=== PATIENT | male | born 1940 | race Caucasian/White ===

== ENCOUNTER 2020-01-04 12:23 | Outpatient (REF) | payer MEDICARE, SELFPAY ==
[2020-01-04 14:44] LABS: Hemoglobin 15.6 g/dl (14.0-18.0); Mean Corpuscular HGB Conc 33.2 g/dl (31.0-36.0); Mean Corpuscular Hemoglobin 34.2 pg (27.0-33.0); Mean Corpuscular Volume 103.1 fL (80-98); Mean Platelet Volume 10.1 fL (9.4-12.4); Platelet Count 261 X10*3/uL (160-400); Red Blood Count 4.56 X10*6/uL (4.60-5.80); Red Cell Distribution Width 14.5 % (11.0-16.0); White Blood Count 9.2 X10*3/uL (4.8-10.8)
[2020-01-04 15:16] LABS: Anion Gap 14 (12-20); Blood Urea Nitrogen 20 mg/dL (9-16); Calcium 9.2 mg/dL (8.4-10.2); Carbon Dioxide 27 mmol/L (22-29); Chloride 102 mmol/L (96-108); Estimated Glomerular Filt Rate > 60; Glucose Random 110 mg/dL (60-115); Potassium 4.3 mmol/l (3.3-5.1); Sodium 139 mmol/L (135-145)
== END 2020-01-04 12:24 | disposition home or self-care (01) ==
LOC: HO.LAB 12:23
PROVIDERS: PCP Internal Medicine; Visit Provider Internal Medicine Cardiovascular Disease
DX: I48.0 Paroxysmal atrial fibrillation (principal); I44.2 Atrioventricular block, complete; I10 Essential (primary) hypertension; Z95.0 Presence of cardiac pacemaker
CPT/HCPCS: 36415; 80048; 85027; 99212

== ENCOUNTER 2020-04-22 10:17 | Outpatient (REF) | payer MEDICARE, SELFPAY ==
[2020-04-22 10:29] LABS: MANUAL DIFF FLAG NO
[2020-04-22 10:52] LABS: Basophils Percent Auto 0.4 % (0-2); Eosinophils Absolute Auto 0.4 X10*3/uL (0.0-0.4); Eosinophils Percent Auto 4.3 % (0-4); Hematocrit 48.5 % (42-52); Hemoglobin 16.1 g/dl (14.0-18.0); Imm Gran Abs Auto 0.05 X10*3/uL (0.00-0.03); Imm Gran Pct Auto 0.6 % (0.0-0.4); Lymphocytes Absolute Auto 2.3 X10*3/uL (1.2-4.9); Lymphocytes Percent Auto 28.6 % (20-40); Mean Corpuscular HGB Conc 33.2 g/dl (31.0-36.0); Mean Corpuscular Volume 102.3 fL (80-98); Mean Platelet Volume 10.7 fL (9.4-12.4); Monocytes Absolute Auto 0.8 X10*3/uL (0.1-1.2); Monocytes Percent Auto 10.4 % (2-11); Neutrophils Absolute Auto 4.5 X10*3/uL (2.0-8.3); Neutrophils Percent Auto 55.7 % (45-73); Platelet Count 247 X10*3/uL (160-400); Red Blood Count 4.74 X10*6/uL (4.60-5.80); Red Cell Distribution Width 13.7 % (11.0-16.0); White Blood Count 8.1 X10*3/uL (4.8-10.8)
[2020-04-22 11:05] LABS: Estimated Average Glucose 126 mg/dL
[2020-04-22 11:06] LABS: Glucose Urine UA NEG (NEG); Leukocyte Esterase Urine NEG (NEG); Nitrite Urine NEG (NEG); Urine Blood NEG (NEG); Urine Ketones NEG (NEG); Urine Protein NEG (NEG-TRACE)
[2020-04-22 11:09] LABS: Appearance Urine CLEAR; Color Urine YELLOW
[2020-04-22 11:47] LABS: Alanine Aminotransferase 32 U/L (0-40); Albumin Level 4.2 g/dL (3.5-5.0); Alkaline Phosphatase 105 U/L (39-117); Anion Gap 14 (12-20); Aspartate Amino Transferase 28 U/L (5-37); Bilirubin Total 0.8 mg/dL (0.0-1.0); Blood Urea Nitrogen 21 mg/dL (9-16); Carbon Dioxide 28 mmol/L (22-29); Chloride 102 mmol/L (96-108); Cholesterol 213 mg/dL; Estimated Glomerular Filt Rate > 60; Glucose Fasting 108 mg/dL (60-99); HDL Cholesterol 40 mg/dL; LDL Cholesterol Calculated 147 mg/dl; Potassium 4.3 mmol/L (3.3-5.1); Sodium 140 mmol/L (135-145); Total Protein 7.2 g/dL (6.5-8.0); Triglycerides 131 mg/dL
== END 2020-04-22 10:18 | disposition home or self-care (01) ==
LOC: HO.LNP 10:17
PROVIDERS: Visit Provider Internal Medicine
DX: Z00.00 Encounter for general adult medical examination without abnormal findings (principal); I10 Essential (primary) hypertension; R73.03 Prediabetes; R79.9 Abnormal finding of blood chemistry, unspecified; R97.20 Elevated prostate specific antigen [PSA]; E78.00 Pure hypercholesterolemia, unspecified
CPT/HCPCS: 80053; 80061; 81003; 83036; 85025

== ENCOUNTER → 2020-07-04 12:39 | Outpatient (BNVA) | payer MEDICARE, SELFPAY | PROVIDERS: PCP Internal Medicine; Visit Provider Internal Medicine Cardiovascular Disease | DX: Z45.018 Encounter for adjustment and management of other part of cardiac pacemaker (principal); I48.0 Paroxysmal atrial fibrillation | CPT/HCPCS: 99212 ==

== ENCOUNTER → 2020-07-21 08:11 | Outpatient (REF) | payer MEDICARE, SELFPAY ==
--- NOTE | 2020-07-21 08:15 | CA_ITS ---
Transthoracic Echocardiogram Patient (Last, First, Middle): Deven Escobar F Gender: Male Date of : 1940 Age: 79 Procedure Date: 07/21/2020 Procedure Type: Transthoracic Echocardiogram Location: OP Height: 167.64 cm Weight: 83.92 kg BSA: 1.93 m2 Heart Rate: bpm BP: 140 / 70 mmHg Nutrition Coordinator: Ronald MD: Dex Blair MD [employer] Planner: Dex Blair MD Symptoms: I48.0 - Paroxysmal atrial fibrillation Study Quality: Fair ECG Rhythm: Ventriculary paced rhythm Conclusions: - 1. Normal LV systolic function with mild LVH with impaired relaxation filling pattern with elevated filling pressures 2. Moderate mitral and calcification with normal cardiac valvular Doppler 3. Normal RV systolic pressure 4. No pericardial effusion Findings Left Ventricle Normal left ventricular size and systolic function. There is mildly increased left ventricular wall thickness. The visually estimated ejection fraction is between 60-65%. There is paradoxical septal motion consistent with a right ventricular pacemaker. Spectral Doppler is indicative of an impaired relaxation filling pattern. Elevated filling pressures. E/E prime ratio is >15, consistent with elevated filling pressures. Right Ventricle Mildly increased right ventricular cavity size. There is normal right ventricular systolic function. There is a pacemaker wire seen in the right ventricle. Atria The left atrium is likely dilated. There is lipomatous hypertrophy of the interatrial septum. There is no evidence of interatrial shunt. The right atrium is likely dilated. A pacemaker wire is identified in the right atrium. Aortic Valve There is mild calcification of the aortic valve. There is no aortic valve stenosis. There is no aortic valve regurgitation. Mitral Valve There is mild anterior and moderate posterior mitral leaflet thickening. There is moderate mitral annular calcification. There is trace mitral valve regurgitation. There is no mitral valve stenosis. Pulmonic Valve The pulmonic valve was not well visualized. Tricuspid Valve Likely normal tricuspid valve structure and function. There is mild tricuspid valve regurgitation. The right ventricular systolic pressure is normal. The right ventricular systolic pressure is 33 mmHg. Normal right atrial pressure. There is no evidence of pulmonary hypertension. Great Vessels All visible segments of the aorta are normal in size. The pulmonary artery was not well visualized. Venous The inferior vena cava is normal in size and collapses greater than 50% with inspiration. Pericardium/Pleural There is no evidence of pericardial effusion. Prior Study Comparison No significant change compared to prior study dated: 06/02/2019. Measurements 2D Linear Measurements RVIDd: 2.63 RVIDd Index: 1.36 IVSd: 1.31 0.6-0.9/0.6-1.0 cm LVIDd: 4.61 3.9-5.3/4.2-5.9 cm LVIDd Index: 2.39 2.4-3.2/2.2-3.1 cm/m2 LVIDs: 3.28 2.0-3.6 cm LVPWd: 1.11 0.7-1.1 cm Ao Root: 3.00 2.1-3.5 cm LA Diam: 3.80 2.7-3.8/3.0-4.0 cm LAIDs Index: 1.97 1.5-2.3 cm/m2 LV Mass: 259.44 67-162/88-224 g LV Mass Index: 134.42 43-95/49-115 g/m2 LVOT Diam: 2.10 3.0+(-)1.3 cm 2D Systolic Function EF 4C: 64.70 >55% EF 2C: 59.10 >55% EF BiP: 61.50 >55% Mitral Valve MV Pk E: 0.97 MV PK A: 1.29 MV Decel Time: 232.00 E/A: 0.70 E'Lateral: 5.55 E'Medial: 5.44 E/E' Med: 17.70 E/E' Lat: 17.40 Aortic Valve AoV Pk Servando: 1.54 AoV Mn Servando: 1.10 AoV VTI: 0.32 AoV Pk Grad: 9.00 Aov Mn Grad: 5.00 DYLAN Cont.VTI: 1.96 LVOT LVOT Pk Servando: 0.84 LVOT Mn Servando: 0.56 LVOT VTI: 0.18 LVOT Pk Grad: 3.00 LVOT Mn Grad: 1.00 LVOT Diam: 2.10 LVOT Area: 3.46 Diastolic Function MV Pk E: 0.97 MV Pk A: 1.29 E/A: 0.70 E'Medial: 5.44 E/E' Med: 17.70 E' Laterial: 5.55 E/E' Lat: 17.40 Tricuspid Valve TR Pk Servando: 2.75 TR Pk Grad: 30.00 RA Press: 3.00 RVSP: 33.00 Great Vessels Aorta Ao Root-2D: 3.00 2.0-3.7 cm Ao Asc: 2.80 2.1-3.4 cm Ao Arch: 2.50 Updated in Other Vendor System with Status of Final Dex Blair MD electronically signed on 07/21/2020 2:09:16 PM with status of Final
== END ==
LOC: HO.CARD 08:11
PROVIDERS: Visit Provider Internal Medicine Cardiovascular Disease
DX: I48.0 Paroxysmal atrial fibrillation (principal); I44.2 Atrioventricular block, complete; I10 Essential (primary) hypertension; Z95.0 Presence of cardiac pacemaker
CPT/HCPCS: 93306

== ENCOUNTER 2021-01-03 09:47 | Outpatient (REF) | payer MEDICARE, SELFPAY ==
[2021-01-03 12:07] LABS: Hematocrit 44.8 % (42.0-52.0); Hemoglobin 14.6 g/dl (14.0-18.0); Mean Corpuscular HGB Conc 32.6 g/dl (31.0-36.0); Mean Corpuscular Hemoglobin 33.5 pg (27.0-33.0); Mean Corpuscular Volume 102.8 fL (80.0-98.0); Mean Platelet Volume 10.8 fL (9.4-12.4); Platelet Count 238 X10*3/uL (160-400); Red Blood Count 4.36 X10*6/uL (4.60-5.80); Red Cell Distribution Width 13.4 % (11.0-16.0); White Blood Count 7.5 X10*3/uL (4.8-10.8)
[2021-01-03 13:08] LABS: Anion Gap 13 (12-20); Blood Urea Nitrogen 23 mg/dL (9-16); Calcium 9.6 mg/dL (8.4-10.2); Carbon Dioxide 28 mmol/L (22-29); Chloride 103 mmol/L (96-108); Estimated Glomerular Filt Rate > 60; Glucose Random 96 mg/dL (60-115); Potassium 4.5 mmol/L (3.3-5.1); Sodium 139 mmol/L (135-145)
== END 2021-01-03 09:48 | disposition home or self-care (01) ==
LOC: HO.LAB 09:47
PROVIDERS: PCP Internal Medicine; Referring Provider Internal Medicine; Visit Provider Internal Medicine Cardiovascular Disease
DX: I48.0 Paroxysmal atrial fibrillation (principal); I10 Essential (primary) hypertension; Z95.0 Presence of cardiac pacemaker; Z79.899 Other long term (current) drug therapy; Z79.51 Long term (current) use of inhaled steroids
CPT/HCPCS: 36415; 80048; 85027; 93005; 99212

== ENCOUNTER 2021-04-27 11:52 | Outpatient (REF) | payer MEDICARE, SELFPAY ==
[2021-04-27 11:59] LABS: MANUAL DIFF FLAG NO
[2021-04-27 12:18] LABS: Basophils Percent Auto 0.4 % (0-2); Eosinophils Absolute Auto 0.2 X10*3/uL (0.0-0.4); Eosinophils Percent Auto 2.5 % (0-4); Hematocrit 49.4 % (42.0-52.0); Hemoglobin 16.1 g/dl (14.0-18.0); Imm Gran Abs Auto 0.05 X10*3/uL (0.00-0.03); Imm Gran Pct Auto 0.6 % (0.0-0.4); Lymphocytes Absolute Auto 2.7 X10*3/uL (1.2-4.9); Lymphocytes Percent Auto 33.2 % (20-40); Mean Corpuscular HGB Conc 32.6 g/dl (31.0-36.0); Mean Corpuscular Hemoglobin 33.7 pg (27.0-33.0); Mean Corpuscular Volume 103.3 fL (80.0-98.0); Mean Platelet Volume 10.8 fL (9.4-12.4); Monocytes Absolute Auto 0.9 X10*3/uL (0.1-1.2); Monocytes Percent Auto 10.9 % (2-11); Neutrophils Absolute Auto 4.3 x10*3/uL (2.0-8.3); Neutrophils Percent Auto 52.4 % (45-73); Platelet Count 258 X10*3/uL (160-400); Red Blood Count 4.78 X10*6/uL (4.60-5.80); Red Cell Distribution Width 14.6 % (11.0-16.0); White Blood Count 8.3 X10*3/uL (4.8-10.8)
[2021-04-27 12:31] LABS: Estimated Average Glucose 120 mg/dL; Hemoglobin A1c % 5.8 %
[2021-04-27 12:32] LABS: Alanine Aminotransferase 36 U/L (0-40); Albumin Level 4.1 g/dL (3.5-5.0); Alkaline Phosphatase 93 U/L (39-117); Anion Gap 13 (12-20); Aspartate Amino Transferase 29 U/L (5-37); Bilirubin Total 0.8 mg/dL (0.0-1.0); Blood Urea Nitrogen 25 mg/dL (9-16); Calcium 9.4 mg/dL (8.4-10.2); Carbon Dioxide 28 mmol/L (22-29); Chloride 103 mmol/L (96-108); Cholesterol 204 mg/dL; Estimated Glomerular Filt Rate > 60; Glucose Fasting 110 mg/dL (60-99); HDL Cholesterol 41 mg/dL; LDL Cholesterol Calculated 139 mg/dl; Sodium 140 mmol/L (135-145); Total Protein 7.1 g/dL (6.5-8.0); Triglycerides 121 mg/dL
[2021-04-27 12:48] LABS: Appearance Urine CLEAR; Color Urine YELLOW; Glucose Urine UA NEG (NEG); Leukocyte Esterase Urine NEG (NEG); Nitrite Urine NEG (NEG); Urine Blood NEG (NEG); Urine Ketones NEG (NEG); Urine Protein NEG (NEG-TRACE)
[2021-04-27 13:00] LABS: PSA,Total (Free>4and<10) 5.17 ng/mL (0.00-4.00)
[2021-04-27 13:05] LABS: Creatinine Urine 101.55 mg/dL; Microalbum/Creatinine Ratio Ur 28.5 ug/mg cr
[2021-04-28 13:40] LABS: Free Prostate Spec Ag 1.1 ng/mL; Percent Free Prostate Spec Ag 24 % (calc) (>25); Prostate Specific Ag Total 4.6 ng/mL (< OR = 4.0)
== END 2021-04-27 11:53 | disposition home or self-care (01) ==
LOC: HO.LNP 11:52
PROVIDERS: Visit Provider Internal Medicine
DX: Z00.00 Encounter for general adult medical examination without abnormal findings (principal); Z12.5 Encounter for screening for malignant neoplasm of prostate; R73.03 Prediabetes; I10 Essential (primary) hypertension; E78.00 Pure hypercholesterolemia, unspecified; R79.9 Abnormal finding of blood chemistry, unspecified; I48.20 Chronic atrial fibrillation, unspecified
CPT/HCPCS: 80053; 80061; 81003; 82043; 83036; 84153; 84154; 85025

== ENCOUNTER → 2021-07-04 09:44 | Outpatient (BNVA) | payer MEDICARE, SELFPAY | PROVIDERS: PCP Internal Medicine; Referring Provider Internal Medicine; Visit Provider Internal Medicine Cardiovascular Disease | DX: Z45.018 Encounter for adjustment and management of other part of cardiac pacemaker (principal); I48.0 Paroxysmal atrial fibrillation; I10 Essential (primary) hypertension | CPT/HCPCS: 93280; 99212 ==

== ENCOUNTER 2021-07-17 17:57 | Emergency (ER) | payer MEDICARE, SELFPAY ==
[2021-07-17 18:28] VITALS: BP 162/118; PULSE 88; RESP 16; TEMP 36.1; O2SAT 97; BMI 30.2
[2021-07-17 18:32] VITALS: BP 184/78
--- NOTE | 2021-07-17 19:27 | ED.WOUNDLAC ---
HPI - Wound/Laceration General Chief Complaint: Wound/Laceration Stated Complaint: fall/lac on L arm Time Seen by Provider: 07/17/21 19:27 Source: patient Mode of arrival: ambulatory Limitations: no limitations History of Present Illness HPI narrative: Patient is on xarelto and paxlovid (his has COVID). He comes in because the wound will not stop bleeding. Patient is up to date with his tetanous. Onset (ago): hour(s) Extremity Location: left: arm Place: home Patient tetanus UTD: Yes Context: accidental Associated symptoms: none Related Data Home Medications Medication Instructions Recorded Confirmed albuterol sulfate 90 mcg/actuation 2 puff PO Q6H PRN 01/04/20 07/04/21 aerosol inhaler irbesartan 150 1 tab PO DAILY 01/04/20 07/04/21 mg-hydrochlorothiazide 12.5 mg tablet tamsulosin 0.4 mg capsule 0.4 mg PO DAILY 07/04/20 07/04/21 Previous Rx's Medication Instructions Recorded rivaroxaban 20 mg tablet (Xarelto) 20 mg PO DAILY 90 Days #90 tab 09/15/20 Allergies Allergy/AdvReac Type Severity Reaction Status Date / Time No Known Allergies Allergy Unverified 11/05/19 15:24 [No Known Allergies*] Review of Systems Constitutional: Constitutional: Reports no additional constitutional complaints Eyes: Eyes: Reports no additional eye complaints ENT: Denies dizziness Cardiovascular: Cardiovascular: Reports no additional cardiovascular complaints Respiratory: Respiratory: Reports as per HPI Gastrointestinal: Gastrointestinal: Reports no additional gastrointestinal complaints Musculoskeletal: Musculoskeletal: Reports no additional musculoskeletal complaints Integumentary/Breasts: Skin/Breast: Denies rash Neurologic: Reports system reviewed and no additional complaints, except as documented, Denies dizziness and Denies Sensory deficit (Neuro) Psychiatric: Psychiatric: Denies anxiety PMFSH Past Medical History Medical History Cardiac pacemaker in situ Complete heart block HTN (hypertension) Paroxysmal atrial fibrillation Surgical History History of permanent cardiac pacemaker placement Hx of hernia repair Hx of laminectomy Family History Family History Father No problems noted. Mother No problems noted. Physical Exam Vital Signs: Vital Signs: Last Vital Signs Temp 96.9 F 07/17/21 18:28 Pulse 88 07/17/21 18:28 Resp 16 07/17/21 18:28 BP 184/78 H 07/17/21 18:32 Pulse Ox 97 07/17/21 18:28 BMI result Body Mass Index 30.2 Const: General: healthy appearing Nutritional Appearance: average body habitus Orientation/consciousness: oriented to person and patient oriented x3 Limitations: no limitations HEENT: Head: Yes normal to inspection Ears: external ears normal General nose exam: Normal external nose present Mouth: Normal oral and palatal mucosa present and oropharynx normal Throat: Yes posterior oropharynx normal Eyes: General: appearance normal, both eyes and all related structures Neck: Other: supple Neck: Yes normal visual inspection Chest: Chest palpation & inspection: normal inspection of the chest Resp: Auscultation: clear to auscultation bilaterally Cardio: Jugular venous distension: no JVD Rate: regular rate Rhythm: regular rhythm Heart sounds: S1 normal heart sound present and S2 normal heart sound present GI: Inspection: Yes normal to inspection Palpation (GI): Soft to palpation, nontender and No hepatosplenomegaly present Auscultation: normal bowel sounds : General: Yes no CVA tenderness Back/Spine/Pelvis: Back: no CVA tenderness Skin: Other: skin tear to left forearm Neuro: General: oriented to person and patient oriented x3 Cranial nerves: Yes CN's II-XII intact bilaterally Motor exam (neuro): 5/5 motor strength present throughout Sensory Exam: No Sensory deficit (Neuro) Extrem: General: Yes normal to inspection Psych: Appearance: grossly normal Course Reevaluation(s) Reevaluation #1: skin tear debrided, surgicel, and wrap provided Time: 19:43 Discharge Plan Discharge Clinical Impression: Skin tear of forearm without complication Patient Disposition: Home, Self-Care Additional Instructions: On Saturday remove gauze and dress with bacitracin, gauze and kerlex wrap, you may reuse yessy bandage to cover the wound Prescriptions: No Action Xarelto 20 mg tablet 20 mg PO DAILY 90 Days Qty: 90 5RF albuterol sulfate 90 mcg/actuation HFA aerosol inhaler 2 puff PO Q6H PRN0RF irbesartan-hydrochlorothiazide 150-12.5 mg tablet 1 tab PO DAILY 0RF tamsulosin 0.4 mg capsule 0.4 mg PO DAILY 0RF Referrals: Samuel Hassan MD [Primary Care Provider] - 1 week
== END 2021-07-17 20:13 | disposition home or self-care (01) ==
PROVIDERS: Emergency Provider Emergency Medicine; PCP Internal Medicine
DX: S41.112A Laceration without foreign body of left upper arm, initial encounter (principal); S51.812A Laceration without foreign body of left forearm, initial encounter; X58.XXXA Exposure to other specified factors, initial encounter; Y93.9 Activity, unspecified; Y92.9 Unspecified place or not applicable; Y99.9 Unspecified external cause status; Z79.01 Long term (current) use of anticoagulants; Z20.822 Contact with and (suspected) exposure to COVID-19; Z79.899 Other long term (current) drug therapy
CPT/HCPCS: 99282

== ENCOUNTER → 2021-07-21 14:29 | Outpatient (BNVA) | payer MEDICARE, SELFPAY | PROVIDERS: PCP Internal Medicine; Referring Provider Internal Medicine; Visit Provider Surgery | DX: S51.819A Laceration without foreign body of unspecified forearm, initial encounter (principal); I48.0 Paroxysmal atrial fibrillation; I10 Essential (primary) hypertension; Z95.0 Presence of cardiac pacemaker; Z79.01 Long term (current) use of anticoagulants | CPT/HCPCS: 17250; 99202 ==

== ENCOUNTER → 2021-07-26 14:47 | Outpatient (BNVA) | payer MEDICARE, SELFPAY | PROVIDERS: PCP Internal Medicine; Visit Provider Surgery | DX: S51.812A Laceration without foreign body of left forearm, initial encounter (principal); I48.0 Paroxysmal atrial fibrillation; I10 Essential (primary) hypertension; Z79.01 Long term (current) use of anticoagulants; Z95.0 Presence of cardiac pacemaker | CPT/HCPCS: 99212 ==

== ENCOUNTER → 2021-07-27 07:32 | Outpatient (REF) | payer MEDICARE, SELFPAY ==
--- NOTE | 2021-07-27 07:36 | CA_ITS ---
Transthoracic Echocardiogram Patient (Last, First, Middle): Deven Escobar F Gender: Male Date of : 1940 Age: 80 Procedure Date: 07/27/2021 Procedure Type: Transthoracic Echocardiogram Location: OP Height: 167.64 cm Weight: 83.92 kg BSA: 1.93 m2 Heart Rate: bpm BP: 168 / 70 mmHg Port Captain: PRISCILA Referring MD: Dex Blair MD Symptoms: Z95.0 - Presence of cardiac pacemaker Study Quality: Fair ECG Rhythm: Sinus Conclusions: - The left ventricular systolic function is normal. The calculated ejection fraction is 63% by biplane method. - There is mild calcification of the aortic valve. - There is mild mitral annular calcification. - There is mild tricuspid valve regurgitation. Findings Left Ventricle Normal left ventricular cavity size. There is mildly increased left ventricular wall thickness. The left ventricular systolic function is normal. The calculated ejection fraction is 63% by biplane method. There is no evidence of regional wall motion abnormalities. There is paradoxical septal motion consistent with a right ventricular pacemaker. Diastolic function is normal for age. Right Ventricle Normal right ventricular cavity size and systolic function. There is a pacemaker wire seen in the right ventricle. Atria Both atria are normal in size. Aortic Valve There is a normal trileaflet aortic valve. There is mild calcification of the aortic valve. There is no aortic valve stenosis. There is no aortic valve regurgitation. Mitral Valve There is mild mitral annular calcification. There is no mitral valve regurgitation. There is no mitral valve stenosis. Pulmonic Valve The pulmonic valve was not well visualized. Tricuspid Valve There is mild tricuspid valve regurgitation. The pulmonary artery systolic pressure is normal. Great Vessels The aortic annulus, sinuses of valsalva, and asc aorta are normal in size. Venous The inferior vena cava is normal in size and collapses greater than 50% with inspiration. Pericardium/Pleural There is no evidence of pericardial effusion. Prior Study Comparison No significant change compared to prior study dated: 07/21/2020. Measurements 2D Linear Measurements IVSd: 1.09 0.6-0.9/0.6-1.0 cm LVIDd: 4.19 3.9-5.3/4.2-5.9 cm LVIDd Index: 2.17 2.4-3.2/2.2-3.1 cm/m2 LVIDs: 2.85 2.0-3.6 cm LVPWd: 1.11 0.7-1.1 cm LA Diam: 3.10 2.7-3.8/3.0-4.0 cm LAIDs Index: 1.61 1.5-2.3 cm/m2 LV Mass: 194.85 67-162/88-224 g LV Mass Index: 100.96 43-95/49-115 g/m2 LVOT Diam: 2.10 3.0+(-)1.3 cm 2D Systolic Function EF 4C: 65.00 >55% EF 2C: 62.20 >55% EF BiP: 63.30 >55% Mitral Valve MV Pk E: 0.83 MV PK A: 1.20 MV Decel Time: 267.00 E/A: 0.70 E'Lateral: 6.53 E'Medial: 5.87 E/E' Med: 14.10 E/E' Lat: 12.60 PHT: 78.00 MVA PHT: 2.82 Decel Ada: 3.09 Aortic Valve AoV Pk Servando: 1.35 AoV Mn Servando: 0.96 AoV VTI: 0.24 AoV Pk Grad: 7.00 Aov Mn Grad: 4.00 DYLAN Cont.VTI: 3.25 LVOT LVOT Pk Servando: 1.05 LVOT Mn Servando: 0.72 LVOT VTI: 0.23 LVOT Pk Grad: 4.00 LVOT Mn Grad: 2.00 LVOT Diam: 2.10 LVOT Area: 3.46 Diastolic Function MV Pk E: 0.83 MV Pk A: 1.20 E/A: 0.70 E'Medial: 5.87 E/E' Med: 14.10 E' Laterial: 6.53 E/E' Lat: 12.60 Right Ventricle TAPSE (mm): 22.60 TVS' Servando: 14.70 Tricuspid Valve TR Pk Servando: 2.66 TR Pk Grad: 28.00 RA Press: 3.00 RVSP: 31.00 Great Vessels Aorta Sinus of Valsalva: 3.30 2.0-3.[address] [place]: 2.59 1.7-3.4 cm Ao Asc: 3.30 2.1-3.4 cm Updated in Other Vendor System with Status of Final Calros Nguyen MD electronically signed on 07/30/2021 12:06:03 PM with status of Final
== END ==
LOC: HO.CARD 07:32
PROVIDERS: PCP Internal Medicine; Visit Provider Internal Medicine Cardiovascular Disease
DX: I50.9 Heart failure, unspecified (principal); Z95.0 Presence of cardiac pacemaker
CPT/HCPCS: 93306

== ENCOUNTER → 2021-08-02 14:47 | Outpatient (BNVA) | payer MEDICARE, SELFPAY | PROVIDERS: PCP Internal Medicine; Visit Provider Surgery | DX: S51.819A Laceration without foreign body of unspecified forearm, initial encounter (principal); I48.0 Paroxysmal atrial fibrillation; I10 Essential (primary) hypertension; Z79.01 Long term (current) use of anticoagulants; Z95.0 Presence of cardiac pacemaker | CPT/HCPCS: 99212 ==

== ENCOUNTER → 2021-10-19 09:45 | Outpatient (BNVA) | payer MEDICARE, SELFPAY | PROVIDERS: PCP Internal Medicine; Visit Provider Internal Medicine Cardiovascular Disease | DX: Z45.018 Encounter for adjustment and management of other part of cardiac pacemaker (principal) | CPT/HCPCS: 93280 ==

== ENCOUNTER → 2021-11-20 12:53 | Outpatient (BNVA) | payer MEDICARE, SELFPAY | PROVIDERS: PCP Internal Medicine; Visit Provider Nurse Practitioner Family | DX: Z45.018 Encounter for adjustment and management of other part of cardiac pacemaker (principal) | CPT/HCPCS: 93280 ==

== ENCOUNTER → 2022-01-09 10:40 | Outpatient (BNVA) | payer MEDICARE, SELFPAY | PROVIDERS: PCP Internal Medicine; Referring Provider Internal Medicine; Visit Provider Internal Medicine Cardiovascular Disease | DX: Z45.018 Encounter for adjustment and management of other part of cardiac pacemaker (principal); I48.0 Paroxysmal atrial fibrillation; I10 Essential (primary) hypertension | CPT/HCPCS: 93280; 99212 ==

== ENCOUNTER → 2022-04-10 14:10 | Outpatient (BNVA) | payer MEDICARE, SELFPAY | PROVIDERS: PCP Internal Medicine; Referring Provider Internal Medicine; Visit Provider Internal Medicine Cardiovascular Disease | DX: Z13.89 Encounter for screening for other disorder (principal) ==

== ENCOUNTER 2022-04-30 11:09 | Outpatient (REF) | payer MEDICARE, SELFPAY ==
[2022-04-30 11:14] LABS: MANUAL DIFF FLAG NO
[2022-04-30 11:52] LABS: Basophils Percent Auto 0.5 % (0-2); Eosinophils Absolute Auto 0.2 X10*3/uL (0.0-0.4); Eosinophils Percent Auto 2.3 % (0-4); Hematocrit 48.9 % (42.0-52.0); Hemoglobin 16.1 g/dl (14.0-18.0); Imm Gran Abs Auto 0.04 X10*3/uL (0.00-0.03); Imm Gran Pct Auto 0.5 % (0.0-0.4); Lymphocytes Absolute Auto 2.6 X10*3/uL (1.2-4.9); Lymphocytes Percent Auto 33.5 % (20-40); Mean Corpuscular HGB Conc 32.9 g/dl (31.0-36.0); Mean Corpuscular Hemoglobin 32.5 pg (27.0-33.0); Mean Corpuscular Volume 98.6 fL (80.0-98.0); Mean Platelet Volume 10.5 fL (9.4-12.4); Monocytes Absolute Auto 0.8 X10*3/uL (0.1-1.2); Monocytes Percent Auto 10.3 % (2-11); Neutrophils Absolute Auto 4.1 x10*3/uL (2.0-8.3); Neutrophils Percent Auto 52.9 % (45-73); Platelet Count 239 X10*3/uL (160-400); Red Blood Count 4.96 X10*6/uL (4.60-5.80); Red Cell Distribution Width 13.8 % (11.0-16.0); White Blood Count 7.8 X10*3/uL (4.8-10.8)
[2022-04-30 12:21] LABS: Appearance Urine Clear; Color Urine Yellow; Glucose Urine UA Negative (Negative); Leukocyte Esterase Urine Negative (Negative); Nitrite Urine Negative (Negative); Specific Gravity - Urine 1.015 (1.005-1.025); Urine Blood Negative (Negative); Urine Ketones Negative (Negative); Urine Protein Negative (Neg-Trace)
[2022-04-30 12:26] LABS: Estimated Average Glucose 126 mg/dL
[2022-04-30 12:28] LABS: Bacteria Urine None Seen (None Seen); Hyaline Casts Urine 0-2 /LPF (0-2); RBC Urine 0-2 /HPF (0-2); Squamous Epithelial Cell Urine 0-2 /HPF (0-2); WBC Urine 0-5 /HPF (0-5)
[2022-04-30 12:33] LABS: Alanine Aminotransferase 17 U/L (0-40); Alkaline Phosphatase 102 U/L (39-117); Anion Gap 13 (12-20); Aspartate Amino Transferase 18 U/L (5-37); Bilirubin Total 0.9 mg/dL (0.0-1.0); Blood Urea Nitrogen 21 mg/dL (9-16); Calcium 9.1 mg/dL (8.4-10.2); Carbon Dioxide 29 mmol/L (22-29); Chloride 105 mmol/L (96-108); Cholesterol 195 mg/dL; Estimated Glomerular Filt Rate > 60; Glucose Fasting 110 mg/dL (60-99); HDL Cholesterol 38 mg/dL; LDL Cholesterol Calculated 133 mg/dl; Potassium 4.4 mmol/L (3.3-5.1); Sodium 143 mmol/L (135-145); Total Protein 6.8 g/dL (6.5-8.0); Triglycerides 122 mg/dL
[2022-04-30 13:33] LABS: Creatinine Urine 102.72 mg/dL; Microalbum/Creatinine Ratio Ur 27.2 ug/mg cr
[2022-05-02 10:53] LABS: Percent Free Prostate Spec Ag 19 % (calc) (>25); Prostate Specific Ag Total 5.2 ng/mL (< OR = 4.0)
== END 2022-04-30 11:10 | disposition home or self-care (01) ==
LOC: HO.LNP 11:09
PROVIDERS: Visit Provider Internal Medicine
DX: Z00.00 Encounter for general adult medical examination without abnormal findings (principal); R73.09 Other abnormal glucose; I10 Essential (primary) hypertension; R79.9 Abnormal finding of blood chemistry, unspecified; Z12.5 Encounter for screening for malignant neoplasm of prostate
CPT/HCPCS: 80053; 80061; 81001; 82043; 83036; 84153; 84154; 85025

== ENCOUNTER → 2022-06-27 11:07 | Outpatient (BNVA) | payer MEDICARE, SELFPAY | PROVIDERS: PCP Internal Medicine; Referring Provider Internal Medicine; Visit Provider Internal Medicine Cardiovascular Disease | DX: Z45.018 Encounter for adjustment and management of other part of cardiac pacemaker (principal); I48.0 Paroxysmal atrial fibrillation; I10 Essential (primary) hypertension | CPT/HCPCS: 93005; 93280; 99212 ==

== ENCOUNTER → 2022-07-17 08:51 | Outpatient (BNVA) | payer MEDICARE, SELFPAY | PROVIDERS: PCP Internal Medicine; Referring Provider Internal Medicine Cardiovascular Disease; Visit Provider Surgery | DX: Z45.010 Encounter for checking and testing of cardiac pacemaker pulse generator [battery] (principal); T82.110A Breakdown (mechanical) of cardiac electrode, initial encounter | CPT/HCPCS: 99202 ==

== ENCOUNTER 2022-08-23 07:08 | Day surgery (SDC) | payer MEDICARE, SELFPAY ==
[2022-08-20 09:07] VITALS: BMI 28.6
--- NOTE | 2022-08-22 14:27 | MHC.SHP ---
Pre-Procedural Eval Section A Date of Service: 08/22/22 The patient is an INPATIENT: No Changes since office visit: No Cold of Flu in the past 2 weeks, No New Medical Problems, No Changes in Medication and No Patient answered all questions The History & Physical has been completed within 30 days and I have reviewed it.: Yes Section B Chief Complaint: checking and testing of pacemaker/generator Allergies: Allergies Allergy/AdvReac Type Severity Reaction Status Date / Time No Known Allergies Allergy Verified 07/17/22 09:00 [No Known Allergies*] Plan I have reviewed the history and physical and performed a pertinent physical examination on my patient. No changes have occurred unless specified. Time Spent With Patient Time: Total time managing care of this patient today ____ minutes.
[2022-08-23 07:27] VITALS: BP 138/81; PULSE 86; RESP 16; TEMP 36.6; O2SAT 95
--- NOTE | 2022-08-23 08:09 | HO.ANESPROP2 ---
HPI - Anesthesia Eval Consult details Narrative: 81 yo M presenting for pacemaker generator change. [facility] Active Problems Active Problems: All Active Problems (Updated 07/17/22 @ 09:50 by Tashi Gil MD) Laceration of skin of forearm (Acute) Anticoagulated (Acute) Pacemaker at end of battery life (Acute) Pacemaker lead failure (Acute) Paroxysmal atrial fibrillation (Acute) Cardiac pacemaker in situ (Acute) HTN (hypertension) (Acute) Past Medical History Medical History Cardiac pacemaker in situ Complete heart block HTN (hypertension) Paroxysmal atrial fibrillation Family History Family History Father No problems noted. Mother No problems noted. Surgical History Surgical History History of permanent cardiac pacemaker placement Hx of hernia repair Hx of laminectomy History of Problems with Anesthesia: No Social History Social History Alcohol intake: never Patient Tobacco Use Status: Never used Tobacco Use of substances other than those prescribed or required for medical reasons: No Are you DNR?: No Advance Directives: No Advance Directives Information Provided: Yes Recently lost weight without trying: No Nutrition Risks: No Nutritional Risk Meds Allergies Allergy/AdvReac Type Severity Reaction Status Date / Time No Known Allergies Allergy Verified 07/17/22 09:00 [No Known Allergies*] Active Medications: Current Medications Lactated Ringer's (Lr) 1,000 mls @ 80 mls/hr IVCONT .[id number] [facility] Last Admin: 08/23/22 07:44 Dose: 80 mls/hr Home Medications Medication Instructions Recorded Confirmed Last Taken Type albuterol sulfate 90 mcg/actuation 2 puff PO Q6H PRN Wheezing 01/04/20 08/20/22 Unknown History aerosol inhaler irbesartan 150 1 tab PO DAILY 01/04/20 08/20/22 Unknown History mg-hydrochlorothiazide 12.5 mg tablet trospium 20 mg tablet 20 mg PO BEDTIME 08/20/22 08/20/22 Unknown History Exam Exam Date and Time: August 23, 2022 0809 Height,Weight and Vital Signs: Height 5 ft 6 in Weight 80.286 kg Last Vital Signs Temp 97.8 F 08/23/22 07:27 Pulse 86 08/23/22 07:27 Resp 16 08/23/22 07:27 BP 138/81 08/23/22 07:27 Pulse Ox 95 08/23/22 07:27 O2 Del Method Room Air 08/23/22 07:27 Airway Mallampati Class: II TM Dist: >3cm Neck ROM: Full Loose/Missing/Broken Teeth: No Heart: S1S2 Lungs: CTAB Assessment and Plan Final Anesthetic Review History of Problems with Anesthesia: No NPO: Yes ASA Class: II Final Preanesthetic Review: No Changes in Pt Med Stat, Meds/Allgs Chart Reviewed, Consent Obtained/Reviewed and Anes Risks/Benef Reviewed Patient Risk: Intermediate Procedure Risk: Low Anesthetic Plan Anesthetic Plan: MAC: and Agree w/ Assess. and Plan Disposition: Standard PACU
--- NOTE | 2022-08-23 09:42 | W.PM.OPN ---
Operative Note Operative Note Date of Service: 08/23/22 Narrative: Preoperative diagnosis: [] Pacemaker generator depletion, nonfunctioning ventricular lead Postop diagnosis: [] Same Procedure [] ventricular pacemaker lead placement, generator change, fluoroscopy Surgeon: [] Jeffery Applications Processor: [] Divine BHATIA Type of Anesthesia: [] MAC Indication for surgery: [] Non functioning ventricular lead, generator depletion Findings: [] Patient brought to the operating room, placed on operative table in supine position, after adequate level of MAC anesthesia was induced, the right neck and chest were prepped and draped in usual sterile fashion. Prior to this, patient had a shoulder roll placed, head turned to the left. Incision site was infiltrated 0.5% Marcaine/1% lidocaine and incision was made over the prior scar from the previous pacemaker pocket placement, this carried down through skin, subcutaneous tissue, down to the pacemaker pocket. There was significant cicatrization and scarring. Generator pocket was entered and generator removed. Atrial and ventricular leads were dissected free. Leads were reinterrogate it by [employer] and again confirmed that ventricular lead was inadequately functioning. With the patient in Trendelenburg position, right arm was pulled inferiorly, and several attempts at right subclavian vein access were attempted unsuccessfully. Because of the marked scarring of the area, along with the 2 originally placed pacemaker leads, as well as to avoid a pneumothorax, it was decided to obtain venous access through the right internal jugular vein, which was uneventfully performed and a wire advanced to the level of the superior vena cava under fluoroscopic guidance. Dilating sheath is placed over the wire and the wire retrieved. Ventricular lead was advanced over the dilating sheath to the level of the right ventricle with appropriate positioning with good sensing and capture. Please refer to [employer] work sheet regarding these values. Ventricular lead was then placed through a subcutaneous tunnel to the pocket. Lead was secured to the pocket using interrupted 3-0 silk sutures to the security flange. New ventricular lead was attached to a new generator and screwed in/secured. The original atrial lead was removed from the old generator and reconnected to the new generator and again screwed in/secured. These were interrogated and found to be within normal limits. Original nonfunctioning retained ventricular lead was disconnected from the original generator, capped, and the cap secured with 3-0 silk tie. The generator was returned to the original pocket. Wounds were irrigated, secured hemostasis, and closed in the following manner; interrupted inverted dermal 3-0 Vicryl sutures followed by Steri-Strips and sterile dressings were applied. Sponge, needle, instrument counts reported correct. Patient tolerated the procedure well and emerged anesthesia in stable condition. EBL minimal. Right upper extremity was placed in a sling at completion of the procedure. Postprocedure x-ray performed in the operating room demonstrated no pneumothorax and leads in appropriate positions.
[2022-08-23 09:45] VITALS: BP 152/62; PULSE 67; RESP 18; TEMP 36.1; O2SAT 95
[2022-08-23 10:00] VITALS: BP 145/65; PULSE 70; RESP 15; O2SAT 96
[2022-08-23 10:15] VITALS: BP 144/66; PULSE 65; RESP 14; TEMP 36.1; O2SAT 97
== END 2022-08-23 10:39 | disposition home or self-care (01) ==
PROVIDERS: PCP Internal Medicine; Visit Provider Surgery
PROC: (CPT 33207; principal; 2022-08-23 08:40)
DX: T82.110A Breakdown (mechanical) of cardiac electrode, initial encounter (principal); T82.111A Breakdown (mechanical) of cardiac pulse generator (battery), initial encounter; I44.2 Atrioventricular block, complete; Y83.8 Other surgical procedures as the cause of abnormal reaction of the patient, or of later complication, without mention of misadventure at the time of the procedure; Y92.9 Unspecified place or not applicable
CPT/HCPCS: 33207; 33233; C1785; C1892; C1898; J0690; J2370; J2371; J2795; J3010

== ENCOUNTER 2022-08-31 10:23 | Outpatient (AMB) | payer MEDICARE, SELFPAY ==
[2022-08-31 10:42] VITALS: BP 169/79; PULSE 74
--- NOTE | 2022-08-31 10:42 | MHC.OFFVIS ---
Intake Vital Signs 08/31/22 10:42 Weight 173 lb BP 169/79 H Blood Pressure Location Rt brachial Position Sitting Pulse 74 Intake Visit Reasons: S/P pacemaker Intake Note: Patient here s/p pacemaker. Patient reports incisions healing well. Denies bleeding, oozing or pain. Patient did not take rx pain meds. Spindle Sander Required: No Accompanied by: Self / Same As Patient Allergies No Known Allergies [No Known Allergies*] Allergy (Verified 08/31/22 10:44) HPI HPI Comments History of Present Illness Details Patient presents for follow-up status post ventricular lead replacement and generator change. He is doing well. He has minimal incisional discomfort. [facility] Medical History Cardiac pacemaker in situ Complete heart block HTN (hypertension) Paroxysmal atrial fibrillation Surgical History History of permanent cardiac pacemaker placement Hx of hernia repair Hx of laminectomy Family History Father No problems noted. Mother No problems noted. Social History Alcohol intake: never Patient Tobacco Use Status: Never used Tobacco Physical Exam Vital Signs: Last Vital Signs Pulse 74 08/31/22 10:42 BP 169/79 H 08/31/22 10:42 Chest Other: Wounds are clean dry and intact , healing uneventfully. Assessment & Plan Assessment & Plan (1) Pacemaker lead failure: Code(s): T82.110A - Breakdown (mechanical) of cardiac electrode, initial encounter (2) Pacemaker at end of battery life: Code(s): Z45.010 - Encounter for checking and testing of cardiac pacemaker pulse generator [battery] Plan Patient is doing well and will follow up p.r.n.. 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
== END 2022-08-31 10:52 | disposition home or self-care (01) ==
PROVIDERS: PCP Internal Medicine; Visit Provider Surgery
DX: T82.110A Breakdown (mechanical) of cardiac electrode, initial encounter (principal); Z45.010 Encounter for checking and testing of cardiac pacemaker pulse generator [battery]
CPT/HCPCS: 99024

== ENCOUNTER → 2022-08-31 10:23 | Outpatient (BNVA) | payer MEDICARE, SELFPAY | PROVIDERS: PCP Internal Medicine; Visit Provider Surgery ==

== ENCOUNTER → 2022-10-01 23:59 | Outpatient (BNV) | payer MEDICARE, SELFPAY ==
--- NOTE | 2022-10-01 11:08 | MHC.OFFVIS ---
Intake Intake Visit Reasons: REmote Pacer monitoring- [employer] Allergies No Known Allergies [No Known Allergies*] Allergy (Verified 08/31/22 10:44) PFSH Medical History Cardiac pacemaker in situ Complete heart block HTN (hypertension) Paroxysmal atrial fibrillation Surgical History History of permanent cardiac pacemaker placement Hx of hernia repair Hx of laminectomy Family History Father No problems noted. Mother No problems noted. Social History Alcohol intake: never Patient Tobacco Use Status: Never used Tobacco Office Procedures Cardiac Device Check Cardiac Device Check Details: Remote pacemaker report generated 10/01/2022. Pacemaker function is adequate [id number] Cardiac Device Interrogation, cardio physiologic monitor Procedure code (CPT) selection complete Coding Level of Care Code Procedure Only Diagnoses CPT Codes Cardiac Device Check - Cardiac Device 15: [id number] Cardiac Device Interrogation, cardio physiologic monitor ([id number])
== END ==
PROVIDERS: PCP Internal Medicine; Visit Provider Internal Medicine Cardiovascular Disease
DX: I50.9 Heart failure, unspecified (principal); Z95.0 Presence of cardiac pacemaker
CPT/HCPCS: 93297

== ENCOUNTER 2022-10-16 11:14 | Outpatient (AMB) | payer MEDICARE, SELFPAY ==
--- NOTE | 2022-10-16 11:28 | A.OFFVIS_ITS ---
Intake Vital Signs 10/16/22 11:29 Height 5 ft 6 in Weight 174 lb 2.643 oz BMI 28.1 BP 126/80 Blood Pressure Location Lt brachial Position Sitting Pulse 73 Intake Visit Reasons: 6 week follow-up after Medtronic Intake Note: 6 week follow-up with Medtronc check feeling good Assembly Person Required: No Allergies No Known Allergies [No Known Allergies*] Allergy (Verified 08/31/22 10:44) Medication List - Last Reconciled 10/16/22 by Dex Blair MD albuterol sulfate 90 mcg/actuation 2 puffs PO Q6H PRN irbesartan-hydrochlorothiazide 150-12.5 mg 1 tab PO DAILY rivaroxaban (Xarelto) 20 mg PO DAILY 30 days trospium 20 mg PO BEDTIME HPI HPI Comments History of Present Illness Details Deven comes for follow-up. He denies any new complaints. He does have no restriction to his activity level. He has no exertional chest pain or shortness of breath. Denies any lightheadedness, syncope. No prolonged palpitations irregular heartbeat. No bleeding issues or neurologic events. 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 Mother No problems noted. Social History Alcohol intake: never Patient Tobacco Use Status: Never used Tobacco Review of Systems Const Denies chills, Denies fatigue, Denies fever(s), Denies frequent falls, Denies weakness, Denies weight gain and Denies weight loss ENT Denies dizziness Card Denies chest pain, Denies leg edema, Denies lightheadedness, Denies palpitations, Denies dyspnea, Denies dyspnea on exertion, Denies orthopnea and Denies other (loss of consciousness) Resp Denies cough, Denies dyspnea and Denies dyspnea on exertion GI Denies hematochezia and Denies change in stool character Musc Denies abnormal gait, Denies muscle weakness, Denies numbness, Denies radiating pain into limb and Denies tingling Neuro Denies abnormal gait, Denies dizziness, Denies frequent falls, Denies numbness, Denies tingling and Denies weakness Endo Denies fatigue and Denies palpitations Physical Exam Vital Signs: Last Vital Signs Pulse 73 10/16/22 11:29 BP 126/80 10/16/22 11:29 BMI result Body Mass Index 28.1 Const General: cooperative, comfortable, no acute distress, alert and awake Nutritional Appearance: overweight Orientation/consciousness: patient oriented x3 Limitations: no limitations Neck Neck: Yes trachea midline, Yes supple and Yes no JVD Resp Effort & Inspection: normal respiratory effort Auscultation: clear to auscultation bilaterally Cardio Jugular venous distension: no JVD Palpation: normal PMI Rate: regular rate Rhythm: regular rhythm Heart sounds: S1 normal heart sound present and S2 normal heart sound present GI Auscultation: normal bowel sounds Skin General skin exam: no rashes or lesions noted and ecchymosis Neuro General: patient oriented x3 and no focal motor deficits Extrem General: Yes no clubbing, cyanosis or edema Psych Appearance: grossly normal Office Procedures Cardiac Device Check Cardiac Device Check Details: Dual-chamber Medtronic pacemaker in place. Programmed in DDD at 60 beats per minute. Ventricular pacing 100% time. One episode of nonsustained VT noted. One episode of paroxysmal atrial fibrillation noted lasted 3 minutes. Patient no symptoms during that time. Atrial sensitivity is adequate. Ventricular sensitivity could not be checked. Atrial pacing thresholds adequate. Ventricular pacing thresholds are excellent and reprogrammed to enhance battery life. Pacing lead impedance is stable. Battery life is at 15 years [id number] Cardiac Device Check, pacemaker dual lead Procedure code (CPT) selection complete Assessment & Plan Assessment & Plan (1) Paroxysmal atrial fibrillation: Code(s): I48.0 - Paroxysmal atrial fibrillation Plan: paroxysmal atrial fibrillation which has remained suppressed and without any significant symptoms. Continue current therapy with Xarelto. Semi annual renal function test should be pursued. Importance of oral anticoagulation therapy was discussed. No indication for antiarrhythmic drug therapy at this point in time (2) Cardiac pacemaker in situ: Comment: implanted February 2015 you for advanced AV block. Medtronic dual-chamber [facility] Code(s): Z95.0 - Presence of cardiac pacemaker Plan: cardiac pacemaker in-situ for advanced AV block and now patient pacer dependent in the ventricle. Pacemaker is adequately program. Will follow remotely in 3 months time. Follow up in the clinic in 6 months time. (3) HTN (hypertension): Code(s): I10 - Essential (primary) hypertension Plan: Hypertension which is currently well optimized on current therapy. Continue the same. Importance of good blood pressure control was discussed. Target goal blood pressure less than 130/84. Advised to maintain activity level as tolera juliana. Low-salt diet was discussed. Follow up in the clinic in 6 months time, sooner p.r.n.. Thank you for allowing me to partake in his care Orders: Orders Basic Metabolic Panel Today I48.0 - Paroxysmal atrial fibrillation Coding Level of Care Code Est Pt Level 4 (83564) Diagnoses Paroxysmal atrial fibrillation I48.0 Cardiac pacemaker in situ Z95.0 HTN (hypertension) I10 CPT Codes Cardiac Device Check - Cardiac Device 2: [id number] Cardiac Device Check, pacemaker dual lead ([id number])
[2022-10-16 11:29] VITALS: BP 126/80; PULSE 73; BMI 28.1
== END 2022-10-16 11:51 | disposition home or self-care (01) ==
PROVIDERS: PCP Internal Medicine; Referring Provider Internal Medicine; Visit Provider Internal Medicine Cardiovascular Disease
DX: I48.0 Paroxysmal atrial fibrillation (principal); Z95.0 Presence of cardiac pacemaker; I10 Essential (primary) hypertension
CPT/HCPCS: 93280; 99214

== ENCOUNTER 2022-10-16 11:14 | Outpatient (REF) | payer MEDICARE, SELFPAY ==
[2022-10-16 12:54] LABS: Anion Gap 14 (12-20); Blood Urea Nitrogen 21 mg/dL (9-16); Carbon Dioxide 26 mmol/L (22-29); Chloride 107 mmol/L (96-108); Estimated Glomerular Filt Rate > 60; Glucose Random 102 mg/dL (60-115); Potassium 4.5 mmol/L (3.3-5.1); Sodium 142 mmol/L (135-145)
== END 2022-10-16 11:15 | disposition home or self-care (01) ==
LOC: HO.LAB 11:14
PROVIDERS: PCP Internal Medicine; Referring Provider Internal Medicine; Visit Provider Internal Medicine Cardiovascular Disease
DX: I48.0 Paroxysmal atrial fibrillation (principal); I10 Essential (primary) hypertension; Z95.0 Presence of cardiac pacemaker
CPT/HCPCS: 36415; 80048; 93280; 99212

== ENCOUNTER → 2022-12-30 23:59 | Outpatient (BNV) | payer MEDICARE, SELFPAY ==
--- NOTE | 2022-12-31 12:02 | MHC.OFFVIS ---
Intake Intake Visit Reasons: Remote Device Check- Medtronic Allergies No Known Allergies [No Known Allergies*] Allergy (Verified 08/31/22 10:44) PFS Medical History Cardiac pacemaker in situ Complete heart block HTN (hypertension) Paroxysmal atrial fibrillation Surgical History History of permanent cardiac pacemaker placement Hx of hernia repair Hx of laminectomy Family History Father No problems noted. Mother No problems noted. Social History Alcohol intake: never Patient Tobacco Use Status: Never used Tobacco Office Procedures Cardiac Device Check Cardiac Device Check Details: Remote pacemaker report generated 12/30/2022. Pacemaker function is stable [id number] Cardiac Device Interrogation, pacemaker Procedure code (CPT) selection complete Coding Level of Care Code Procedure Only CPT Codes Cardiac Device Check - Cardiac Device 12: [id number] Cardiac Device Interrogation, pacemaker ([id number])
== END ==
PROVIDERS: PCP Internal Medicine; Visit Provider Internal Medicine Cardiovascular Disease
DX: I44.2 Atrioventricular block, complete (principal); Z95.0 Presence of cardiac pacemaker
CPT/HCPCS: 93294

== ENCOUNTER → 2023-03-31 23:59 | Outpatient (BNV) | payer MEDICARE, SELFPAY ==
--- NOTE | 2023-04-01 12:28 | MHC.OFFVIS ---
Intake Intake Visit Reasons: Remote Device Check- Medtronic Allergies No Known Allergies [No Known Allergies*] Allergy (Verified 08/31/22 10:44) PFS Medical History Cardiac pacemaker in situ Complete heart block HTN (hypertension) Paroxysmal atrial fibrillation Surgical History History of permanent cardiac pacemaker placement Hx of hernia repair Hx of laminectomy Family History Father No problems noted. Mother No problems noted. Social History Alcohol intake: never Patient Tobacco Use Status: Never used Tobacco Office Procedures Cardiac Device Check Cardiac Device Check Details: Remote pacemaker report generated 03/31/2023. Pacemaker function is adequate. Patient ventricularly pacer dependent [id number] Cardiac Device Interrogation, pacemaker Procedure code (CPT) selection complete Assessment & Plan Assessment & Plan (1) Cardiac pacemaker in situ: Comment: implanted February 2015 you for advanced AV block. Medtronic dual-chamber pacemaker Code(s): Z95.0 - Presence of cardiac pacemaker Plan: See above Coding Level of Care Code Procedure Only Diagnoses Cardiac pacemaker in situ Z95.0 CPT Codes Cardiac Device Check - Cardiac Device 12: [id number] Cardiac Device Interrogation, pacemaker ([id number])
== END ==
PROVIDERS: PCP Internal Medicine; Visit Provider Internal Medicine Cardiovascular Disease
DX: I48.0 Paroxysmal atrial fibrillation (principal); Z95.0 Presence of cardiac pacemaker
CPT/HCPCS: 93294

== ENCOUNTER 2023-04-23 09:09 | Outpatient (REF) | payer MEDICARE, SELFPAY ==
[2023-04-23 11:08] LABS: Hemoglobin 16.2 g/dl (14.0-18.0); Mean Corpuscular HGB Conc 33.1 g/dl (31.0-36.0); Mean Corpuscular Hemoglobin 33.5 pg (27.0-33.0); Mean Corpuscular Volume 101.2 fL (80.0-98.0); Platelet Count 222 X10*3/uL (160-400); Red Blood Count 4.84 X10*6/uL (4.60-5.80); Red Cell Distribution Width 13.6 % (11.0-16.0); White Blood Count 9.4 X10*3/uL (4.8-10.8)
[2023-04-23 11:51] LABS: Anion Gap 13 (12-20); Blood Urea Nitrogen 19 mg/dL (9-16); Calcium 9.8 mg/dL (8.4-10.2); Carbon Dioxide 30 mmol/L (22-29); Chloride 103 mmol/L (96-108); Estimated Glomerular Filt Rate > 60; Glucose Random 99 mg/dL (60-115); Potassium 4.4 mmol/L (3.3-5.1); Sodium 142 mmol/L (135-145)
== END 2023-04-23 09:10 | disposition home or self-care (01) ==
LOC: HO.LAB 09:09
PROVIDERS: PCP Internal Medicine; Visit Provider Internal Medicine Cardiovascular Disease
DX: I48.0 Paroxysmal atrial fibrillation (principal); I47.29 Other ventricular tachycardia; Z95.0 Presence of cardiac pacemaker
CPT/HCPCS: 36415; 80048; 85027; 93280; 99212

== ENCOUNTER 2023-04-23 09:09 | Outpatient (AMB) | payer MEDICARE, SELFPAY ==
[2023-04-23 09:15] VITALS: BP 136/72; PULSE 70; BMI 28.1
--- NOTE | 2023-04-23 09:15 | A.OFFVIS_ITS ---
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 He has been doing very well from cardiac perspective. He has no new cardiac symptoms. Denies any palpitations. Denies any lightheadedness, syncope. Denies any worsening symptoms of chest pain or sh ortness of breath. No orthopnea, PND, leg edema. No bleeding issues or neurologic events. [facility] Medical History Paroxysmal atrial fibrillation Cardiac pacemaker in situ Complete heart block HTN (hypertension) Surgical History (Updated 04/23/23 @ 09:43 by Dex Blair MD) Pacemaker at end of battery life History of permanent cardiac pacemaker placement Hx of laminectomy Hx of hernia repair Family History Father No problems noted. Mother No problems noted. Social History Alcohol intake: never Patient Tobacco Use Status: Never used Tobacco Review of Systems Const Denies chills, Denies fatigue, Denies fever(s), Denies frequent falls, Denies weakness, Denies weight gain and Denies weight loss ENT Denies dizziness Card Denies chest pain, Denies leg edema, Denies lightheadedness, Denies palpitations, Denies dyspnea, Denies dyspnea on exertion, Denies orthopnea and Denies other (loss of consciousness) Resp Denies cough, Denies dyspnea and Denies dyspnea on exertion GI Denies hematochezia and Denies change in stool character Musc Denies abnormal gait, Denies muscle weakness, Denies numbness, Denies radiating pain into limb and Denies tingling Neuro Denies abnormal gait, Denies dizziness, Denies frequent falls, Denies numbness, Denies tingling and Denies weakness Endo Denies fatigue and Denies palpitations Physical Exam Vital Signs: Last Vital Signs Pulse 70 04/23/23 09:15 BP 136/72 04/23/23 09:15 BMI result Body Mass Index 28.1 Const General: cooperative, comfortable, no acute distress, alert and awake Nutritional Appearance: overweight Orientation/consciousness: patient oriented x3 Limitations: no limitations Neck Neck: Yes trachea midline, Yes supple and Yes no JVD Resp Effort & Inspection: normal respiratory effort Auscultation: clear to auscultation bilaterally Cardio Jugular venous distension: no JVD Palpation: normal PMI Rate: regular rate Rhythm: regular rhythm Heart sounds: S1 normal heart sound present and S2 normal heart sound present GI Auscultation: normal bowel sounds Skin General skin exam: no rashes or lesions noted and ecchymosis Neuro General: patient oriented x3 and no focal motor deficits Extrem General: Yes no clubbing, cyanosis or edema Psych Appearance: grossly normal Office Procedures Cardiac Device Check Cardiac Device Check Details: Dual-chamber Medtronic pacemaker in place. Ventricularly pacer dependent. Programmed in DDD at 60 beats per minute. Minimal atrial fibrillation burden noted. Three episodes of nonsustained VT noted. Atrial sensing was adequate. Atrial capture thresholds adequate. Ventricular capture thresholds adequate and reprogrammed to enhance battery life. Pacing lead impedance is stable. Battery life is excellent at about 12 years [id number] Cardiac Device Check, pacemaker dual lead Procedure code (CPT) selection complete Assessment & Plan Assessment & Plan (1) Cardiac pacemaker in situ: Comment: implanted February 2015 you for advanced AV block. Medtronic dual-chamber pacemaker Code(s): Z95.0 - Presence of cardiac pacemaker Plan: Cardiac pacemaker in-situ for advanced AV block. Pacemaker is working well. Patient's pacer dependent in the ventricle. Follow-up echocardiogram to assess for LV systolic function, see below. Will continue monitor remotely. Will follow up in the clinic in 6 months time. (2) Paroxysmal atrial fibrillation: Code(s): I48.0 - Paroxysmal atrial fibrillation Plan: Paroxysmal atrial fibrillation which has remained suppressed. Doing well without any new symptoms. Loiza of atrial fibrillation low. No change in th erapy. Continue monitor by pacer telemetry. Continue full oral anticoagulation, currently on Xarelto 20 mg daily. Semi annual renal function test and annual CBC should be pursued. (3) Nonsustained ventricular tachycardia: Code(s): I47.29 - Other ventricular tachycardia Plan: Nonsustained ventricular tachycardia without any symptoms. Will obtain echocardiogram to assess LV systolic function. Further treatment based on the findings. Continues to have recurrent episodes will pursue further workup and beta-norma therapy. Will follow up in the clinic in 6 months time, sooner p.r.n.. Thank you for allowing me to partake in his care Orders: Orders Complete Blood Count no Diff Today I48.0 - Paroxysmal atrial fibrillation Basic Metabolic Panel Today I48.0 - Paroxysmal atrial fibrillation Coding Level of Care Code Est Pt Level 4 (53568) Diagnoses Cardiac pacemaker in situ Z95.0 Paroxysmal atrial fibrillation I48.0 Nonsustained ventricular tachycardia I47.29 CPT Codes Cardiac Device Check - Cardiac Device 2: 60053-[id number] Cardiac Device Check, pacemaker dual lead ([id number])
== END 2023-04-23 10:00 | disposition home or self-care (01) ==
PROVIDERS: PCP Internal Medicine; Visit Provider Internal Medicine Cardiovascular Disease
DX: I48.0 Paroxysmal atrial fibrillation (principal); I47.29 Other ventricular tachycardia; Z95.0 Presence of cardiac pacemaker
CPT/HCPCS: 93280; 99214

== ENCOUNTER 2023-05-02 11:12 | Outpatient (REF) | payer MEDICARE, SELFPAY ==
[2023-05-02 11:17] LABS: MANUAL DIFF FLAG NO
[2023-05-02 11:49] LABS: Appearance Urine Clear; Color Urine Yellow; Glucose Urine UA Negative (Negative); Leukocyte Esterase Urine Negative (Negative); Nitrite Urine Negative (Negative); PH 5.5 (5.0-9.0); Specific Gravity - Urine 1.015 (1.005-1.025); Urine Blood Negative (Negative); Urine Ketones Negative (Negative); Urine Protein Trace mg/dL (Neg-Trace)
[2023-05-02 11:51] LABS: Basophils Percent Auto 0.4 % (0-2); Eosinophils Absolute Auto 0.2 X10*3/uL (0.0-0.4); Eosinophils Percent Auto 2.5 % (0-4); Hematocrit 49.4 % (42.0-52.0); Hemoglobin 16.1 g/dl (14.0-18.0); Imm Gran Abs Auto 0.03 X10*3/uL (0.00-0.03); Imm Gran Pct Auto 0.4 % (0.0-0.4); Lymphocytes Absolute Auto 2.6 X10*3/uL (1.2-4.9); Lymphocytes Percent Auto 34.5 % (20-40); Mean Corpuscular HGB Conc 32.6 g/dl (31.0-36.0); Mean Corpuscular Hemoglobin 33.4 pg (27.0-33.0); Mean Corpuscular Volume 102.5 fL (80.0-98.0); Monocytes Absolute Auto 0.8 X10*3/uL (0.1-1.2); Monocytes Percent Auto 10.3 % (2-11); Neutrophils Percent Auto 51.9 % (45-73); Platelet Count 229 X10*3/uL (160-400); Red Blood Count 4.82 X10*6/uL (4.60-5.80); White Blood Count 7.7 X10*3/uL (4.8-10.8)
[2023-05-02 12:05] LABS: Bacteria Urine None Seen (None Seen); Hyaline Casts Urine 0-2 /LPF (0-2); RBC Urine 0-2 /HPF (0-2); Squamous Epithelial Cell Urine 0-2 /HPF (0-2); WBC Urine 0-5 /HPF (0-5)
[2023-05-02 12:22] LABS: Alanine Aminotransferase 20 U/L (0-40); Albumin Level 4.1 g/dL (3.5-5.0); Alkaline Phosphatase 88 U/L (39-117); Anion Gap 15 (12-20); Aspartate Amino Transferase 23 U/L (5-37); Bilirubin Total 0.5 mg/dL (0.0-1.0); Blood Urea Nitrogen 22 mg/dL (9-16); Calcium 9.6 mg/dL (8.4-10.2); Carbon Dioxide 25 mmol/L (22-29); Chloride 107 mmol/L (96-108); Cholesterol 202 mg/dL (<200); Estimated Glomerular Filt Rate > 60; Glucose Fasting 104 mg/dL (60-99); HDL Cholesterol 38 mg/dL (>40); LDL Cholesterol Calculated 137 mg/dL (<100); Potassium 4.3 mmol/L (3.3-5.1); Sodium 143 mmol/L (135-145); Total Protein 7.4 g/dL (6.5-8.0); Triglycerides 135 mg/dL (<150)
[2023-05-02 12:26] LABS: PSA,Total (Free>4and<10) 6.11 ng/mL (0.00-4.00)
[2023-05-02 12:31] LABS: Microalbum/Creatinine Ratio Ur 42.3 ug/mg cr (<30)
[2023-05-02 12:34] LABS: Estimated Average Glucose 120 mg/dL; Hemoglobin A1c % 5.8 % (<6.0)
[2023-05-06 09:49] LABS: Free Prostate Spec Ag 1.1 ng/mL; Percent Free Prostate Spec Ag 20 % (calc) (>25); Prostate Specific Ag Total 5.6 ng/mL (< OR = 4.0)
== END 2023-05-02 11:13 | disposition home or self-care (01) ==
LOC: HO.LNP 11:12
PROVIDERS: Visit Provider Internal Medicine
DX: Z00.00 Encounter for general adult medical examination without abnormal findings (principal); Z12.5 Encounter for screening for malignant neoplasm of prostate; R73.03 Prediabetes; E78.00 Pure hypercholesterolemia, unspecified; I10 Essential (primary) hypertension
CPT/HCPCS: 80053; 80061; 81001; 82043; 82570; 83036; 84153; 84154; 85025

== ENCOUNTER → 2023-05-27 14:23 | Outpatient (REF) | payer MEDICARE, SELFPAY ==
--- NOTE | 2023-05-27 14:25 | CA_ITS ---
Transthoracic Echocardiogram Patient (Last, First, Middle): Deven Escobar F Gender: Male Date of : 1940 Age: 82 Procedure Date: 05/27/2023 Procedure Type: Transthoracic Echocardiogram Location: OP Height: 167. cm Weight: 79.38 kg BSA: 1.88 m2 Heart Rate: 70 bpm BP: 170 / 75 mmHg Shop Clerk: LENA Referring MD: Dex Blair MD Director Of Institutional Research: Dex Blair MD Symptoms: I47.29 - Other ventricular tachycardia Study Quality: Fair ECG Rhythm: Sinus Conclusions: - 1. Normal LV ejection fraction of 60 65% with mild LVH with impaired relaxation filling pattern 2. Cardiac valvular Dopplers within normal limits with calcified aortic valve as well as mitral annular calcification 3. Normal RV systolic pressure 4. No pericardial effusion Findings Left Ventricle Normal left ventricular size and systolic function. There is mildly increased left ventricular wall thickness. The visually estimated ejection fraction is between 60-65%. Spectral Doppler is indicative of an impaired relaxation filling pattern. E/E prime ratio is between 8 and 15 consistent with indeterminate filling pressures. There is moderate septal asymmetric hypertrophy. Right Ventricle Normal right ventricular cavity size and systolic function. There is a pacemaker wire seen in the right ventricle. Atria The left atrium is likely dilated. Interatrial shunt cannot be excluded. The right atrium is normal in size. A pacemaker wire is identified in the right atrium. Aortic Valve The aortic valve was not well visualized. There is mild calcification of the aortic valve. There is no aortic valve stenosis. There is mild aortic valve regurgitation. Mitral Valve There is mild anterior and posterior mitral leaflet thickening. There is moderate mitral annular calcification. There is trace mitral valve regurgitation. There is no mitral valve stenosis. Pulmonic Valve The pulmonic valve was not well visualized. Tricuspid Valve Likely normal tricuspid valve structure and function. There is trace tricuspid valve regurgitation. The right ventricular systolic pressure is normal. The right ventricular systolic pressure is 25 mmHg. Normal right atrial pressure. There is no evidence of pulmonary hypertension. Great Vessels All visible segments of the aorta are normal in size. The pulmonary artery was not well visualized. Venous The inferior vena cava is normal in size and collapses greater than 50% with inspiration. Pericardium/Pleural There is no evidence of pericardial effusion. Prior Study Comparison No significant change compared to prior study dated: 07/27/2021. Measurements 2D Linear Measurements IVSd: 1.53 0.6-0.9/0.6-1.0 cm LVIDd: 2.53 3.9-5.3/4.2-5.9 cm LVIDd Index: 1.35 2.4-3.2/2.2-3.1 cm/m2 LVIDs: 2.14 2.0-3.6 cm LVPWd: 1.10 0.7-1.1 cm LA Diam: 3.70 2.7-3.8/3.0-4.0 cm LAIDs Index: 1.97 1.5-2.3 cm/m2 LV Mass: 126.04 67-162/88-224 g LV Mass Index: 67.04 43-95/49-115 g/m2 LVOT Diam: 2.00 3.0+(-)1.3 cm 2D Systolic Function EF 4C: 57.80 >55% EF 2C: 71.40 >55% EF BiP: 66.80 >55% Mitral Valve MV Pk E: 0.99 MV PK A: 1.42 MV Decel Time: 221.00 E/A: 0.70 E'Lateral: 5.22 E'Medial: 4.57 E/E' Med: 21.70 E/E' Lat: 19.00 PHT: 65.00 MVA PHT: 3.38 Decel Yolo: 4.49 Aortic Valve AoV Pk Servando: 1.42 AoV Mn Servando: 0.97 AoV VTI: 0.25 AoV Pk Grad: 8.00 Aov Mn Grad: 5.00 DYLAN Cont.VTI: 2.55 LVOT LVOT Pk Servando: 1.10 LVOT Mn Servando: 0.76 LVOT VTI: 0.20 LVOT Pk Grad: 5.00 LVOT Mn Grad: 3.00 LVOT Diam: 2.00 LVOT Area: 3.14 Diastolic Function MV Pk E: 0.99 MV Pk A: 1.42 E/A: 0.70 E'Medial: 4.57 E/E' Med: 21.70 E' Laterial: 5.22 E/E' Lat: 19.00 Right Ventricle TAPSE (mm): 18.70 TVS' Servando: 11.00 Tricuspid Valve TR Pk Servando: 2.37 TR Pk Grad: 22.00 RA Press: 3.00 RVSP: 25.00 Great Vessels Aorta Sinus of Valsalva: 3.40 2.0-3.5 cm Ao Asc: 3.50 2.1-3.4 cm Pulmonary Valve PV Pk Servando: 1.06 Peak PV Grad: 4.00 Updated in Other Vendor System with Status of Final Dex Blair MD electronically signed on 05/28/2023 1:08:44 PM with status of Final
== END ==
LOC: HO.CARD 14:23
PROVIDERS: PCP Internal Medicine; Visit Provider Internal Medicine Cardiovascular Disease
DX: I47.29 Other ventricular tachycardia (principal)
CPT/HCPCS: 93306

== ENCOUNTER → 2023-05-27 14:25 | Outpatient (BNV) | payer MEDICARE, SELFPAY | PROVIDERS: PCP Internal Medicine; Visit Provider Internal Medicine Cardiovascular Disease | DX: I35.1 Nonrheumatic aortic (valve) insufficiency (principal); I34.81 Nonrheumatic mitral (valve) annulus calcification | CPT/HCPCS: 93306 ==

== ENCOUNTER → 2023-06-30 23:59 | Outpatient (BNV) | payer MEDICARE, SELFPAY ==
--- NOTE | 2023-07-02 15:54 | MHC.OFFVIS ---
Intake Visit Reasons: Remote device check- Medtronic Allergies No Known Allergies [No Known Allergies*] Allergy (Verified 08/31/22 10:44) PFSH Medical History Paroxysmal atrial fibrillation Cardiac pacemaker in situ Complete heart block HTN (hypertension) Surgical History (Updated 04/23/23 @ 09:43 by Dex Blair MD) Pacemaker at end of battery life History of permanent cardiac pacemaker placement Hx of laminectomy Hx of hernia repair Family History Father No problems noted. Mother No problems noted. Social History Alcohol intake: never Patient Tobacco Use Status: Never used Tobacco Office Procedures Cardiac Device Check Cardiac Device Check Details: Remote pacemaker report generated 06/30/2023. Pacemaker function is adequate [id number] Cardiac Device Interrogation, pacemaker Procedure code (CPT) selection complete Assessment & Plan Assessment & Plan (1) Cardiac pacemaker in situ: Comment: implanted February 2015 you for advanced AV block. Medtronic dual-chamber pacemaker Code(s): Z95.0 - Presence of cardiac pacemaker Category: Medical Plan: See above Coding Level of Care Code Procedure Only Diagnoses Cardiac pacemaker in situ Z95.0 CPT Codes Cardiac Device Check - Cardiac Device 12: [id number] Cardiac Device Interrogation, pacemaker ([id number])
== END ==
PROVIDERS: PCP Internal Medicine; Visit Provider Internal Medicine Cardiovascular Disease
DX: I44.30 Unspecified atrioventricular block (principal); Z95.0 Presence of cardiac pacemaker
CPT/HCPCS: 93294

== ENCOUNTER → 2023-09-28 23:59 | Outpatient (BNV) | payer MEDICARE, SELFPAY ==
--- NOTE | 2023-10-01 12:38 | MHC.OFFVIS ---
Intake Visit Reasons: Remote device check- Medtronic Allergies No Known Allergies [No Known Allergies*] Allergy (Verified 08/31/22 10:44) PFSH Medical History Paroxysmal atrial fibrillation Cardiac pacemaker in situ Complete heart block HTN (hypertension) Surgical History (Updated 04/23/23 @ 09:43 by Dex Blair MD) Pacemaker at end of battery life History of permanent cardiac pacemaker placement Hx of laminectomy Hx of hernia repair Family History Father No problems noted. Mother No problems noted. Social History Alcohol intake: never Patient Tobacco Use Status: Never used Tobacco Office Procedures Cardiac Device Check Cardiac Device Check Details: Remote pacemaker report generated 09/28/2023. Pacemaker function is adequate [id number] Cardiac Device Interrogation, pacemaker Procedure code (CPT) selection complete Assessment & Plan Assessment & Plan (1) Cardiac pacemaker in situ: Comment: implanted February 2015 you for advanced AV block. Medtronic dual-chamber pacemaker Code(s): Z95.0 - Presence of cardiac pacemaker Category: Medical Plan: See above Coding Level of Care Code Procedure Only Diagnoses Cardiac pacemaker in situ Z95.0 CPT Codes Cardiac Device Check - Cardiac Device 12: [id number] Cardiac Device Interrogation, pacemaker ([id number])
== END ==
PROVIDERS: PCP Internal Medicine; Visit Provider Internal Medicine Cardiovascular Disease
DX: I44.30 Unspecified atrioventricular block (principal); Z95.0 Presence of cardiac pacemaker
CPT/HCPCS: 93294

== ENCOUNTER 2023-11-18 12:26 | Outpatient (REF) | payer MEDICARE, SELFPAY ==
[2023-11-18 14:06] LABS: Anion Gap 12 (12-20); Blood Urea Nitrogen 21 mg/dL (9-16); Calcium 9.5 mg/dL (8.4-10.2); Carbon Dioxide 26 mmol/L (22-29); Chloride 107 mmol/L (96-108); Estimated Glomerular Filt Rate > 60; Glucose Random 126 mg/dL (60-115); Sodium 141 mmol/L (135-145)
== END 2023-11-18 12:27 | disposition home or self-care (01) ==
LOC: HO.LAB 12:26
PROVIDERS: PCP Internal Medicine; Visit Provider Internal Medicine Cardiovascular Disease
DX: I48.0 Paroxysmal atrial fibrillation (principal); I10 Essential (primary) hypertension; Z95.0 Presence of cardiac pacemaker
CPT/HCPCS: 36415; 80048; 93005; 93280; 99212

== ENCOUNTER 2023-11-18 12:26 | Outpatient (AMB) | payer MEDICARE, SELFPAY ==
--- NOTE | 2023-11-18 12:30 | MHC.OFFVIS ---
Vital Signs 11/18/23 12:31 Height 5 ft 6 in Weight 171 lb 15.369 oz BMI 27.8 BP 130/76 Blood Pressure Location Lt brachial Position Sitting Pulse 71 Intake Visit Reasons: 6 mnth f/up pacer ck Intake Note: 6 month follow-up with ekg and Medtronic check feeling good Allergies No Known Allergies [No Known Allergies*] Allergy (Verified 08/31/22 10:44) Medication List - Last Reconciled 11/18/23 by Dex Blair MD albuterol sulfate 90 mcg/actuation 2 puffs PO Q6H PRN irbesartan-hydrochlorothiazide 150-12.5 mg 1 tab PO DAILY rivaroxaban (Xarelto) 20 mg PO DAILY HPI Comments Details: Deven comes for follow-up. He said continues to walk 4 miles a day. Denies any cardiac symptoms. No exertional chest pain or shortness of breath. Denies any orthopnea, PND, leg edema. No prolonged palpitation irregular heartbeat. No lightheadedness, syncope. No bleeding issues or neurologic events. Takes all his medications. 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 Mother No problems noted. Social History Alcohol intake: never Patient Tobacco Use Status: Never used Tobacco Review of Systems Const Denies chills, Denies fatigue, Denies fever(s), Denies frequent falls, Denies weakness, Denies weight gain and Denies weight loss ENT Denies dizziness Card Denies chest pain, Denies leg edema, Denies lightheadedness, Denies palpitations, Denies dyspnea, Denies dyspnea on exertion, Denies orthopnea and Denies other (loss of consciousness) Resp Denies cough, Denies dyspnea and Denies dyspnea on exertion GI Denies hematochezia and Denies change in stool character Musc Denies abnormal gait, Denies muscle weakness, Denies numbness, Denies radiating pain into limb and Denies tingling Neuro Denies abnormal gait, Denies dizziness, Denies frequent falls, Denies numbness, Denies tingling and Denies weakness Endo Denies fatigue and Denies palpitations Physical Exam Vital Signs: Last Vital Signs Pulse 71 11/18/23 12:31 BP 130/76 11/18/23 12:31 BMI result Body Mass Index 27.8 Const General: cooperative, comfortable, no acute distress, alert and awake Nutritional Appearance: overweight Orientation/consciousness: patient oriented x3 Limitations: no limitations Neck Neck: Yes trachea midline, Yes supple and Yes no JVD Resp Effort & Inspection: normal respiratory effort Auscultation: clear to auscultation bilaterally Cardio Jugular venous distension: no JVD Palpation: normal PMI Rate: regular rate Rhythm: regular rhythm Heart sounds: S1 normal heart sound present and S2 normal heart sound present GI Auscultation: normal bowel sounds Skin General skin exam: no rashes or lesions noted and ecchymosis Neuro General: patient oriented x3 and no focal motor deficits Extrem General: Yes no clubbing, cyanosis or edema Psych Appearance: grossly normal Office Procedures Cardiac Device Check Cardiac Device Check Details: Dual-chamber Medtronic pacemaker in place programmed in DDD at 60 beats per minute. Ventricular pacing 100% time. Few episodes of atrial fibrillation noted. Atrial ventricular pacing thresholds excellent, ventricular pacing thresholds reprogrammed to enhance battery life. Atrial ventricular pacing lead impedance is stable. Atrial sensing is excellent. Battery life is excellent. [id number]-[id number] Cardiac Device Check, pacemaker dual lead Procedure code (CPT) selection complete EKG Details: EKG shows normal sinus rhythm with ventricular pacing 94182-[id number], Complete Assessment & Plan Assessment & Plan (1) Paroxysmal atrial fibrillation: Code(s): I48.0 - Paroxysmal atrial fibrillation Category: Medical Plan: Paroxysmal atrial fibrillation without any obvious significant symptoms. No specific therapy recommended. Will continue monitor by pacer telemetry. Advised to call me with any new symptoms. Continue full oral anticoagulation, currently on Xarelto 20 mg daily. Semi annual renal function annual CBC should be pursued. (2) Cardiac pacemaker in situ: Comment: implanted February 2015 you for advanced AV block. Medtronic dual-chamber pacemaker Code(s): Z95.0 - Presence of cardiac pacemaker Category: Medical Plan: Cardiac pacemaker in-situ for advanced AV block. Pacemaker is working well at this point in time. Patient currently ventricularly pacer dependent. No symptoms related to it. No evidence of cardiomyopathy process. (3) HTN (hypertension): Code(s): I10 - Essential (primary) hypertension Category: Medical Plan: Hypertension which is currently well optimized on current therapy. Importance of good blood pressure control was discussed. Continue current therapy. Low-salt diet was discussed. Advised to monitor blood pressure at home maintain a log. Follow up in the clinic in 6 months time, sooner p.r.n.. Thank you me to partake in his care Orders: Orders Basic Metabolic Panel Today I48.0 - Paroxysmal atrial fibrillation CA echo transthoracic complete 6 Months I48.0 - Paroxysmal atrial fibrillation Coding Level of Care Code Est Pt Level 4 (18355) Diagnoses Paroxysmal atrial fibrillation I48.0 Cardiac pacemaker in situ Z95.0 HTN (hypertension) I10 CPT Codes Cardiac Device Check - Cardiac Device 2: 88261-[id number] Cardiac Device Check, pacemaker dual lead ([id number]) EKG - CPT: 22797-Rpuzlwqqmzvfwsmpo, Complete ([id number])
[2023-11-18 12:31] VITALS: BP 130/76; PULSE 71; BMI 27.8
== END 2023-11-18 12:54 | disposition home or self-care (01) ==
PROVIDERS: PCP Internal Medicine; Visit Provider Internal Medicine Cardiovascular Disease
DX: I48.0 Paroxysmal atrial fibrillation (principal); I10 Essential (primary) hypertension; Z95.0 Presence of cardiac pacemaker
CPT/HCPCS: 93010; 93280; 99214

== ENCOUNTER → 2023-12-27 23:59 | Outpatient (BNV) | payer MEDICARE, SELFPAY ==
--- NOTE | 2024-01-02 13:24 | A.OFFVIS_ITS ---
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 Mother No problems noted. Social History Alcohol intake: never Patient Tobacco Use Status: Never used Tobacco Office Procedures Cardiac Device Check Cardiac Device Check Details: Remote pacemaker report generated 12/27/2023. Ventricularly pacer dependent. Pacemaker function is adequate [id number] Cardiac Device Interrogation, pacemaker Procedure code (CPT) selection complete Assessment & Plan Assessment & Plan (1) Cardiac pacemaker in situ: Comment: implanted February 2015 you for advanced AV block. Medtronic dual-chamber p acemaker Code(s): Z95.0 - Presence of cardiac pacemaker Category: Medical Plan: See above Coding Level of Care Code Procedure Only Diagnoses Cardiac pacemaker in situ Z95.0 CPT Codes Cardiac Device Check - Cardiac Device 12: 27403-[id number] Cardiac Device Interrogation, pacemaker ([id number])
== END ==
PROVIDERS: PCP Internal Medicine; Visit Provider Internal Medicine Cardiovascular Disease
DX: I44.39 Other atrioventricular block (principal); Z95.0 Presence of cardiac pacemaker
CPT/HCPCS: 93294

== ENCOUNTER 2024-01-21 07:35 | Outpatient (REF) | payer MEDICARE, SELFPAY ==
--- NOTE | 2024-01-21 07:39 | EMG_ITS ---
FINDINGS: Bilateral median and ulnar motor and sensory studies were performed. Bilateral radial sensory and median and lateral antecubital brachial sensory studies were performed and paraspinal muscles were tested with a needle. IMPRESSION: Moderately severe bilateral median neuropathy across carpal tunnel. MD ORVILLE Ojeda/MENG / [id number]
== END 2024-01-21 07:36 | disposition home or self-care (01) ==
LOC: HO.NEURO 07:35
PROVIDERS: PCP Internal Medicine; Visit Provider Internal Medicine
DX: G56.03 Carpal tunnel syndrome, bilateral upper limbs (principal)
CPT/HCPCS: 95886; 95913

== ENCOUNTER 2024-02-21 14:24 | Outpatient (AMB) | payer MEDICARE, SELFPAY ==
--- NOTE | 2024-02-21 14:24 | MHC.OFFWIV ---
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 - The cough, which is productive of mucus, has persisted for five days without accompanying fever. - The patient has a negative history for asthma, COPD, smoking, and alcohol use. - Physical symptoms are limited to wheezing, with no ear pain, sinus pain, or headaches reported. - The patient does not experience shortness of breath or sinus pain. - Only patient residing at home with ailments. - Disrupted sleep patterns due to nocturnal coughing with Benadryl used as an aid. Physical Exam General: Cooperative, healthy appearing, comfortable and no acute distress Orientation/consciousness: Patient oriented x3 Limitations: No limitations Head: Normal to inspection Ears: Hearing grossly normal bilaterally, external ears normal and TM's normal bilaterally Nose: Normal external nose present, Normal nares present and No nasal discharge present Face and sinus: Normal facial exam and Yes sinuses nontender Mouth: Normal oral and palatal mucosa present and moist mucous membranes Throat: Yes tonsils normal, Yes uvula midline. Posterior oropharynx erythema Eyes: Appearance normal, both eyes and all related structures Neck: Normal visual inspection Respiratory: Clear to auscultation bilaterally. Normal respiratory effort, able to speak in complete sentences, Actively coughing, no respiratory distress, not tachypneic, no tripod positioning and no use of accessory muscles Cardiovascular: Regular rate and rhythm. 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 Mother No problems noted. Social History Alcohol intake: never Patient Tobacco Use Status: Never used Tobacco Review of Systems Const All systems reviewed & are unremarkable except as noted in HPI and below Physical Exam Vital Signs: Last Vital Signs Temp 97.7 F 02/21/24 14:26 Pulse 90 02/21/24 14:26 BP 150/70 H 02/21/24 14:26 Pulse Ox 96 02/21/24 14:26 Oxygen Delivery Method Room Air 02/21/24 14:26 BMI result Body Mass Index 27.6 Assessment & Plan Assessment & Plan (1) Lower respiratory infection (e.g., bronchitis, pneumonia, pneumonitis, pulmonitis): Code(s): J22 - Unspecified acute lower respiratory infection Plan: The patient's clinical presentation suggests either a viral infection or bacterial pneumonia as the underlying cause of his symptoms. A chest x-ray has been ordered to evaluate for pneumonia, and diagnostic nasal swabs were collected to rule out viral etiologies, including influenza, COVID-19, and RSV, with results expected by the next day. If pneumonia is confirmed, antibiotic therapy with Augmentin and a Z-Kanu is planned. To manage symptoms, Tessalon Perles for night-time cough and an expectorant during the day have been recommended. Instructions were given regarding the location of the chest x-ray and future steps regarding medication adjustments based on x-ray findings. Patient was informed and verbally consented to the use of an ambient scribe for clinic note documentation during this visit Orders: Orders XR chest 2V Today R05.9 - Cough, unspecified SARS-CoV2/FLU/RSV Today J22 - Unspecified acute lower respiratory infection Medications: New benzonatate 200 mg PO TID PRN 14 caps 0RF cough Coding Level of Care Code New Pt Level 4 (74445) Diagnoses Lower respiratory infection (e.g., bronchitis, pneumonia, pneumonitis, pulmonitis) J22
[2024-02-21 14:26] VITALS: BP 150/70; PULSE 90; TEMP 36.5; O2SAT 96; BMI 27.6
--- OUTSIDE RECORDS SUMMARY | 2024-02-21 15:49 | XMS_ITS ---
Author Organization Samuel Hassan MD Address [address] [place] [phone] Care Team Providers Care Materials Assistant Name Role Phone Samuel Hassan Primary Care Provider REASON FOR VISIT ? 3 month appt Encounters Encounter Location Date Provider Diagnosis Samuel Hassan MD [address] [facility] [address] [place] [id number] 11/07/2023 Samuel Hassan PLAN OF TREATMENT Next Appt Details Provider Name:Samuel Knight ier, 05/05/2024 07:30:00 AM, [address] [place] [address], [address] [place], [phone], Provider Name:Samuel Knight ier, 05/12/2024 10:30:00 AM, [address] [place] [address], [address] [place], [phone],
--- OUTSIDE RECORDS SUMMARY | 2024-02-21 15:49 | XMS_ITS | Patient Health Record ---
Author Organization Samuel Hassan MD Address [address] [place] [id number] Care Team Providers Care Operations And Intelligence Assistant Name Role Phone Floridalma Hassann Primary Care Provider [phone] ALLERGIES No Known Allergies RESULTS Component Value Reference Range Notes Complete Blood Count no Diff Reviewed date:04/23/2023 12:42:07 PM Interpretation: Performing Lab:[facility], [address] [place] [phone] Notes/Report: White Blood Count 9.4 4.8-10.8 X10*3/uL Red Blood Count 4.84 4.60-5.80 X10*6/uL Hemoglobin 16.2 14.0-18.0 g/dl Hematocrit 49.0 42.0-52.0 % Mean Corpuscular Volume 101.2 80.0-98.0 fL Mean Corpuscular Hemoglobin 33.5 27.0-33.0 pg Mean Corpuscular HGB Conc 33.1 31.0-36.0 g/dl Red Cell Distribution Width 13.6 11.0-16.0 % Platelet Count 222 160-400 X10*3/uL Mean Platelet Volume 10.0 9.4-12.4 fL NRBC Pct Auto 0.0 0.0-0.2 /100WBC NRBC Abs Auto 0.000 0.0-0.012 X10*3/uL Basic Metabolic Panel Reviewed date:04/23/2023 12:39:51 PM Interpretation: Performing Lab:[facility], [address] [place] [phone] Notes/Report: Sodium 142 135-145 mmol/L Potassium 4.4 3.3-5.1 mmol/L Slight Hemoly sis Chloride 103 96-108 mmol/L Carbon Dioxide 30 22-29 mmol/L Anion Gap 13 12-20 Blood Urea Nitrogen 19 9-16 mg/dL Creatinine 1.09 0.5-1.4 mg/dL Estimated Glomerular Filt Rate > 60 NOTE: For -Malian individuals, multiply the result by 1.210. Chronic Kidney Disease: Estimated GFR < 60 mL/min/1.73m2 Severe Kidney Disease: Estimated GFR < 15 mL/min/1.73m2 Glucose Random 99 60-115 mg/dL Calcium 9.8 8.4-10.2 mg/dL Complete Blood Count Auto Di ff Reviewed date:05/02/2023 12:25:00 PM Interpretation: Performing Lab:[facility], [address] [place] [phone] Notes/Report: White Blood Count 7.7 4.8-10.8 X10*3/uL Red Blood Count 4.82 4.60-5.80 X10*6/uL Hemoglobin 16.1 14.0-18.0 g/dl Hematocrit 49.4 42.0-52.0 % Mean Corpuscular Volume 102.5 80.0-98.0 fL Mean Corpuscular Hemoglobin 33.4 27.0-33.0 pg Mean Corpuscular HGB Conc 32.6 31.0-36.0 g/dl Red Cell Distribution Width 14.0 11.0-16.0 % Platelet Count 229 160-400 X10*3/uL Mean Platelet Volume 10.0 9.4-12.4 fL Neutrophils Percent Auto 51.9 45-73 % Imm Gran Pct Auto 0.4 0.0-0.4 % Lymphocytes Percent Auto 34.5 20-40 % Monocytes Percent Auto 10.3 2-11 % Eosinophils Percent Auto 2.5 0-4 % Basophils Percent Auto 0.4 0-2 % NRBC Pct Auto 0.0 0.0-0.2 /100WBC Neutrophils Absolute Auto 4.0 2.0-8.3 x10*3/u L Imm Gran Abs Auto 0.03 0.00-0.03 X10*3/uL Lymphocytes Absolute Auto 2.6 1.2-4.9 X10*3/u L Monocytes Absolute Auto 0.8 0.1-1.2 X10*3/uL Eosinophils Absolute Auto 0.2 0.0-0.4 X10*3/u L Basophils Absolute Auto 0.0 0.0-0.2 X10*3/uL NRBC Abs Auto 0.000 0.0-0.012 X10*3/uL Comprehensive Jet. Panel Fa st Reviewed date:05/02/2023 12:26:32 PM Interpretation: Performing Lab:[facility], [address] [place] [phone] Notes/Report: Sodium 143 135-145 mmol/L Potassium 4.3 3.3-5.1 mmol/L Chloride 107 96-108 mmol/L Carbon Dioxide 25 22-29 mmol/L Anion Gap 15 12-20 Blood Urea Nitrogen 22 9-16 mg/dL Creatinine 1.10 0.5-1.4 mg/dL Estimated Glomerular Filt Rate > 60 NOTE: For -Malian individuals, multiply the result by 1.210. Chronic Kidney Disease: Estimated GFR < 60 mL/min/1.73m2 Severe Kidney Disease: Estimated GFR < 15 mL/min/1.73m2 Glucose Fasting 104 60-99 mg/dL A fasting glucose from 100-125 mg/dl is considered impaired (pre-diabetes). Calcium 9.6 8.4-10.2 mg/dL Bilirubin Total 0.5 0.0-1.0 mg/dL Aspartate Amino Transferase 23 5-37 U/L Alanine Aminotransferase 20 0-40 U/L Total Protein 7.4 6.5-8.0 g/dL Albumin Level 4.1 3.5-5.0 g/dL Alkaline Phosphatase 88 39-117 U/L Lipid Panel Reviewed date:05/02/2023 12:25:18 PM Interpretation: Performing Lab:[address] [phone] Notes/Report: Triglycerides 135 <150 mg/dL Desirable Triglyceride: less than 150 mg/dL Borderline High Triglyceride 150-199 mg/dL High Triglyceride: 200-499 mg/dL Very High Triglyceride: greater than or equal to 5OO mg/dL Cholesterol 202 <200 mg/dL Desirable Cholesterol: less than 200 mg/dL Borderline High Cholesterol: 200-239 mg/dL High Cholesterol: greater than 239 mg/dL LDL Cholesterol Calculated 137 <100 mg/dL Desirable LDL: less than 100 mg/dL Near Optimal/Above Optimal LDL: 110-129 mg/dL Borderline High LDL: 130-159 mg/dL High LDL: 160-189 mg/dL Very High LDL: greater than or equal to 190 mg/dL HDL Cholesterol 38 >40 mg/dL Desirable HDL: greater than 40 mg/dL Note: This HDL assay may give artificially low results in patients with liver disease. PSA,Total (Free>4and<10) Reviewed date:05/10/2023 07:21:45 AM Interpretation:see back 05-09-23 Performing Lab:[address] [phone] Notes/Report: PSA,Total (Free>4and<10) 6.11 0.00-4.00 ng/mL PSA methodology: Pérez Alinity i Chemiluminescent Microparticle Immunoassay (CMIA) Microalbumin, Random Reviewed date:05/02/2023 12:48:22 PM Interpretation: Performing Lab:[address] [phone] Notes/Report: Creatinine Urine 96.90 Microalbumin Urine 41.0 Microalbum/Creatinine Ratio Ur 42.3 <30 ug/mg cr Albumin/Creatinine Ratio Reference Ranges: Normal: < 30 ug/mg creatinine Microalbuminuria: 30 - 300 ug/mg creatinine Clinical Albuminuria: > 300 ug/mg creatinine Hemoglobin A1c Reviewed date:05/02/2023 12:48:49 PM Interpretation: Performing Lab:[address] [phone] Notes/Report: Hemoglobin A1c % 5.8 <6.0 % Hemoglobin A1C Reference Range Adults: 4.8 - 6.0 % Non diabetic: < 6.0 % Goal: < 7.0 % Additional Action Suggested: > 8.0 % Note: Hemoglobin A1c results are invalid for patients with abnormal amounts of HbF. Blood transfusions may impact the HbA1c concentration in the patient sample. Estimated Average Glucose 120 eAG = Estimated average glucose which is %A1C expressed as average glucose, using the formula of the N2F-Zxfezcn Average Glucose study (ADAG), Diabetes Care, Vol.31,#8, 2007 UA ClnCatch+Micro w/rflx Cul t Reviewed date:05/05/2023 01:36:59 PM Interpretation: Performing Lab:[address] [phone] Notes/Report: Urine, Clean Catch Color Urine Yellow Appearance Urine Clear PH 5.5 5.0-9.0 Glucose Urine UA Negative Negative mg/dL Urine Blood Negative Negative Specific Sumner - Urine 1.015 1.005-1.025 Urine Protein Trace Neg-Trace mg/dL Urine Ketones Negative Negative mg/dL Nitrite Urine Negative Negative Leukocyte Esterase Urine Negative Negative RBC Urine 0-2 0-2 /HPF WBC Urine 0-5 0-5 /HPF Squamous Epithelial Cell Urine 0-2 0-2 /HPF Bacteria Urine None Seen None Seen Hyaline Casts Urine 0-2 0-2 /LPF PSA Free and Total Reviewed date:05/06/2023 12:43:36 PM Interpretation: Performing Lab:[address] [phone] Notes/Report: Prostate Specific Ag Total 5.6 < OR = 4.0 ng/ mL Percent Free Prostate Spec Ag 20 >25 % (calc ) PSA(ng/mL) Free PSA(%) Estimated(x) Probability of Cancer(as%) 0-2.5 (*) Approx. 1 2.6-4.0(1) 0-27(2) 24(3) 4.1-10(4) 0-10 56 11-15 28 16-20 20 21-25 16 >or =26 8 >10(+) N/A >50 References:(1)Anika et al.:Urology 60: 469-474 (2002) (2)Anika et al.:J.Urol 168: 922-925 (2001) Free PSA(%) Sensitivity(%) Specificity(%) < or = 25 85 19 < or = 30 93 9 (3)Anika et al.:YEYO 277: 6863-3192 (1996) (4)Catalona et al.:YEYO 279: 2371-8203 (1997) (x)These estimates vary with age, ethnicity, family history and DENNIS results. (*)The diagnostic usefulness of % Free PSA has not been established in patients with total PSA below 2.6 ng/mL (+)In men with PSA above 10 ng/mL, prostate cancer risk is determined by total PSA alone. The Total PSA value from this assay system is standardized against the equimolar PSA standard. The test result will be approximately 20% higher when compared to the WHO-standardized Total PSA (Siemens assay). Comparison of serial PSA results should be interpreted with this fact in mind. PSA was performed using the Julio Mercedez Immunoassay method. Values obtained from different assay methods cannot be used interchangeably. PSA levels, regardless of value, should not be interpreted as absolute evidence of the presence or absence of disease. THIS TEST WAS PERFORMED AT: [facility] [address] [address] JESSICA DE SANTIAGO MD Free Prostate Spec Ag 1.1 Basic Metabolic Panel Reviewed date:11/18/2023 05:51:09 PM Interpretation: Performing Lab:[facility], [address] [place] [phone] Notes/Report: Sodium 141 135-145 mmol/L Potassium 4.0 3.3-5.1 mmol/L Chloride 107 96-108 mmol/L Carbon Dioxide 26 22-29 mmol/L Anion Gap 12 12-20 Blood Urea Nitrogen 21 9-16 mg/dL Creatinine 1.11 0.5-1.4 mg/dL Estimated Glomerular Filt Rate > 60 NOTE: For -Malian individuals, multiply the result by 1.210. Chronic Kidney Disease: Estimated GFR < 60 mL/min/1.73m2 Severe Kidney Disease: Estimated GFR < 15 mL/min/1.73m2 Glucose Random 126 60-115 mg/dL Calcium 9.5 8.4-10.2 mg/dL REASON FOR REFERRAL Reason bilateral carpal kelli juana Diagnosis 1 Bilateral carpal kelli juana syndrome (G56.03) Referral Organization Samuel Hassan MD Referring Provider First Name Samuel Referring Provider Last Name Sonya Referring Provider Speciality Internal M edicine Referred Provider Domitila Almeida Referred Provider Specialty Hand Surgery General Notes Kirstin Conde 12:58:29 PM EST > info faxed , Kirstin Conde 01/31/2024 11:30:38 AM EST > was told Dr. Almieda is revewing referral , Kirstin Conde 02/06/2024 01:13:57 PM EST > patient is aware of appt Referral Priority Routine Referral Appointment Date 03/17/2024 MEDICATIONS Medication SIG (Take, Route, Frequency, Duration) Notes Start Date End Date Status Xarelto 20 MG 1 tablet with food Orally Once a day Active Irbesartan-hydroCHLOROth iazide 150-12.5 MG TAKE 1 TABLET BY MOUTH EVERY DAY for 90 Active Diovan HCT 160-12.5 MG 1 tablet Orally O nce a day for 90 days 10/13/2012 Not-Taking Viagra 100 MG 1/2 tablet as needed Orally Once a day for 90 days 04/23/2019 Not-Taking Albuterol Sulfate HFA 108 (90 Base) MCG/ACT INHALE 2 PUFFS BY MOUTH EVERY 6 HOURS NEEDED Inhalation every 4 hrs for 30 days Active IMMUNIZATIONS Vaccine Route Administration Date Status Comme nts Flu Vaccine IM Intramuscular 10/31/2010 Administered Flu Vaccine IM Intramuscular 10/29/2011 Administered TDaP IM Intramuscular 11/05/2011 Administered Shingles IM Intramuscular 11/13/2011 Administered Flu Vaccine IM Intramuscular 10/30/2012 Administered PPSV23 (Pnemovax) IM Intramuscular 12/11/2012 Administered Fluarix Quadrivalent IM Intramuscular 10/27/2013 Administe red Flu Vaccine IM Intramuscular 11/02/2014 Administered Prevnar 13 IM Intramuscular 03/04/2015 Administered Fluarix Quadrivalent IM Intramuscular 10/31/2015 Administe red Fluarix Quadrivalent IM Intramuscular 11/23/2016 Administe red Fluarix Quadrivalent IM Intramuscular 11/08/2017 Administe red PPSV23 (Pnemovax) IM Intramuscular 10/07/2018 Administered Fluarix Quadrivalent IM Intramuscular 10/21/2018 Administe red Influenza High Dose IM Intramuscular 10/23/2019 Administer ed Covid Vaccine Unknown 03/25/2020 Administered Pfizer Covid Vaccine Unknown 05/13/2020 Administered Pfizer Influenza High Dose IM Intramuscular 10/31/2020 Administer ed SARS-COV-2 Pfizer Unknown 12/06/2020 Administered Influenza High Dose IM Intramuscular 10/27/2021 Administer ed SARS-COV-2 Pfizer Unknown 07/07/2021 Administered SARS-COV-2 Pfizer Unknown 11/12/2021 Administered Influenza High Dose IM Intramuscular 11/08/2022 Administer ed Influenza High Dose IM Intramuscular 11/07/2023 Administer ed Flu Vaccine Unknown 10/27/2013 Pending SOCIAL HISTORY Tobacco Use: Social History Observation Description Date Details (start date - stop date) Never Smoker NA - NA Sex Assigned At : Social History Observation Description Sex Assigned At Unknown Tobacco Use/Smoking Question Answer Notes Patient is a nonsmoker Additional Findings: Tobacco Non-User Cu rrent non-smoker, currently using no form of tobacco Alcohol Screen Question Answer Notes Did you have a drink containing alcohol in the p ast year? No Points 0 Interpretation Negative PROBLEMS Problem Type ICD Code Onset Dates Problem Status W/U Status Risk SNOMED Code Notes Problem Elevated BUN (R79.9) Active confirmed 154310151 Problem Other male erectile dysfunction (N52.8) Active confirmed 700560039 Problem Essential hypertension (I10) Active confirmed 37921393 Problem Prediabetes (R73.09) Active confirmed 8940451 Problem First degree heart block (I44.0) Active confirmed 880995961 Problem Elevated LDL cholesterol level (E78.00) Active confirmed 395552653 Problem Bilateral carpal tunnel syndrome (G56.03) Active confirmed 23781765778408904 Problem Mild intermittent asthmatic bronchitis with acute exacerbation (J45.21) Active confirmed 002791946 Problem 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) Active confirmed 472783715 Problem Chest rales (R09.89) Active confirmed 50079163 Problem Acute idiopathic gout involving toe, 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) Active confirmed 93561489 Problem Chronic a-fib (I48.20) Active confirmed 961811014 VITAL SIGNS Blood pressure diastolic 58 mm Hg 01/03/2024 Height 66.25 in 01/03/2024 Blood pressure systolic 122 mm Hg 01/03/2024 Weight 171 lbs 01/03/2024 BMI 27.39 kg/m2 01/03/2024 Encounters Encounter Location Date Provider Diagnosis Samuel Hassan MD [address] [place] [id number] 05/09/2023 Samuel Hassan Essential hypertension I10 ; Elevated LDL cholesterol level E78.00 ; History of pacemaker Z95.0 and Encounter for general adult medical examination without abnormal findings Z00.00 Samuel Hassan MD [address] [place] [id number] 01/03/2024 Samuel Hassan Bilateral carpal tunnel syndrome G56.03 Samuel Hassan MD [address] [place] [id number] 05/02/2023 Samuel Hassan Blood tests for routine general physical examination Z00.00 ; Prediabetes R73.09 ; Essential hypertension I10 and Elevated LDL cholesterol level E78.00 Samuel Hassan MD [address] [place] [id number] 11/07/2023 Samuel Hassan Essential hypertension I10 ; First degree heart block I44.0 and Encounter for immunization Z23 Samuel Hassan MD [address] [place] [id number] 11/07/2023 Samuel Hassan ASSESSMENTS Encounter Date Diagnosis Assessment Notes Treatment Notes Treatment Clinical Notes 05/09/2023 Essential hypertension (ICD-10 - I10) doing welll 05/09/2023 Elevated LDL cholesterol level (ICD-10 - E78.00) not high enough 01/03/2024 Bilateral carpal tunnel syndrome (ICD-10 - G56.03) pendingdiagnostic testing , order faxed to [facility] [place] 05/02/2023 Prediabetes (ICD-10 - R73.09) 05/02/2023 Blood tests for routine general physical examination (ICD-10 - Z00.00) 11/07/2023 Essential hypertension (ICD-10 - I10) doing well on meds, stable, will contiue current regiment 11/07/2023 First degree heart block (ICD-10 - I44.0) doing well with pacer, will continue to follow [facility] cardiology 05/09/2023 History of pacemaker (ICD-10 - Z95.0) had to have lead replaced 05/02/2023 Essential hypertension (ICD-10 - I10) 11/07/2023 Encounter for immunization (ICD-10 - Z23) flu vaccine administered 05/09/2023 Encounter for general adult medical examination without abnormal findings (ICD-10 - Z00.00) Labs reviewed and discussed with patient, 05/02/2023 Elevated LDL cholesterol level (ICD-10 - E78.00) PLAN OF TREATMENT Pending Test Test Name Order Date Electrocardiogram (EKG) 03/04/2015 Electrocardiogram (EKG) 04/10/2018 XR CHEST 2 VIEW PA & LAT 08/14/2012 XR CHEST 2 VIEW PA & LAT 07/02/2013 EMG 01/03/2024 Next Appt Details Provider Name:Samuel Arguetaelizabeth ier, 05/05/2024 07:30:00 AM, [address] [place] [address], [facility], [place], [place], [phone], Provider Name:Samuel Knight ier, 05/12/2024 10:30:00 AM, [address] [place] [address], [place] [address], [place], [place], [phone], Insurance Providers Payer Name Payer Address Payer Phone Subscriber Number Group Number Insured Name Patient Relationship to Insured Coverage Start Date Coverage End Date [employer] [address]AN [address] [place] [phone] [id number] Deven Escobar Self - patient is the insured [employer] [address] [place] [address] [id number] Deven Escobar Self - patient is the insured MEDICAL (GENERAL) HISTORY Medical History History ICD Code basal cell carcinoma kidney stones colonoscopy 2005 due in 10 y ears; colonoscopy done 08/26/15 w/Dr. Shah (no further testing required) Holter Monitor - 05/30/2012 no further psa 07/05/2017 crcl 73 Surgical History Surgery Date(Month/Year) discectomy
--- OUTSIDE RECORDS SUMMARY | 2024-02-21 15:49 | XMS_ITS ---
Author Organization Samuel Hassan MD Address [address] [place], [place] [phone] Care Team Providers Care Advertising Account Manager Name Role Phone Samuel Hassan Primary Care Provider [phone] ALLERGIES No Known Allergies REASON FOR VISIT 6 MO F/U MEDICATIONS Medication SIG (Take, Route, Frequency, Duration) Notes Start Date End Date Status Albuterol Sulfate HFA 108 (90 Base) MCG/ACT INHALE 2 PUFFS BY MOUTH EVERY 6 HOURS NEEDED Inhalation every 4 hrs for 30 days Active Viagra 100 MG 1/2 tablet as needed Orally Once a day for 90 days 04/23/2019 Not-Taking Irbesartan-hydroCHLOROth iazide 150-12.5 MG TAKE 1 TABLET BY MOUTH EVERY DAY for 90 Active Xarelto 20 MG 1 tablet with food Orally Once a day Active Diovan HCT 160-12.5 MG 1 tablet Orally O nce a day for 90 days 10/13/2012 Not-Taking IMMUNIZATIONS Vaccine Route Administration Date Status Comme nts Influenza High Dose IM Intramuscular 11/07/2023 Administer ed VITAL SIGNS BMI 27.39 kg/m2 11/07/2023 Blood pressure systolic 142 mm Hg 11/07/19 24 Blood pressure diastolic 60 mm Hg 024 Height 66.25 in 11/07/2023 Weight 171 lbs 11/07/2023 Encounters Encounter Location Date Provider Diagnosis Samuel Hassan MD [address] [place] [address] [place] [id number] 11/07/2023 Samuel Hassan Essential hypertension I10 ; First degree heart block I44.0 and Encounter for immunization Z23 ASSESSMENTS Encounter Date Diagnosis Assessment Notes Treatment Notes Treatment Clinical Notes 11/07/2023 Essential hypertension (ICD-10 - I10) doing well on meds, stable, will contiue current regiment 11/07/2023 First degree heart block (ICD-10 - I44.0) doing well with pacer, will continue to follow [facility] cardiology 11/07/2023 Encounter for immunization (ICD-10 - Z23) flu vaccine administered PLAN OF TREATMENT Treatment Notes Assessment Notes Essential hypertension doing well on med s, stable, will contiue current regiment First degree heart block doing well with pacer, will continue to follow [facility] cardiology Encounter for immunization flu vaccine a dministered Next Appt Details Follow Up: 3 Months, Reason: Provider Name:Samuel wallace, 05/05/2024 07:30:00 AM, [address] [place] [address], [address], [phone], Provider Name:Samuel wallace, 05/12/2024 10:30:00 AM, [address] [place] [address], [address], [phone], Progress Notes * Examination Category Sub-Category Detail Notes General Examination GENERAL APPEARANCE: alert, w ell hydrated, in no distress HEAD: normocephalic HEART: no murmurs, rubs, ga llops, regular rate and rhythm LUNGS: no wheezes, rales, r honchi, good air movement, clear to auscultation bilaterally SKIN: good turgor
--- OUTSIDE RECORDS SUMMARY | 2024-02-21 15:49 | XMS_ITS ---
Author Organization Samuel Hassan MD Address [address] [place], [place] [id number] Care Team Providers Care Diesel Service Apprentice Name Role Phone aSmuel Hassan Primary Care Provider ALLERGIES No Known Allergies REASON FOR VISIT NUMB FINGERTIPS BOTH HANDS MEDICATIONS Medication SIG (Take, Route, Frequency, Duration) Notes Start Date End Date Status Irbesartan-hydroCHLOROth iazide 150-12.5 MG TAKE 1 TABLET [...] every 4 hrs for 30 days Active PROBLEMS Problem Type ICD Code Onset Dates Problem Status W/U Status Risk SNOMED Code Notes Problem Bilateral carpal tunnel syndrome (G56.03) Active confirmed [id number] VITAL SIGNS BMI 27.39 kg/m2 01/03/2024 Blood pressure systolic 122 mm Hg 01/03/20 24 Blood pressure diastolic 58 mm Hg 024 Height 66.25 in 01/03/2024 Weight 171 lbs 01/03/2024 Encounters Encounter Location Date Provider Diagnosis Samuel Hassan MD [address] [place] [address] [place] [id number] 01/03/2024 Samuel Hassan Bilateral carpal tunnel syndrome G56.03 ASSESSMENTS Encounter Date Diagnosis Assessment Notes Treatment Notes Treatment Clinical Notes 01/03/2024 Bilateral carpal tunnel syndrome (ICD-10 - G56.03) pendingdiagnostic testing , order faxed to [facility] dept PLAN OF TREATMENT Treatment Notes Assessment Notes Bilateral carpal tunnel syndrome pending diagnostic testing , order faxed to [facility] dept Pending Test Test Name Order Date EMG 01/03/2024 Next Appt Details Follow Up: after nerve condu ction, Reason: Provider Name:Samuel wallace, 05/05/2024 07:30:00 AM, [address] [place] [address], [place] [address], [place], [place], [phone], Provider Name:Samuel wallace, 05/12/2024 10:30:00 AM, [address] [place] [address], [address], [phone], Progress Notes * Examination Category Sub-Category Detail Notes General Examination GENERAL APPEARANCE: well dev eloped, well nourished HEAD: normocephalic MUSCULOSKELETAL: no symptoms with tap ping on wrists or putting backs of hands together
== END 2024-02-21 15:52 | disposition home or self-care (01) ==
PROVIDERS: PCP Internal Medicine; Visit Provider Physician Assistant
DX: J22 Unspecified acute lower respiratory infection (principal)

== ENCOUNTER 2024-02-21 14:24 | Outpatient (REF) | payer MEDICARE, SELFPAY | END 2024-02-21 14:25 | disposition home or self-care (01) | LOC: HO.LAB 14:24 | PROVIDERS: PCP Internal Medicine | DX: R05.9 Cough, unspecified (principal) | CPT/HCPCS: 99202 ==

== ENCOUNTER 2024-02-21 14:59 | Outpatient (REF) | payer MEDICARE, SELFPAY ==
--- NOTE | ~2024-02-21 | XR_ITS ---
CLINICAL HISTORY: R05.9 - Cough, unspecified 2 view chest x-ray Comparison: None Findings: No consolidation, pleural effusion or pneumothorax. Heart size is normal. Biventricular cardiac pacemaker. No acute fracture. IMPRESSION: 1. No acute findings. This document has been electronically signed by: Ashley Dillon DO on 02/21/2024 15:54:48
[2024-02-21 18:00] LABS: Influenza A PCR NEGATIVE (Negative); Influenza B PCR NEGATIVE (Negative); Resp Syncy Virus RNA Qual PCR NEGATIVE (Negative); SARS COV2 PCR INHOUSE NEGATIVE (Negative)
== END 2024-02-21 15:00 | disposition home or self-care (01) ==
LOC: HO.HMGCX 14:59
PROVIDERS: PCP Internal Medicine; Visit Provider Physician Assistant
DX: R05.9 Cough, unspecified (principal); J22 Unspecified acute lower respiratory infection
CPT/HCPCS: 0241U; 71046; 99202

== ENCOUNTER → 2024-02-21 15:03 | Outpatient (BNV) | payer MEDICARE, SELFPAY | PROVIDERS: PCP Internal Medicine; Visit Provider Radiology Diagnostic Radiology | DX: R05.9 Cough, unspecified (principal) | CPT/HCPCS: 71046 ==

== ENCOUNTER → 2024-03-26 23:59 | Outpatient (BNV) | payer MEDICARE, SELFPAY ==
--- NOTE | 2024-03-30 11:03 | MHC.OFFVIS ---
Intake Visit Reasons: Remote device check- Medtronic Allergies No Known Allergies [No Known Allergies*] Allergy (Verified 02/21/24 14:26) PFSH Medical History Paroxysmal atrial fibrillation Cardiac pacemaker in situ Complete heart block HTN (hypertension) Surgical History Pacemaker at end of battery life History of permanent cardiac pacemaker placement Hx of laminectomy Hx of hernia repair Family History Father No problems noted. Mother No problems noted. Social History Alcohol intake: never Patient Tobacco Use Status: Never used Tobacco Office Procedures Cardiac Device Check Cardiac Device Check Details: Remote pacemaker report generated 03/26/2024. Pacemaker function is adequate. Ventricular pacing 100% of the time [id number] Cardiac Device Interrogation, pacemaker Procedure code (CPT) selection complete Assessment & Plan Assessment & Plan (1) Cardiac pacemaker in situ: Comment: implanted February 2015 you for advanced AV block. Medtronic dual-chamber pacemaker Code(s): Z95.0 - Presence of cardiac pacemaker Category: Medical Plan: See above Coding Level of Care Code Procedure Only Diagnoses Cardiac pacemaker in situ Z95.0 CPT Codes Cardiac Device Check - Cardiac Device 12: [id number] Cardiac Device Interrogation, pacemaker ([id number])
== END ==
PROVIDERS: PCP Internal Medicine; Visit Provider Internal Medicine Cardiovascular Disease
DX: I44.30 Unspecified atrioventricular block (principal); Z95.0 Presence of cardiac pacemaker
CPT/HCPCS: 93294

== ENCOUNTER 2024-04-14 10:31 | Outpatient (AMB) | payer MEDICARE, SELFPAY ==
--- NOTE | 2024-04-14 10:37 | MHC.OFFVIS ---
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 Left is worse than right. EMG done on 01/21/24. Patient reports that his symptoms of numbness, tingling and pain has been present for about a year but has recently worsened. IMPRESSION: Moderately severe bilateral median neuropathy across carpal tunnel. 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 Left is worse than right. EMG done on 01/21/24. Patient reports that his symptoms of numbness, tingling and pain has been present for about a year but has recently worsened. IMPRESSION: Moderately severe bilateral median neuropathy across carpal tunnel. [facility] Medical History Paroxysmal atrial fibrillation Cardiac pacemaker in situ Complete heart block HTN (hypertension) Surgical History Pacemaker at end of battery life History of permanent cardiac pacemaker placement Hx of laminectomy Hx of hernia repair Family History Father No problems noted. Mother No problems noted. Social History Alcohol intake: never Patient Tobacco Use Status: Never used Tobacco Review of Systems Const All systems reviewed & are unremarkable except as noted in HPI and below Physical Exam Extrem Other: Neuro: Normal sensation of the tips of all digits in the office today No thenar or intrinsic wasting. Good APB muscle firing and good finger cross. Vascular: Capillary refill brisk. ROM: Patient can make a fist and extend all their digits. Skin: No lacerations or abrasions noted. General: No ecchymosis. No erythema or evidence of infection. Assessment & Plan Assessment & Plan (1) Bilateral carpal tunnel syndrome: Code(s): G56.03 - Carpal tunnel syndrome, bilateral upper limbs Category: Medical Plan 1. Carpal tunnel syndrome, left Symptoms intermittent, daily, worse at night I educated the patient about the condition. I discussed both operative and nonoperative treatment options. The patient would like to proceed with surgery. The risks and benefits of operative treatment were discussed with the patient and the patient wishes to proceed with surgery. These risks include, but are not limited to, risk of damage to blood vessels, nerves, tendons, infection, recurrence, incomplete relief of preoperative symptoms, persistent pain, possible need for further surgery, and the risks associated with regional blocks and/or anesthesia. Plan is to take the patient to the operating room at some point in the next few weeks for the following procedures: 1. Left carpal tunnel release under local All of the preoperative paperwork including the consent was discussed today. All of the patient's questions were answered in the clinic today. The patient understands that they will be in contact with our surgical instrument repair specialist to discuss scheduling their procedure. Patient denies diabetes, blood thinners, asthma, heart issues, lung issues, kidney issues, or current smoking. 2. Carpal tunnel syndrome, right Symptoms intermittent, daily, worse at night Patient would like to proceed with operative intervention on the left side prior to any intervention of the right Patient is educated that if he would like, can get him signed up for right-sided carpal tunnel release at his postop visit from the left if he is recovering well Patient was amenable to this plan Coding Level of Care Code New Pt Level 4 (55183) Diagnoses Bilateral carpal tunnel syndrome G56.03
--- OUTSIDE RECORDS SUMMARY | 2024-04-14 12:30 | XMS_ITS ---
Author Organization Samuel Hassan MD Address [address] [place], [place] [id number] Care Team Providers Care Seat Cover Cutter Name Role Phone Samuel Hassan Primary Care Provider [phone] Allergies No Known Allergies REASON FOR VISIT 6 MO F/U Medications Medication SIG (Take, Route, Frequency, Duration) Notes [...] a day for 90 days 10/13/2012 Not-Taking Immunizations Vaccine Route Administration Date Status Comme nts Influenza High Dose IM Intramuscular 11/07/2023 Administer ed Vital Signs Blood pressure systolic 142 mm Hg 11/07/19 24 Blood pressure diastolic 60 mm Hg 024 Height 66.25 in 11/07/2023 Weight 171 lbs 11/07/2023 BMI 27.39 kg/m2 11/07/2023 Encounters Encounter Location Date Provider Diagnosis Samuel Hassan MD [address] [place] [phone] 11/07/2023 Samuel Hassan Essential hypertension I10 ; First degree heart block I44.0 and Encounter for immunization Z23 Assessments Encounter Date Diagnosis (ICD Code) Assessment Notes Treatment Notes Treatment Clinical Notes Section Notes 11/07/2023 Essential hypertension (ICD-10 - I10) doing well on meds, stable, will contiue current regiment 11/07/2023 First degree heart block (ICD-10 - I44.0) doing well with pacer, will continue to follow [facility] 11/07/2023 Encounter for immunization (ICD-10 - Z23) flu vaccine administered Plan Of Treatment Treatment Notes Assessment Notes Essential hypertension doing well on med s, stable, will contiue current regiment First degree heart block doing well with pacer, will continue to follow [facility] Encounter for immunization flu vaccine a dministered Next Appt Details Follow Up: 3 Months, Reason: Provider Name:Samuel wallace, 05/05/2024 07:30:00 AM, [address] [place] [address], [address], [phone], Provider Name:Samuel wallace, 05/12/2024 10:30:00 AM, [address] [place] [address], [place] [address], [place], [place], [phone], Progress Notes * Deven PERDOMO FDOB:1940 (83 yo M)Acc No.[id number]:11/07/2023 Progress Notes Patient:?Deven Perdomo Provider:?Samuel Hassan MD :1940???Age:83 Y???Sex:Male George e:11/07/2023 Address:[address], [place], [id number] Subjective: * Chief Complaints: * ???6 MO F/U * HPI: ???Symptom(s):? patient is a 83 yo male here for 6 month follow up visit. is doing well. * ROS:?General/Constitutional:?Denies?Chills.?Denies?Fatigue.?Denies?Fever.?Denies?Headache.?ENT:?Patient denies?decreased sense of smell , any loss of taste , sore throat.?Denies?Sore throat.?Respiratory:?Denies?Cough.?Denies?Shortness of breath at rest.?Denies?Shortness of breath with exertion.?Gastrointestinal:?Denies?Diarrhea.?Denies?Nausea.?Musculoskeletal:?Patient denies?muscle aches.?Peripheral Vascular:?Patient denies?red and blue toes.? * Medical History:? * Surgical History:? * Hospitalization/Major Diagno stic Procedure:? * Medications:?TakingXarelto 2 0 MG Tablet 1 tablet with food Orally Once a dayIrbesartan-hydroCHLOROthiazide 150-12.5 MG Tablet TAKE 1 TABLET BY MOUTH EVERY DAY Albuterol Sulfate HFA 108 (90 Base) MCG/ACT Aerosol Solution INHALE 2 PUFFS BY MOUTH EVERY 6 HOURS NEEDED Inhalation every 4 hrsTaking Xarelto 20 MG Tablet 1 tablet with food Orally Once a dayTaking Irbesartan-hydroCHLOROthiazide 150-12.5 MG Tablet TAKE 1 TABLET BY MOUTH EVERY DAY Taking Albuterol Sulfate HFA 108 (90 Base) MCG/ACT Aerosol Solution INHALE 2 PUFFS BY MOUTH EVERY 6 HOURS NEEDED Inhalation every 4 hrsNot-Taking/PRNViagra 100 MG Tablet 1/2 tablet as needed Orally Once a dayDiovan HCT 160-12.5 MG Tablet 1 tablet Orally Once a dayMedication List reviewed and reconciled with the patientNot-Taking/PRN Viagra 100 MG Tablet 1/2 tablet as needed Orally Once a dayNot-Taking/PRN Diovan HCT 160-12.5 MG Tablet 1 tablet Orally Once a dayMedication List reviewed and reconciled with the patient * Allergies:?N.K.D.A.yes[Aller gies Verified] Objective: * Vitals:?Ht: 66.25, Wt:171, B TN:27.39, BP:142/60, Repeat BP:142/60. * Examination: ???General Examination: ?GENERAL APPEARANCE:? alert, well hydrated, in no distress .?HEAD:? normocephalic.?SKIN:? good turgor.?HEART:? no murmurs, rubs, gallops, regular rate and rhythm.?LUNGS:? no wheezes, rales, rhonchi, good air movement, clear to auscultation bilaterally.? Assessment: * Assessment: 1.?First degree heart block - I44.0 (Primary)?2.?Essential hypertension - I10?3.?Encounter for immunization - Z23? Plan: * Treatment: 2.?Essential hypertension? Notes: doing well on meds, stable, will contiue current regiment?? 3.?Encounter for immunizatio n? Notes: flu vaccine administered?? * Immunizations:? Influenza High Dose : 0.5 mL (Dose No:1) (Route: Intramuscular) given by Katy Thorne on Left Deltoid * Procedure Codes:?13034 FLU V ACC PRSV FREE INC [id number] ADMN FLU VAC NO FEE SCHED SAME DAY * Follow Up:?3 Months * * Sign off status: Completed true * Provider:?Samuel Hassan MD Date:?0 11/07/2023 Generated for Brandoni rajeev/Fortino/eTransmitting on:?04/14/2024 12:29 PM EST History and Physical Notes * HPI (History of Present Illness) Category Sub-Category Detail Notes Category Not es Symptom(s) patient is a 83 yo male here for 6 month follow up visit. is doing well Examination Category Sub-Category Detail Notes Category Not es General Examination GENERAL APPEARANCE: alert, w ell hydrated, in no distress HEAD: normocephalic HEART: no murmurs, rubs, ga llops, regular rate and rhythm LUNGS: no wheezes, rales, r honchi, good air movement, clear to auscultation bilaterally SKIN: good turgor
--- OUTSIDE RECORDS SUMMARY | 2024-04-14 12:30 | XMS_ITS ---
Author Organization Samuel Hassan MD Address [address] [place] [phone] Care Team Providers Care Final Inspector Truck Trailer Name Role Phone Samuel Hassan Primary Care Provider [phone] REASON FOR VISIT ? 3 month appt Encounters Encounter Location Date Provider Diagnosis Samuel Hassan MD [address] [facility] [address] [place] [phone] 11/07/2023 Samuel Hassan Plan Of Treatment Next Appt Details Provider Name:Samuel Knight ier, 05/05/2024 07:30:00 AM, [address] [place] [address], [address], [phone], Provider Name:Samuel Knight ier, 05/12/2024 10:30:00 AM, [address] [place] [address], [address] [place], [phone], Progress Notes * Deven PERDOMO FDOB:1940 (83 yo M)Acc No.[id number]:11/07/2023 Patient:?Deven Perdomo :1940???Age:83 Y???Sex:Male Address:[address] [place] [address] , [place] [address] * true * Date:? Generated for Yasmine boo/Fortino/eTransmitting on:?04/14/2024 12:29 PM EST
--- OUTSIDE RECORDS SUMMARY | 2024-04-14 12:30 | XMS_ITS ---
Author Organization Samuel Hassan MD Address [address] [place], [place] [phone] Care Team Providers Care Cook Ship Name Role Phone Samuel Hassan Primary Care Provider Allergies No Known Allergies REASON FOR VISIT NUMB FINGERTIPS BOTH HANDS Medications Medication SIG (Take, Route, Frequency, Duration) [...] every 4 hrs for 30 days Active Problems Problem Type SNOMED Code ICD Code Onset Dates Problem Status W/U Status Risk Notes Problem [id number] Bilateral carpal tunnel syndrome (G56.03) Active confirmed Vital Signs Blood pressure systolic 122 mm Hg 01/03/20 24 Blood pressure diastolic 58 mm Hg 024 Height 66.25 in 01/03/2024 Weight 171 lbs 01/03/2024 BMI 27.39 kg/m2 01/03/2024 Encounters Encounter Location Date Provider Diagnosis Samuel Hassan MD [address] [place] [phone] 01/03/2024 Samuel Hassan Bilateral carpal tunnel syndrome G56.03 Assessments Encounter Date Diagnosis (ICD Code) Assessment Notes Treatment Notes Treatment Clinical Notes Section Notes 01/03/2024 Bilateral carpal tunnel syndrome (ICD-10 - G56.03) pendingdiagnostic testing , order faxed to [facility] dept Plan Of Treatment Treatment Notes Assessment Notes Bilateral carpal tunnel syndrome pending diagnostic testing , order faxed to [facility] dept Pending Test Test Name Order Date EMG 01/03/2024 Next Appt Details Follow Up: after nerve condu ction, Reason: Provider Name:Samuel wallace, 05/05/2024 07:30:00 AM, [address] [place] [address], [place] [address], [place], [place], [phone], Provider Name:Samuel wallace, 05/12/2024 10:30:00 AM, [address] [place] [address], [address], [phone], Progress Notes * Deven PERDOMO FDOB:1940 (83 yo M)Acc No.[id number]:01/03/2024 Patient:?Deven Perdomo Provider:?Samuel Hassan MD :1940???Age:83 Y???Sex:Male George e:01/03/2024 Address:[facility] [address], [place] [facility], [id number] Subjective: * Chief Complaints: * ???NUMB FINGERTIPS BOTH HAND S * HPI: ???Symptom(s):? patient is a 83 male here with complaint of here numb finger tips both hands at same time. left hand worse goes into left palm at night lowering his hands yvon make it goe away. * ROS:?General/Constitutional:?Denies?Chills.?Denies?Fatigue.?Denies?Fever.?Denies?Headache.?ENT:?Patient denies?decreased sense of smell , [...] Verified] Objective: * Vitals:?Ht: 66.25, Wt:171, B GA:27.39, BP:122/58. * Examination: ???General Examination: ?GENERAL APPEARANCE:?well developed, well nourished.?HEAD:?normocephalic.?MUSCULOSKELETAL:?no symptoms with tapping on wrists or putting backs of hands together.? Assessment: * Assessment: 1.?Bilateral carpal tunnel s yndrome - G56.03 (Primary)? Plan: * Treatment: * Procedure Codes:? * Follow Up:?after nerve condu ction * * Sign off status: Completed true * Provider:?Samuel Hassan MD Date:?1 03/04/2023 Generated for Yasmine boo/Fortino/Clementransmitting on:?04/14/2024 12:29 PM EST History and Physical Notes * HPI (History of Present Illness) Category Sub-Category Detail Notes Category Not es Symptom(s) patient is a 83 male here with complaint of here numb finger tips both hands at same time. left hand worse goes into left palm at night lowering his hands yvon make it goe away Examination Category Sub-Category Detail Notes Category Not es General Examination GENERAL APPEARANCE: well developed , well nourished HEAD: normocephalic MUSCULOSKELETAL: no symptoms with tap ping on wrists or putting backs of hands together
== END 2024-04-14 10:54 | disposition home or self-care (01) ==
PROVIDERS: PCP Internal Medicine
DX: G56.03 Carpal tunnel syndrome, bilateral upper limbs (principal)
CPT/HCPCS: 99204

== ENCOUNTER → 2024-04-14 10:31 | Outpatient (BNVA) | payer MEDICARE, SELFPAY | PROVIDERS: PCP Internal Medicine | DX: G56.03 Carpal tunnel syndrome, bilateral upper limbs (principal) | CPT/HCPCS: 99202 ==

== ENCOUNTER → 2024-05-04 07:49 | Outpatient (REF) | payer MEDICARE, SELFPAY ==
--- OUTSIDE RECORDS SUMMARY | 2024-05-04 07:52 | XMS_ITS ---
Author Organization Samuel Hassan MD Address [address] [place] [phone] Care Team Providers Care Orbitread Operator Name Role Phone Samuel Hassan Primary Care Provider REASON FOR VISIT ? 3 month appt Encounters Encounter Location Date Provider Diagnosis Samuel Hassan MD [address] [facility] [address] [place] [phone] 11/07/2023 Samuel Hassan Plan Of Treatment Next Appt Details Provider Name:Samuel Knight ier, 05/05/2024 07:30:00 AM, [address] [place] [address], [address], [phone], Provider Name:Samuel Knight ier, 05/12/2024 10:30:00 AM, [address] [place] [address], [address] [place], [phone], Progress Notes * Deven PERDOMO FDOB:1940 (83 yo M)Acc No.[id number]:11/07/2023 Patient:?Deven Perdomo F :1940???Age:83 Y???Sex:Male Address:[address] [place] [address] , [place] [address] * true * Date:? Generated for Yasmine boo/Fortino/eTransmitting on:?05/04/2024 07:52 AM EDT
--- OUTSIDE RECORDS SUMMARY | 2024-05-04 07:52 | XMS_ITS ---
Author Organization Samuel Hassan MD Address [address] [place], [place] [phone] Care Team Providers Care Fire Safety Director Name Role Phone Samuel Hassan Primary Care Provider [phone] Allergies No Known Allergies REASON FOR VISIT [...] Location Date Provider Diagnosis Samuel Hassan MD [address] [place] [phone] 11/07/2023 Samuel Hassan Essential hypertension I10 ; First degree heart block I44.0 and Encounter for immunization Z23 Assessments Encounter Date Diagnosis (ICD Code) Assessment Notes Treatment Notes Treatment Clinical Notes Section Notes 11/07/2023 Essential hypertension (ICD-10 - I10) doing well on meds, stable, will contiue current regiment 11/07/2023 First degree heart block (ICD-10 - I44.0) doing well with pacer, will continue to follow [facility] cardiology 11/07/2023 Encounter for immunization (ICD-10 - Z23) flu vaccine administered Plan Of Treatment Treatment Notes Assessment Notes Essential hypertension doing well on med s, stable, will contiue current regiment First degree heart block doing well with pacer, will continue to follow [facility] cardiology Encounter for immunization flu vaccine a dministered Next Appt Details Follow Up: 3 Months, Reason: Provider Name:Samuel wallace, 05/05/2024 07:30:00 AM, [address] [place] [address], [address], [phone], Provider Name:Samuel wallace, 05/12/2024 10:30:00 AM, [address] [place] [address], [place] [address], [place], [place], [phone], Progress Notes * Deven PERDOMO FDOB:1940 (83 yo M)Acc No.[id number]:11/07/2023 Progress Notes Patient:?Deven Perdomo Provider:?Samuel Hassan MD :1940???Age:83 Y???Sex:Male George e:11/07/2023 Address:[address], [place], [id number] Subjective: * Chief Complaints: * ???6 MO [...] Verified] Objective: * Vitals:?Ht: 66.25, Wt:171, B IL:27.39, BP:142/60, Repeat BP:142/60. * Examination: ???General Examination: [...] Katy Thorne on Left Deltoid * Procedure Codes:?30420 FLU V ACC PRSV FREE INC [id number] ADMN FLU VAC NO FEE SCHED SAME DAY * Follow Up:?3 Months * * Sign off status: Completed true * Provider:?Samuel Hassan MD Date:?0 11/07/2023 Generated for Brandoni rajeev/Fortino/eTransmitting on:?05/04/2024 07:52 AM EDT History and Physical Notes * HPI (History [...]
--- OUTSIDE RECORDS SUMMARY | 2024-05-04 07:52 | XMS_ITS ---
Author Organization Samuel Hassan MD Address [address] [place], [place] [phone] Care Team Providers Care Transmission Inspector Name Role Phone Samuel Hassan Primary Care [...] Problem Status W/U Status Risk Notes Problem [id number] Bilateral carpal tunnel syndrome (G56.03) Active confirmed Vital Signs Blood pressure systolic 122 mm Hg 01/03/20 24 Blood pressure diastolic 58 mm Hg 024 Height 66.25 in 01/03/2024 Weight 171 lbs 01/03/2024 BMI 27.39 kg/m2 01/03/2024 Encounters Encounter Location Date Provider Diagnosis Samuel Hassan MD [address] [place] [phone] 01/03/2024 Samuel Hassan Bilateral carpal tunnel syndrome G56.03 Assessments Encounter Date Diagnosis (ICD Code) Assessment Notes Treatment Notes Treatment Clinical Notes Section Notes 01/03/2024 Bilateral carpal tunnel syndrome (ICD-10 - G56.03) pendingdiagnostic testing , order faxed to [facility] dept Plan Of Treatment Treatment Notes Assessment Notes Bilateral carpal tunnel syndrome pending diagnostic testing , order faxed to [facility] dept Pending Test Test Name Order Date EMG 01/03/2024 Next Appt Details Follow Up: after nerve condu ction, Reason: Provider Name:Samuel wallace, 05/05/2024 07:30:00 AM, [address] [place] [address], [place] [address], [place], [place], [phone], Provider Name:Samuel wallace, 05/12/2024 10:30:00 AM, [address] [place] [address], [address], [phone], Progress Notes * Deven PERDOMO FDOB:1940 (83 yo M)Acc No.[id number]:01/03/2024 Patient:?Deven Perdomo Provider:?Samuel Hassan MD :1940???Age:83 Y???Sex:Male George e:01/03/2024 Address:[facility] [address], [facility], [id number] Subjective: * Chief Complaints: * ???NUMB FINGERTIPS [...] Verified] Objective: * Vitals:?Ht: 66.25, Wt:171, B MD:27.39, BP:122/58. * Examination: ???General Examination: ?GENERAL APPEARANCE:?well developed, well nourished.?HEAD:?normocephalic.?MUSCULOSKELETAL:?no symptoms with tapping on wrists or putting backs of hands together.? Assessment: * Assessment: 1.?Bilateral carpal tunnel s yndrome - G56.03 (Primary)? Plan: * Treatment: * Procedure Codes:? * Follow Up:?after nerve condu ction * * Sign off status: Completed true * Provider:?Samuel Hassan MD Date:?1 03/04/2023 Generated for Yasmine boo/Fortino/eTransmitting on:?05/04/2024 07:52 AM EDT History and Physical [...]
--- NOTE | 2024-05-04 07:55 | CA_ITS ---
Transthoracic Echocardiogram Patient (Last, First, Middle): Deven Escobar F Gender: Male Date of : 1940 Age: 83 Procedure Date: 05/04/2024 Procedure Type: Transthoracic Echocardiogram Location: OP Height: 162.56 cm Weight: 78.02 kg BSA: 1.83 m2 Heart Rate: bpm BP: 122 / 60 mmHg Hot Walker: Referring MD: Dex Blair MD Symptoms: I48.0 - Paroxysmal atrial fibrillation Study Quality: Fair ECG Rhythm: Sinus Conclusions: - The left ventricular systolic function is normal. The calculated ejection fraction is 60% by biplane method. - There is mild mitral annular calcification. Findings Left Ventricle Normal left ventricular cavity size. There is moderately increased left ventricular wall thickness. The left ventricular systolic function is normal. The calculated ejection fraction is 60% by biplane method. There is no evidence of regional wall motion abnormalities. Evidence suggests grade I (mild) diastolic dysfunction. Right Ventricle Normal right ventricular cavity size and systolic function. There is a pacemaker wire seen in the right ventricle. Atria Both atria are normal in size. Aortic Valve The aortic valve was not well visualized. There is no aortic valve stenosis. There is no aortic valve regurgitation. Mitral Valve There is mild mitral annular calcification. There is no mitral valve regurgitation. There is no mitral valve stenosis. Pulmonic Valve The pulmonic valve is likely normal. Tricuspid Valve There is trace tricuspid valve regurgitation. There is no evidence of pulmonary hypertension. Great Vessels The asc aorta is normal in size. Venous The inferior vena cava is normal in size and collapses greater than 50% with inspiration. Pericardium/Pleural There is no evidence of pericardial effusion. Prior Study Comparison No significant change compared to prior study dated: 05/27/2023. Measurements 2D Linear Measurements IVSd: 1.29 0.6-0.9/0.6-1.0 cm LVIDd: 4.50 3.9-5.3/4.2-5.9 cm LVIDd Index: 2.46 2.4-3.2/2.2-3.1 cm/m2 LVIDs: 3.11 2.0-3.6 cm LVPWd: 1.25 0.7-1.1 cm Ao Root: 2.90 2.1-3.5 cm LA Diam: 3.90 2.7-3.8/3.0-4.0 cm LAIDs Index: 2.13 1.5-2.3 cm/m2 LV Mass: 268.10 67-162/88-224 g LV Mass Index: 146.50 43-95/49-115 g/m2 LVOT Diam: 2.20 3.0+(-)1.3 cm 2D Systolic Function EF 4C: 56.60 >55% EF 2C: 58.20 >55% EF BiP: 59.70 >55% Mitral Valve MV VTI: 0.42 MV Pk Servando: 1.31 MV Mn Servando: 0.70 MV Pk Grad: 7.00 MV Mn Grad: 2.00 MV Pk E: 0.80 MV PK A: 1.25 MV Decel Time: 249.00 E/A: 0.60 E'Lateral: 5.44 E'Medial: 2.94 E/E' Med: 27.20 E/E' Lat: 14.70 PHT: 73.00 MVA PHT: 3.01 MVA Continuity: 1.41 Decel Pennington: 3.22 Aortic Valve AoV Pk Servando: 1.35 AoV Mn Servando: 0.92 AoV VTI: 0.28 AoV Pk Grad: 7.00 Aov Mn Grad: 4.00 DYLAN Cont.VTI: 2.45 LVOT LVOT Pk Servando: 0.98 LVOT Mn Servando: 0.64 LVOT VTI: 0.16 LVOT Pk Grad: 4.00 LVOT Mn Grad: 2.00 LVOT Diam: 2.20 LVOT Area: 3.80 Diastolic Function MV Pk E: 0.80 MV Pk A: 1.25 E/A: 0.60 E'Medial: 2.94 E/E' Med: 27.20 E' Laterial: 5.44 E/E' Lat: 14.70 Right Ventricle TAPSE (mm): 27.00 TVS' Servando: 11.00 Tricuspid Valve TR Pk Servando: 2.53 TR Pk Grad: 26.00 RA Press: 3.00 RVSP: 29.00 Great Vessels Aorta Ao Root-2D: 2.90 2.0-3.7 cm Ao Asc: 3.10 2.1-3.4 cm Pulmonary Valve PV Pk Servando: 0.71 Peak PV Grad: 2.00 Updated in Other Vendor System with Status of Final Carlos Nguyen MD electronically signed on 05/04/2024 9:54:19 AM with status of Final
== END ==
LOC: HO.CARD 07:49
PROVIDERS: PCP Internal Medicine; Visit Provider Internal Medicine Cardiovascular Disease
DX: I48.0 Paroxysmal atrial fibrillation (principal)
CPT/HCPCS: 93306

== ENCOUNTER → 2024-05-04 07:55 | Outpatient (BNV) | payer MEDICARE, SELFPAY | PROVIDERS: PCP Internal Medicine; Visit Provider Internal Medicine | DX: I34.81 Nonrheumatic mitral (valve) annulus calcification (principal) | CPT/HCPCS: 93306 ==

== ENCOUNTER 2024-05-05 07:30 | Outpatient (REF) | payer MEDICARE, SELFPAY ==
[2024-05-05 11:00] LABS: MANUAL DIFF FLAG NO
[2024-05-05 11:14] LABS: Basophils Absolute Auto 0.1 X10*3/uL (0.0-0.2); Basophils Percent Auto 0.5 % (0-2); Eosinophils Absolute Auto 0.2 X10*3/uL (0.0-0.4); Eosinophils Percent Auto 1.6 % (0-4); Hemoglobin 16.1 g/dl (14.0-18.0); Imm Gran Abs Auto 0.05 X10*3/uL (0.00-0.03); Imm Gran Pct Auto 0.5 % (0.0-0.4); Lymphocytes Absolute Auto 2.2 X10*3/uL (1.2-4.9); Lymphocytes Percent Auto 23.6 % (20-40); Mean Corpuscular HGB Conc 33.5 g/dl (31.0-36.0); Mean Corpuscular Hemoglobin 34.2 pg (27.0-33.0); Mean Corpuscular Volume 101.9 fL (80.0-98.0); Mean Platelet Volume 9.8 fL (9.4-12.4); Monocytes Absolute Auto 0.8 X10*3/uL (0.1-1.2); Monocytes Percent Auto 8.6 % (2-11); Neutrophils Absolute Auto 6.1 x10*3/uL (2.0-8.3); Neutrophils Percent Auto 65.2 % (45-73); Platelet Count 263 X10*3/uL (160-400); Red Blood Count 4.71 X10*6/uL (4.60-5.80); Red Cell Distribution Width 14.6 % (11.0-16.0); White Blood Count 9.3 X10*3/uL (4.8-10.8)
[2024-05-05 11:16] LABS: Appearance Urine Clear; Color Urine Yellow; Glucose Urine UA Negative (Negative); Leukocyte Esterase Urine Negative (Negative); Nitrite Urine Negative (Negative); PH 6.5 (5.0-9.0); Specific Gravity - Urine 1.015 (1.005-1.025); Urine Blood Negative (Negative); Urine Ketones Negative (Negative); Urine Protein Negative (Neg-Trace)
[2024-05-05 11:21] LABS: Estimated Average Glucose 117 mg/dL; Hemoglobin A1c % 5.7 % (<6.0)
[2024-05-05 11:22] LABS: Bacteria Urine None Seen (None Seen); Hyaline Casts Urine 0-2 /LPF (0-2); RBC Urine 0-2 /HPF (0-2); Squamous Epithelial Cell Urine 0-2 /HPF (0-2); WBC Urine 0-5 /HPF (0-5)
[2024-05-05 11:28] LABS: Alanine Aminotransferase 19 U/L (0-40); Alkaline Phosphatase 91 U/L (39-117); Anion Gap 12 (12-20); Aspartate Amino Transferase 31 U/L (5-37); Bilirubin Total 0.7 mg/dL (0.0-1.0); Blood Urea Nitrogen 25 mg/dL (9-16); Calcium 9.5 mg/dL (8.4-10.2); Carbon Dioxide 28 mmol/L (22-29); Chloride 106 mmol/L (96-108); Cholesterol 203 mg/dL (<200); Estimated Glomerular Filt Rate > 60; Glucose Fasting 103 mg/dL (60-99); HDL Cholesterol 42 mg/dL (>40); LDL Cholesterol Calculated 131 mg/dL (<100); Potassium 4.3 mmol/L (3.3-5.1); Sodium 142 mmol/L (135-145); Total Protein 7.7 g/dL (6.5-8.0); Triglycerides 152 mg/dL (<150)
[2024-05-05 11:44] LABS: PSA,Total (Free>4and<10) 14.36 ng/mL (0.00-4.00)
[2024-05-05 11:48] LABS: Creatinine Urine 100.37 mg/dL; Microalbum/Creatinine Ratio Ur 44.8 ug/mg cr (<30)
== END 2024-05-05 07:31 | disposition home or self-care (01) ==
LOC: HO.LNP 07:30
PROVIDERS: Visit Provider Internal Medicine
DX: Z00.00 Encounter for general adult medical examination without abnormal findings (principal); R73.09 Other abnormal glucose; E78.00 Pure hypercholesterolemia, unspecified; I10 Essential (primary) hypertension; Z12.5 Encounter for screening for malignant neoplasm of prostate
CPT/HCPCS: 80053; 80061; 81001; 82043; 82570; 83036; 84153; 85025

== ENCOUNTER 2024-05-14 13:05 | Outpatient (AMB) | payer MEDICARE, SELFPAY ==
[2024-05-14 13:16] VITALS: BP 140/74; PULSE 86; BMI 27.4
--- NOTE | 2024-05-14 13:16 | A.OFFVIS_ITS ---
Vital Signs 05/14/24 13:16 Height 5 ft 6 in Weight 169 lb 12.095 oz BMI 27.4 BP 140/74 H Blood Pressure Location Lt brachial Position Sitting Pulse 86 Intake Visit Reasons: 6 mth f/up echo Intake Note: 6 month follow-up with ekg and medtronic check after echo feeling good Tibco Developer Required: No Allergies No Known Allergies [No Known Allergies*] Allergy (Verified 04/14/24 10:39) Medication List - Last Reconciled 05/14/24 by Dex Blair MD irbesartan-hydrochlorothiazide 150-12.5 mg 1 tab PO DAILY rivaroxaban (Xarelto) 20 mg PO DAILY HPI Comments Details: Deven comes for follow-up. Patient denies any significant cardiovascular symptoms. Remains very active. Denies any exertional chest pain or shortness of breath. Denies any episodes of prolonged palpitation irregular heartbeat. No bleeding issues or neurologic events. No lightheadedness, syncope. No orthopnea, PND, leg edema. 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 Mother No problems noted. Social History Alcohol intake: never Patient Tobacco Use Status: Never used Tobacco Review of Systems Const Denies chills, Denies fatigue, Denies fever(s), Denies frequent falls, Denies weakness, Denies weight gain and Denies weight loss ENT Denies dizziness Card Denies chest pain, Denies leg edema, Denies lightheadedness, Denies palpitations, Denies dyspnea, Denies dyspnea on exertion, Denies orthopnea and Denies other (loss of consciousness) Resp Denies cough, Denies dyspnea and Denies dyspnea on exertion GI Denies hematochezia and Denies change in stool character Musc Denies abnormal gait, Denies muscle weakness, Denies numbness, Denies radiating pain into limb and Denies tingling Neuro Denies abnormal gait, Denies dizziness, Denies frequent falls, Denies numbness, Denies tingling and Denies weakness Endo Denies fatigue and Denies palpitations Physical Exam Vital Signs: Last Vital Signs Pulse 86 05/14/24 13:16 BP 140/74 H 05/14/24 13:16 BMI result Body Mass Index 27.4 Const General: cooperative, comfortable, no acute distress, alert and awake Nutritional Appearance: overweight Orientation/consciousness: patient oriented x3 Limitations: no limitations Neck Neck: Yes trachea midline, Yes supple and Yes no JVD Resp Effort & Inspection: normal respiratory effort Auscultation: clear to auscultation bilaterally Cardio Jugular venous distension: no JVD Palpation: normal PMI Rate: regular rate Rhythm: regular rhythm Heart sounds: S1 normal heart sound present and S2 normal heart sound present GI Auscultation: normal bowel sounds Skin General skin exam: no rashes or lesions noted and ecchymosis Neuro General: patient oriented x3 and no focal motor deficits Extrem General: Yes no clubbing, cyanosis or edema Psych Appearance: grossly normal Office Procedures Cardiac Device Check Cardiac Device Check Details: Dual-chamber Medtronic pacemaker in place programmed in DDD at 60 beats per minute. Ventricular pacing 100% time. Two episodes of atrial fibrillation noted. Atrial ventricular pacing thresholds excellent and reprogrammed to enhance battery life. Atrial ventricular sensing is adequate. Pacing lead impedance is stable. Battery life is excellent at 11 years 10376-[place] Cardiac Device Check, pacemaker dual lead Procedure code (CPT) selection complete EKG Details: EKG shows atrially sensed, ventricularly paced rhythm 00150-[id number], Complete Assessment & Plan Assessment & Plan (1) Paroxysmal atrial fibrillation: Code(s): I48.0 - Paroxysmal atrial fibrillation Category: Medical Plan: Paroxysmal atrial fibrillation this elderly gentleman without any obvious new symptoms. Has intermittent episodes of atrial fibrillation. No indication for antiarrhythmic drug therapy as he remains asymptomatic episodes intermittent. If he becomes paroxysmal may need further therapy. Continue to avoid stimulants. Continue full oral anticoagulation, currently on Xarelto 20 mg daily. Semi annual renal function test should be pursued. Continue aggressive blood pressure control which is currently well optimized importance of good blood pressure control was discussed. (2) Cardiac pacemaker in situ: Comment: implanted February 2015 you for advanced AV block. Medtronic dual-chamber pacemaker Code(s): Z95.0 - Presence of cardiac pacemaker Category: Medical Plan: Cardiac pacemaker in-situ for advanced AV block, currently ventricularly pacer dependent. Will continue follow remotely every 3 months and follow up in the clinic in 6 months time. No recent change in LV ejection fraction with persistent RV pacing. Will follow up in the clinic in 6 months time, sooner p.r.n.. Thank you for allowing me to partake in his care Coding Level of Care Code Est Pt Level 4 (82885) Complex EM visit Add On G2211 Diagnoses Paroxysmal atrial fibrillation I48.0 Cardiac pacemaker in situ Z95.0 CPT Codes Cardiac Device Check - Cardiac Device 2: [id number]-YT Cardiac Device Check, pacemaker dual lead ([id number]) EKG - CPT: 30454-Irzosfmpoakyqiafb, Complete ([id number])
--- OUTSIDE RECORDS SUMMARY | 2024-05-14 16:11 | XMS_ITS ---
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 Name Role Phone Sonya Samuel Primary Care Provider [phone] REASON FOR VISIT HCC Risk Codes Encounters Encounter Location Date Provider Diagnosis Samuel Hassan MD [address] [facility] [address] [place] [phone] 05/04/2024 Samuel Hassan Plan Of Treatment Next Appt Details Provider Name:Samuel Knight ier, 11/12/2024 10:15:00 AM, [address] [place] [address], [address] [place] [address], [phone], Provider Name:Samuel wallace, 05/07/2025 07:45:00 AM, [address] [place] [address], [address] [place] [address], [phone], Provider Name:Samuel wallace, 05/14/2025 09:30:00 AM, [address], [address], [place], [place], [phone], Progress Notes * Deven PERDOMO FDOB:1940 (83 yo M)Acc No.[id number]:05/04/2024 Patient:?Deven PERDOMO :1940???Age:83 Y???Sex:Male Address:[address], [place] [address] * * Date:?
--- OUTSIDE RECORDS SUMMARY | 2024-05-14 16:11 | XMS_ITS ---
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 Name Role Phone Samuel Hassan Primary Care Provider Allergies No Known Allergies REASON FOR VISIT ANNUAL EXAM, CBACK PSA Medications Medication SIG (Take, Route, Frequency, Duration) Notes Start Date End Date Status Irbesartan-hydroCHLOROth iazide 150-12.5 MG TAKE 1 TABLET BY MOUTH EVERY DAY for 90 Active Viagra 100 MG 1/2 tablet as needed Orally Once a day for 90 days 04/23/2019 Not-Taking Diovan HCT 160-12.5 MG 1 tablet Orally O nce a day for 90 days 10/13/2012 Not-Taking Xarelto 20 MG 1 tablet with food Orally Once a day Active Albuterol Sulfate HFA 108 (90 Base) MCG/ACT INHALE 2 PUFFS BY MOUTH EVERY 6 HOURS NEEDED Inhalation every 4 hrs for 30 days Active Social History Tobacco Use: Social History Observation [...] ast year? No Points 0 Interpretation Negative Vital Signs Blood pressure systolic 142 mm Hg 05/13/19 Blood pressure diastolic 56 mm Hg 025 Height 66.25 in 05/12/2024 Weight 171 lbs 05/12/2024 BMI 27.39 kg/m2 05/12/2024 Encounters Encounter Location Date Provider Diagnosis Samuel Hassan MD [address] [place] [address] [place] [phone] 05/12/2024 Samuel Hassan Annual physical exam Z00.00 ; Elevated PSA R97.20 ; Essential hypertension I10 ; Chest rales R09.89 ; Elevated BUN R79.9 and Foreign body in ear, left, initial encounter T16.2XXA Assessments Encounter Date Diagnosis (ICD Code) Assessment Notes Treatment Notes Treatment Clinical Notes Section Notes 05/12/2024 Annual physical exam (ICD-10 - Z00.00) Labs reviewed and discussed with patient 05/12/2024 Elevated PSA (ICD-10 - R97.20) is seeing john razo in june/ send copy of psa to him/ LABS FAXED TO [facility] 05/12/2024 Essential hypertension (ICD-10 - I10) doing well 05/12/2024 Chest rales (ICD-10 - R09.89) has chronic 05/12/2024 Elevated BUN (ICD-10 - R79.9) is related 05/12/2024 Foreign body in ear, left, initial encounter (ICD-10 - T16.2XXA) removed with foreceps and ear was normal Plan Of Treatment Treatment Notes Assessment Notes Annual physical exam Labs reviewed and d iscussed with patient Elevated PSA is seeing john covington in june/ send copy of psa to him/ LABS FAXED TO [facility] Essential hypertension doing well Chest rales has chronic Elevated BUN is related Foreign body in ear, left, initial encou nter removed with foreceps and ear was normal Next Appt Details Follow Up: 6 Months, Reason: Provider Name:Samuel Knight rodrigo, 11/12/2024 10:15:00 AM, [address], [address], [place], [place], [phone], Provider Name:Samuel Knight rodrigo, 05/07/2025 07:45:00 AM, [address], [address], [place], [place], [phone], Provider Name:Samuel Knight rodrigo, 05/14/2025 09:30:00 AM, [address], [address], [place], [phone], Progress Notes * Deven PERDOMO FDOB:1940 (83 yo M)Acc No.[id number]:05/12/2024 Progress Notes Patient:?Deven PERDOMO Alex Provider:?Samuel Hassan MD :1940???Age:83 Y???Sex:Male George e:05/12/2024 Address:[facility] [address], [place], [id number] Subjective: * Chief Complaints: * ???1. ANNUAL EXAM. 2. CBACK PSA. * HPI: ???Depression Screening:?PHQ-9?Little interest or pleasure in doing things?Not at all,?Feeling down, depressed, or hopeless?Not at all,?Trouble falling or staying asleep, or sleeping too much?Not at all,?Feeling tired or having little energy?Not at all,?Poor appetite or overeating?Not at all,?Feeling bad about yourself or that you are a failure, or have let yourself or your family down?Not at all,?Trouble concentrating on things, such as reading the newspaper or watching television?Not at all,?Moving or speaking so slowly that other people could have noticed; or the opposite, being so fidgety or restless that you have been moving around a lot more than usual?Not at all,?Thoughts that you would be better off or of hurting yourself in some way?Not at all,?Total Score?0.?Interpretation and Intervention?Depression Screening Findings?Negative,?Follow-Up for Depression?: review of PHQ-9 found negative result, no follow-up needed.? thinks he has part of hearing aid in his ear. ???Communication Needs:?Communication Needs?Does the patient have a hearing impairment?No,?Does the patient have a vision impairment??Yes,?If yes, what is the vision impairment??Glasses,?Does the patient have a cognition impairment??No.?Fall Risk:?History?Have you had any falls with injury in the past year??No,?Have you had two or more falls in the past year??No.?SDOH Questions:?SDOH Questions?In the past year have you been worried about losing housing??No,?In the past year have you or any family members you live with been unable to get any of the following when it was really needed? Check all that apply:?None.?Symptom(s):? patient is a 83 yo male here for annual vist with review of recent labs and follow up of chronic issues. * ROS:?General/Constitutional:?Change in appetite?denies.?Chills?denies.?Fever?denies.?Ophthalmologic:?Blurred vision?denies.?Discharge?denies.?Pain?denies.?ENT:?Decreased hearing?denies.?Sore throat?denies.?Swollen glands?denies.?Endocrine:?Cold intolerance?denies.?Excessive thirst?denies.?Heat intolerance?denies.?Weight loss?denies.?Respiratory:?Cough?denies.?Shortness of breath at rest?denies.?Shortness of breath with exertion?denies.?Wheezing?denies.?Cardiovascular:?Chest pain at rest?denies.?Chest pain with exertion?denies.?Irregular heartbeat?denies.?Shortness of breath?denies.?Gastrointestinal:?Abdominal pain?denies.?Change in bowel habits?denies.?Diarrhea?denies.?Nausea?denies.?Rectal bleeding?denies.?Vomiting?denies .?Genitourinary:?Blood in urine?denies.?Difficulty urinating?denies.?Frequent urination?denies.?Musculoskeletal:?Painful joints?denies.?Weakness?denies.?Skin:?Dry skin?denies.?Itching?denies.?Denies?Mole(s),? changes in moles, new moles or any lesions of concern.?Denies?Photosensitivity.?Rash?denies.?Neurologic:?Dizziness?denies.?Fainting?denies.?Headache?denies.? * Medical History:?Basal cell carcinoma, Kidney stones, colonoscopy 2006 due in 10 years; colonoscopy done 08/26/15 w/Dr. Shah (no further testing required), Holter Monitor - 05/30/2012, No further psa 07/05/2017, Crcl 73. * Family History:?Father: dece ased 56 yrs.?Mother: 72 yrs.?1 sister(s) . 1 son(s) , 2 daughter(s) . .? 1 brother 62 Cancer Father- kidney Mother cardiac, Denies mental health/substance abuse family history, No pertinent family medical history, Denies mental health/substance abuse family history, Denies mental health/substance abuse family history. * Social History:?Tobacco Use:?Tobacco Use/Smoking?Patient is a?nonsmoker,?Additional Findings: Tobacco Non-User?Current non-smoker, currently using no form of tobacco.?Drugs/Alcohol:?Alcohol Screen?Did you have a drink containing alcohol in the past year??No,?Points?0,?Interpretation?Negative.?Miscellaneous:?Caffeine: yes, 1-2 cups per day. Children: yes. Exercise: yes, everyday walks 3.5 miles. Home smoke detector use: yes. Housing: owning. Living with: spouse. Marital status: . Occupation: retired. Pets: none. Travel outside of the [place]: no. * Medications:?Taking Xarelto 20 MG Tablet 1 tablet with food Orally Once a day , Taking Albuterol Sulfate HFA 108 (90 Base) MCG/ACT Aerosol Solution INHALE 2 PUFFS BY MOUTH EVERY 6 HOURS NEEDED Inhalation every 4 hrs , Taking Irbesartan-hydroCHLOROthiazide 150-12.5 MG Tablet TAKE 1 TABLET BY MOUTH EVERY DAY , Not-Taking/PRN Viagra 100 MG Tablet 1/2 tablet as needed Orally Once a day , Not-Taking/PRN Diovan HCT 160-12.5 MG Tablet 1 tablet Orally Once a day , Medication List reviewed and reconciled with the patient * Allergies:?N.K.D.A. Objective: * Vitals:?Ht: 66.25, Wt: 171, BMI:27.39, BP:142/56, Wt-k.57. * ???Past Orders: ???Lab:Lipid Panel (Order Da te 05/05/2024) (Collection Date & Time - 05/05/2024 07:30 AM) ? Value Reference Range ?Triglycerides 152 H <150 - mg/dL ?Cholesterol 203 H <200 - m g/dL ?LDL Cholesterol Calculated 131 H <100 - mg/dL ?HDL Cholesterol 42 >40 - mg/dL ???Lab:Microalbumin, Random (Order Date - 05/05/2024) (Collection Date & Time - 05/05/2024 07:30 AM) ? Value Reference Range ?Creatinine Urine 100.37 - m g/dL ?Microalbumin Urine 45.0 - mg/L ?Microalbum Creatinine Ratio Ur 44.8 H <30 - ug/mg cr ???Lab:Hemoglobin A1c (Order Date 05/05/2024) (Collection Date & Time - 05/05/2024 07:30 AM) ? Value Reference Range ?Hemoglobin A1c % 5.7 <6. 0 - % ?Estimated Average Glucose 117 - mg/dL ???Lab:UA ClnCatch+Micro w/r flx Cult (Order Date - 05/05/2024) (Collection Date & Time - 05/05/2024 07:30 AM) ? Value Reference Range ?Color Urine Yellow - ?Appearance Urine Clear - ?PH 6.5 5.0-9.0 - ?Glucose Urine UA Negative Neg ative - mg/dL ?Urine Blood Negative Negative - ?Specific [place] - Urine 1.015 1.005-1.025 - ?Urine Protein Negative Neg-Tr yessy - mg/dL ?Urine Ketones Negative Negati ve - mg/dL ?Nitrite Urine Negative Negati ve - ?Leukocyte Esterase Urine Negative Negative - ?RBC Urine 0-2 0-2 - /HPF ?WBC Urine 0-5 0-5 - /HPF ?Squamous Epithelial Cell Urine 0-2 0-2 - /HPF ?Bacteria Urine None Seen None Seen - ?Hyaline Casts Urine 0-2 0-2 - /LPF ???Lab:Complete Blood Count Auto Diff (Order Date - 05/05/2024) (Collection Date & Time - 05/05/2024 07:30 AM) ? Value Reference Range ?White Blood Count 9.3 4. 8-10.8 - X10*3/uL ?Red Blood Count 4.71 4.60 -5.80 - X10*6/uL ?Hemoglobin 16.1 14.0-18.0 - g/dl ?Hematocrit 48.0 42.0-52.0 - % ?Mean Corpuscular Volume 101.9 H 80.0-98.0 - fL ?Mean Corpuscular Hemoglobin 34.2 H 27.0-33.0 - pg ?Mean Corpuscular HGB Conc 33.5 31.0-36.0 - g/dl ?Red Cell Distribution Width 14.6 11.0-16.0 - % ?Platelet Count 263 160-4 00 - X10*3/uL ?Mean Platelet Volume 9.8 9.4-12.4 - fL ?Neutrophils Percent Auto 65.2 45-73 - % ?Imm Gran Pct Auto 0.5 H 0. 0-0.4 - % ?Lymphocytes Percent Auto 23.6 20-40 - % ?Monocytes Percent Auto 8.6 2-11 - % ?Eosinophils Percent Auto 1.6 0-4 - % ?Basophils Percent Auto 0.5 0-2 - % ?NRBC Pct Auto 0.0 0.0-0. 2 - /100WBC ?Neutrophils Absolute Auto 6.1 2.0-8.3 - x10*3/uL ?Imm Gran Abs Auto 0.05 H 0. 00-0.03 - X10*3/uL ?Lymphocytes Absolute Auto 2.2 1.2-4.9 - X10*3/uL ?Monocytes Absolute Auto 0.8 0.1-1.2 - X10*3/uL ?Eosinophils Absolute Auto 0.2 0.0-0.4 - X10*3/uL ?Basophils Absolute Auto 0.1 0.0-0.2 - X10*3/uL ?NRBC Abs Auto 0.000 0.0-0. 012 - X10*3/uL ???Lab:Comprehensive [place]. P basia Fast (Order Date - 05/05/2024) (Collection Date & Time - 05/05/2024 07:30 AM) ? Value Reference Range ?Sodium 142 135-145 - mmo l/L ?Bilirubin Total 0.7 0.0- 1.0 - mg/dL ?Aspartate Amino Transferase 31 5-37 - U/L ?Alanine Aminotransferase 19 0-40 - U/L ?Total Protein 7.7 6.5-8. 0 - g/dL ?Albumin Level 4.0 3.5-5. 0 - g/dL ?Alkaline Phosphatase 91 39-117 - U/L ?Potassium 4.3 3.3-5.1 - mmol/L ?Chloride 106 96-108 - mm ol/L ?Carbon Dioxide 28 22-29 - mmol/L ?Anion Gap 12 12-20 - ?Blood Urea Nitrogen 25 H 9-16 - mg/dL ?Creatinine 1.02 0.5-1.4 - mg/dL ?Estimated Glomerular Filt Rate > 60 - ?Glucose Fasting 103 H 60-9 9 - mg/dL ?Calcium 9.5 8.4-10.2 - m g/dL * Examination: ???General Examination: ?GENERAL APPEARANCE:?well developed, well nourished, in no acute distress.?HEAD:?normocephalic, atraumatic.?EYES:?pupils equal, round, reactive to light and accommodation, sclera non-icteric.?EARS:?normal.?ORAL CAVITY:?mucosa moist.?THROAT:?clear.?NECK/THYROID:?neck supple, full range of motion, no cervical lymphadenopathy, no bruits.?SKIN:?warm and dry, no suspicious lesions.?HEART:?regular rate and rhythm, S1, S2 normal, no murmurs.?LUNGS:?clear to auscultation bilaterally.?ABDOMEN:?soft, nontender, nondistended, bowel sounds present, normal, no organomegaly , no masses palpable.?RECTAL EXAM:?normal tone, no external hemorrhoids, no masses palpable, prostate normal, stool guaiac negative.?MALE GENITOURINARY:?uncircumcised, testes descended bilaterally, no testicular mass.?EXTREMITIES:?no clubbing, cyanosis, or edema.?NEUROLOGIC:?nonfocal, motor strength normal upper and lower extremities, sensory exam intact.? Assessment: * Assessment: 1.?Annual physical exam - Z0 0.00 (Primary)???2.?Elevated PSA - R97.20???3.?Essential hypertension - I10???4.?Chest rales - R09.89???5.?Elevated BUN - R79.9???6.?Foreign body in ear, left, initial encounter - T16.2XXA??? Plan: * Treatment: 2.?Elevated PSA? Notes: is seeing john razo in june/ send copy of psa to him/ LABS FAXED TO [facility]?? 3.?Essential hypertension? Notes: doing well?? 4.?Chest rales? Notes: has chronic?? 5.?Elevated BUN? Notes: is related?? 6.?Foreign body in ear, left , initial encounter? Notes: removed with foreceps and ear was normal?? * Preventive Medicine:? ??Counseling:?Care goal follow-up plan:?Counseling for abnormal BMI provided?Yes,?Above Normal BMI Follow-up?Giving encouragement to exercise.? * Follow Up:?6 Months * * The named appointment provid er may or may not be the originator of this progress note, and it is not deemed complete until electronically signed by the appointment provider. Sign off status: Pending * Provider:?Samuel Hassan MD Date:?0 05/12/2024 Generated for Yasmine boo/Fortino/Sethsmitting on:?05/14/2024 04:11 PM EDT History and Physical Notes * HPI (History of Present Illness) Category Sub-Category Detail Notes Category Not es Symptom(s) patient is a 83 yo male here for annual vist with review of recent labs and follow up of chronic issues. Depression Screening PHQ-9 Little inte rest or pleasure in doing things: Not at all thinks he has part of hearing aid in his ear. Feeling down, depressed, or hopeless: No t at all Trouble falling or staying asleep, or sl eeping too much: Not at all Feeling tired or having little energy: N ot at all Poor appetite or overeating: Not at all Feeling bad about yourself o r that you are a failure, or have let yourself or your family down: Not at all Trouble concentrating on thi ngs, such as reading the newspaper or watching television: Not at all Moving or speaking so slowly that other people could have noticed; or the opposite, being so fidgety or restless that you have been moving around a lot more than usual: Not at all Thoughts that you would be b vinny off or of hurting yourself in some way: Not at all Total Score: 0 Interpretation and Intervention Depression Yodit grey Findings: Negative Follow-Up for Depression: : review of PH Q-9 found negative result, no follow-up needed SDOH Questions SDOH Questions In the past year have you been worried about losing housing?: No In the past year have you or any family members you live with been unable to get any of the following when it was really needed? Check all that apply:: None Fall Risk History Have you had any falls with injury i n the past year?: No Have you had two or more falls in the st year?: No Communication Needs Communication Needs Does the patient have a hearing impairment: No Does the patient have a vision impairmen t?: Yes ?If yes, what is the vision impairment?: Glasses Does the patient have a cognition impair ment?: No Examination Category Sub-Category Detail Notes Category Not es General Examination GENERAL APPEARANCE: well dev eloped, well nourished, in no acute distress HEAD: normocephalic, atrau matic EYES: pupils equal, round, reactive to light and accommodation, sclera non- icteric EARS: normal THROAT: clear NECK/THYROID: neck supple, full ra nge of motion, no cervical lymphadenopathy, no bruits HEART: regular rate and rhy thm, S1, S2 normal, no murmurs LUNGS: clear to auscultatio n bilaterally ABDOMEN: soft, nontender, non distended, bowel sounds present, normal, no organomegaly , no masses palpable NEUROLOGIC: nonfocal, motor stre ngth normal upper and lower extremities, sensory exam intact SKIN: warm and dry, no liliane picious lesions EXTREMITIES: no clubbing, cyanosi s, or edema MALE GENITOURINARY: uncircumcised, teste s descended bilaterally, no testicular mass RECTAL EXAM: normal tone, no exte rnal hemorrhoids, no masses palpable, prostate normal, stool guaiac negative ORAL CAVITY: mucosa moist
--- OUTSIDE RECORDS SUMMARY | 2024-05-14 16:11 | XMS_ITS ---
Author Organization Samuel Hassan MD Address [address] [place], [place] [id number] Care Team Providers Care Craft Coordinator Name Role Phone Sonya Samuel Primary Care Provider [phone] Results Component Value Reference Range Notes Complete Blood Count Auto Di ff Reviewed date:05/05/2024 12:20:21 PM Interpretation: Performing Lab:[facility], [address] [place] [phone] Notes/Report: White Blood Count 9.3 4.8-10.8 X10*3/uL Red Blood Count 4.71 4.60-5.80 X10*6/uL Hemoglobin 16.1 14.0-18.0 g/dl Hematocrit 48.0 42.0-52.0 % Mean Corpuscular Volume 101.9 80.0-98.0 fL Mean Corpuscular Hemoglobin 34.2 27.0-33.0 pg Mean Corpuscular HGB Conc 33.5 31.0-36.0 g/dl Red Cell Distribution Width 14.6 11.0-16.0 % Platelet Count 263 160-400 X10*3/uL Mean Platelet Volume 9.8 9.4-12.4 fL Neutrophils Percent Auto 65.2 45-73 % Imm Gran Pct Auto 0.5 0.0-0.4 % Lymphocytes Percent Auto 23.6 20-40 % Monocytes Percent Auto 8.6 2-11 % Eosinophils Percent Auto 1.6 0-4 % Basophils Percent Auto 0.5 0-2 % NRBC Pct Auto 0.0 0.0-0.2 /100WBC Neutrophils Absolute Auto 6.1 2.0-8.3 x10*3/u L Imm Gran Abs Auto 0.05 0.00-0.03 X10*3/uL Lymphocytes Absolute Auto 2.2 1.2-4.9 X10*3/u L Monocytes Absolute Auto 0.8 0.1-1.2 X10*3/uL Eosinophils Absolute Auto 0.2 0.0-0.4 X10*3/u L Basophils Absolute Auto 0.1 0.0-0.2 X10*3/uL NRBC Abs Auto 0.000 0.0-0.012 X10*3/uL [facility] [place]. Panel Fa st Reviewed date:05/05/2024 12:19:43 PM Interpretation: Performing Lab:[facility], [address] [place] [phone] Notes/Report: Sodium 142 135-145 mmol/L Potassium 4.3 3.3-5.1 mmol/L Chloride 106 96-108 mmol/L Carbon Dioxide 28 22-29 mmol/L Anion Gap 12 12-20 Blood Urea Nitrogen 25 9-16 mg/dL Creatinine 1.02 0.5-1.4 mg/dL Estimated Glomerular Filt Rate > 60 Chronic Kidney Disease: Estimated GFR < 60 mL/min/1.73m2 Severe Kidney Disease: Estimated GFR < 15 mL/min/1.73m2 Glucose Fasting 103 60-99 mg/dL A fasting glucose from 100-125 mg/dl is considered impaired (pre-diabetes). Calcium 9.5 8.4-10.2 mg/dL Bilirubin Total 0.7 0.0-1.0 mg/dL Aspartate Amino Transferase 31 5-37 U/L Alanine Aminotransferase 19 0-40 U/L Total Protein 7.7 6.5-8.0 g/dL Albumin Level 4.0 3.5-5.0 g/dL Alkaline Phosphatase 91 39-117 U/L Lipid Panel Reviewed date:05/05/2024 12:04:21 PM Interpretation: Performing Lab:[facility], [address] [place] [phone] Notes/Report: Triglycerides 152 <150 mg/dL Slight Lipemia. Desirable Triglyceride: less than 150 mg/dL Borderline High Triglyceride 150-199 mg/dL High Triglyceride: 200-499 mg/dL Very High Triglyceride: greater than or equal to 5OO mg/dL Cholesterol 203 <200 mg/dL Desirable Cholesterol: less than 200 mg/dL Borderline High Cholesterol: 200-239 mg/dL High Cholesterol: greater than 239 mg/dL LDL Cholesterol Calculated 131 <100 mg/dL Desirable LDL: less than 100 mg/dL Near Optimal/Above Optimal LDL: 110-129 mg/dL Borderline High LDL: 130-159 mg/dL High LDL: 160-189 mg/dL Very High LDL: greater than or equal to 190 mg/dL HDL Cholesterol 42 >40 mg/dL Desirable HDL: greater than 40 mg/dL Note: This HDL assay may give artificially low results in patients with liver disease. PSA,Total (Free>4and<10) Reviewed date:05/12/2024 12:01:42 PM Interpretation:FARA 05/12PSA Performing Lab:[facility], [address] [place] [phone] Notes/Report: PSA,Total (Free>4and<10) 14.36 0.00-4.00 ng/mL A Free PSA was not performed: The percentage of Free PSA can be used to enhance the differentiation of prostate cancer from benign prostatic disease in subjects whose PSA levels are between 4.0 and 10.0 ng/mL. For subjects whose PSA levels are below 4.0 or above 10.0 ng/mL, the risk of prostate cancer is determined on the basis of the PSA alone. Therefore the % Free PSA is recommended only for those subjects whose PSA levels are between 4.0 and 10.0 ng/mL. PSA methodology: Pérez Alinity i Chemiluminescent Microparticle Immunoassay (CMIA) Microalbumin, Random Reviewed date:05/05/2024 12:08:35 PM Interpretation: Performing Lab:[facility], [address] [place] [phone] Notes/Report: Creatinine Urine 100.37 Microalbumin Urine 45.0 Microalbum/Creatinine Ratio Ur 44.8 <30 ug/mg cr Albumin/Creatinine Ratio Reference Ranges: Normal: < 30 ug/mg creatinine Microalbuminuria: 30 - 300 ug/mg creatinine Clinical Albuminuria: > 300 ug/mg creatinine Hemoglobin A1c Reviewed date:05/05/2024 12:03:01 PM Interpretation: Performing Lab:[facility], [address] [place] [phone] Notes/Report: Hemoglobin A1c % 5.7 <6.0 % Hemoglobin A1C Reference Range Adults: 4.8 - 6.0 % Non diabetic: < 6.0 % Goal: < 7.0 % Additional Action Suggested: > 8.0 % Note: Hemoglobin A1c results are invalid for patients with abnormal amounts of HbF. Blood transfusions may impact the HbA1c concentration in the patient sample. Estimated Average Glucose 117 eAG = Estimated average glucose which is %A1C expressed as average glucose, using the formula of the [id number] Average Glucose study (ADAG), Diabetes Care, Vol.31,#8, Sep. 2007 UA ClnCatch+Micro w/rflx Cul t Reviewed date:05/05/2024 12:20:39 PM Interpretation: Performing Lab:[facility], [address] [place] [phone] Notes/Report: Urine, Clean Catch Color Urine Yellow Appearance Urine Clear PH 6.5 5.0-9.0 Glucose Urine UA Negative Negative mg/dL Urine Blood Negative Negative Specific [place] - Urine 1.015 1.005-1.025 Urine Protein Negative Neg-Trace mg/dL Urine Ketones Negative Negative mg/dL Nitrite Urine Negative Negative Leukocyte Esterase Urine Negative Negative RBC Urine 0-2 0-2 /HPF WBC Urine 0-5 0-5 /HPF Squamous Epithelial Cell Urine 0-2 0-2 /HPF Bacteria Urine None Seen None Seen Hyaline Casts Urine 0-2 0-2 /LPF REASON FOR VISIT FASTING LABS Encounters Encounter Location Date Provider Diagnosis Samuel Hassan MD [address] [place], [place] [phone] 05/05/2024 Samuel Hassan Blood tests for routine general physical examination Z00.00 ; Prediabetes R73.09 ; Essential hypertension I10 and Elevated LDL cholesterol level E78.00 Assessments Encounter Date Diagnosis (ICD Code) Assessment Notes Treatment Notes Treatment Clinical Notes Section Notes 05/05/2024 Blood tests for routine general physical examination (ICD-10 - Z00.00) 05/05/2024 Prediabetes (ICD-10 - R73.09) 05/05/2024 Essential hypertension (ICD-10 - I10) 05/05/2024 Elevated LDL cholesterol level (ICD-10 - E78.00) Plan Of Treatment Next Appt Details Provider Name:Samuel Knight ier, 11/12/2024 10:15:00 AM, [address], [address], [place], [place], [id number], Provider Name:Samuel abdulr, 05/07/2025 07:45:00 AM, [address], [address], [place], [place], [id number], Provider Name:Samuel abdulr, 05/14/2025 09:30:00 AM, [address], [address], [place], [place], [id number], Progress Notes * Deven PERDOMO FDOB:1940 (83 yo M)Acc No.[id number]:05/05/2024 Progress Note Patient:?Deven PERDOMO Alex Provider:?Samuel Hassan MD :1940???Age:83 Y???Sex:Male George e:05/05/2024 Address:[facility] [address] [id number] Subjective: * Chief Complaints: * ???1. FASTING LABS. * Medical History:? Objective: * Vitals:? Assessment: * Assessment: 1.?Blood tests for routine g eneral physical examination - Z00.00 (Primary)???2.?Prediabetes - R73.09???3.?Essential hypertension - I10???4.?Elevated LDL cholesterol level - E78.00??? Plan: * Treatment: 2.?Prediabetes?LAB: Complete Blood Count Auto Diff (Collection Date & Time - 05/05/2024 07:30 AM) ?LAB: [facility] [place]. Panel Fast (Collection Date & Time - 05/05/2024 07:30 AM) ?LAB: Lipid Panel (Collection Date & Time - 05/05/2024 07:30 AM) ?LAB: PSA,Total (Free>4and<10) (Collection Date & Time - 05/05/2024 07:30 AM) ?LAB: Microalbumin, Random (Collection Date & Time - 05/05/2024 07:30 AM) ?LAB: Hemoglobin A1c (Collection Date & Time - 05/05/2024 07:30 AM) ?LAB: UA ClnCatch+Micro w/rflx Cult (Collection Date & Time - 05/05/2024 07:30 AM) 3.?Essential hypertension?LAB: Complete Blood Count Auto Diff (Collection Date & Time - 05/05/2024 07:30 AM) ?LAB: [facility] [place]. Panel Fast (Collection Date & Time - 05/05/2024 07:30 AM) ?LAB: Lipid Panel (Collection Date & Time 05/05/2024 07:30 AM) ?LAB: PSA,Total (Free>4and<10) (Collection Date & Time - 05/05/2024 07:30 AM) ?LAB: Microalbumin, Random (Collection Date & Time - 05/05/2024 07:30 AM) ?LAB: Hemoglobin A1c (Collection Date & Time - 05/05/2024 07:30 AM) ?LAB: UA ClnCatch+Micro w/rflx Cult (Collection Date & Time - 05/05/2024 07:30 AM) 4.?Elevated LDL cholesterol level?LAB: Complete Blood Count Auto Diff (Collection Date & Time - 05/05/2024 07:30 AM) ?LAB: [facility] [place]. Panel Fast (Collection Date & Time - 05/05/2024 07:30 AM) ?LAB: Lipid Panel (Collection Date & Time - 05/05/2024 07:30 AM) ?LAB: PSA,Total (Free>4and<10) (Collection Date & Time - 05/05/2024 07:30 AM) ?LAB: Microalbumin, Random (Collection Date & Time - 05/05/2024 07:30 AM) ?LAB: Hemoglobin A1c (Collection Date & Time - 05/05/2024 07:30 AM) ?LAB: UA ClnCatch+Micro w/rflx Cult (Collection Date & Time - 05/05/2024 07:30 AM) * Procedure Codes:?62714 VENIP UNCT, ROUTINE* * * The named appointment provid er may or may not be the originator of this progress note, and it is not deemed complete until electronically signed by the appointment provider. Sign off status: Pending * Provider:?Samuel Hassan MD Date:?0 05/05/2024 Generated for Yasmine boo/Fortino/Ceeitting on:?05/14/2024 04:11 PM EDT
== END 2024-05-14 13:51 | disposition home or self-care (01) ==
LOC: HO.HCS 13:05
PROVIDERS: PCP Internal Medicine; Visit Provider Internal Medicine Cardiovascular Disease
DX: I48.0 Paroxysmal atrial fibrillation (principal); Z95.0 Presence of cardiac pacemaker
CPT/HCPCS: 93010; 93280; 99214; G2211

== ENCOUNTER → 2024-05-14 13:05 | Outpatient (BNVA) | payer MEDICARE, SELFPAY | PROVIDERS: PCP Internal Medicine; Visit Provider Internal Medicine Cardiovascular Disease | DX: I48.0 Paroxysmal atrial fibrillation (principal); Z45.018 Encounter for adjustment and management of other part of cardiac pacemaker | CPT/HCPCS: 93005; 93280; 99212 ==

== ENCOUNTER → 2024-06-25 23:59 | Outpatient (BNV) | payer MEDICARE, SELFPAY ==
--- NOTE | 2024-06-29 16:35 | A.OFFVIS_ITS ---
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 Mother No problems noted. Social History Are you a primary managed care analyst to a significant other at home: No Do you presently have visiting nurse or other home services: No Alcohol intake: never Patient Tobacco Use Status: Former Tobacco user Have you been hit, kicked, punched, or otherwise hurt by someone within the past year? If so, by whom?: No Are you DNR?: No Advance Directives: No Advance Directives Information Provided: Yes Office Procedures Cardiac Device Check Cardiac Device Check Details: Remote pacemaker report generated June 2024. Pacemaker function is adequate. Patient ventricularly pacer dependent [id number] Cardiac Device Interrogation, pacemaker Procedure code (CPT) selection complete Assessment & Plan Assessment & Plan (1) Cardiac pacemaker in situ: Comment: implanted February 2015 you for advanced AV block. Medtronic dual-chamber pacemaker Code(s): Z95.0 - Presence of cardiac pacemaker Category: Medical Plan: See above Coding Level of Care Code Procedure Only Diagnoses Cardiac pacemaker in situ Z95.0 CPT Codes Cardiac Device Check - Cardiac Device 12: [id number] Cardiac Device Interrogation, pacemaker ([id number])
== END ==
PROVIDERS: PCP Internal Medicine; Visit Provider Internal Medicine Cardiovascular Disease
DX: Z45.018 Encounter for adjustment and management of other part of cardiac pacemaker (principal)
CPT/HCPCS: 93294

== ENCOUNTER 2024-06-29 10:49 | Day surgery (SDC) | payer MEDICARE, SELFPAY ==
--- OUTSIDE RECORDS SUMMARY | 2024-04-14 13:59 | XMS_ITS | Patient Health Record ---
Author Organization Samuel Hassan MD Address [address] [place], [place] [id number] Care Team Providers Care Javascript Ui Developer Name Role Phone Floridalma Hassann Primary Care Provider Allergies No Known Allergies Results Component Value Reference Range Notes Complete Blood Count Auto Di ff Reviewed date:05/02/2023 12:25:00 PM Interpretation: Performing Lab:[facility], [address] [place] [phone] Notes/Report: White Blood Count 7.7 4.8-10.8 X10*3/uL [...] NRBC Abs Auto 0.000 0.0-0.012 X10*3/uL Comprehensive Ney. Panel Fa st Reviewed date:05/02/2023 12:26:32 PM Interpretation: Performing Lab:[facility], [address] [place] [phone] Notes/Report: Sodium 143 135-145 mmol/L Potassium 4.3 3.3-5.1 mmol/L Chloride 107 96-108 mmol/L Carbon Dioxide 25 22-29 mmol/L Anion Gap 15 12-20 Blood Urea Nitrogen 22 9-16 mg/dL Creatinine 1.10 0.5-1.4 mg/dL Estimated Glomerular Filt Rate > 60 NOTE: For -Afghan individuals, multiply the result by 1.210. Chronic [...] Panel Reviewed date:05/02/2023 12:25:18 PM Interpretation: Performing Lab:[address] [phone] Notes/Report: Triglycerides 135 <150 mg/dL Desirable Triglyceride: [...] date:05/10/2023 07:21:45 AM Interpretation:see back 05-09-23 Performing Lab:[address] [phone] Notes/Report: PSA,Total (Free>4and<10) 6.11 0.00-4.00 ng/mL PSA methodology: Pérez Alinity i Chemiluminescent Microparticle Immunoassay (CMIA) Microalbumin, Random Reviewed date:05/02/2023 12:48:22 PM Interpretation: Performing Lab:[address] [phone] Notes/Report: Creatinine Urine 96.90 Microalbumin Urine 41.0 Microalbum/Creatinine Ratio Ur 42.3 <30 ug/mg cr Albumin/Creatinine Ratio Reference Ranges: Normal: < 30 ug/mg creatinine Microalbuminuria: 30 - 300 ug/mg creatinine Clinical Albuminuria: > 300 ug/mg creatinine Hemoglobin A1c Reviewed date:05/02/2023 12:48:49 PM Interpretation: Performing Lab:[address] [phone] Notes/Report: Hemoglobin A1c % 5.8 <6.0 % [...] average glucose, using the formula of the A8O-Psbapwn Average Glucose study (ADAG), Diabetes Care, Vol.31,#8, Sep. 2007 UA ClnCatch+Micro w/rflx Cul t Reviewed date:05/05/2023 01:36:59 PM Interpretation: Performing Lab:[address] [phone] Notes/Report: Urine, Clean Catch Color Urine Yellow Appearance Urine Clear PH 5.5 5.0-9.0 Glucose Urine UA Negative Negative mg/dL Urine Blood Negative Negative Specific Celina - Urine 1.015 1.005-1.025 Urine Protein Trace Neg-Trace mg/dL Urine Ketones Negative Negative mg/dL Nitrite Urine Negative Negative Leukocyte Esterase Urine Negative Negative RBC Urine 0-2 0-2 /HPF WBC Urine 0-5 0-5 /HPF Squamous Epithelial Cell Urine 0-2 0-2 /HPF Bacteria Urine None Seen None Seen Hyaline Casts Urine 0-2 0-2 /LPF Complete Blood Count no Diff Reviewed date:04/23/2023 12:42:07 PM Interpretation: Performing Lab:[facility], [address] [place] [phone] Notes/Report: White Blood Count 9.4 4.8-10.8 X10*3/uL [...] Panel Reviewed date:04/23/2023 12:39:51 PM Interpretation: Performing Lab:[facility], [address] [place] [phone] Notes/Report: Sodium 142 135-145 mmol/L Potassium 4.4 3.3-5.1 mmol/L Slight Hemoly sis Chloride 103 96-108 mmol/L Carbon Dioxide 30 22-29 mmol/L Anion Gap 13 12-20 Blood Urea Nitrogen 19 9-16 mg/dL Creatinine 1.09 0.5-1.4 mg/dL Estimated Glomerular Filt Rate > 60 NOTE: For -Afghan individuals, multiply the result by 1.210. Chronic Kidney Disease: Estimated GFR < 60 mL/min/1.73m2 Severe Kidney Disease: Estimated GFR < 15 mL/min/1.73m2 Glucose Random 99 60-115 mg/dL Calcium 9.8 8.4-10.2 mg/dL PSA Free and Total Reviewed date:05/06/2023 12:43:36 PM Interpretation: Performing Lab:[facility], [address] [place] [phone] Notes/Report: Prostate Specific Ag Total 5.6 < OR = 4.0 ng/mL Percent Free Prostate Spec Ag 20 >25 % (calc) PSA(ng/mL) Free PSA(%) Estimated(x) Probability of Cancer(as%) 0-2.5 (*) Approx. 1 2.6-4.0(1) 0-27(2) 24(3) 4.1-10(4) 0-10 56 11-15 28 16-20 20 21-25 16 >or =26 8 >10(+) N/A >50 References:(1)Aneesh price et al.:Urology 60: 469-474 (2002) (2)Anika et al.:J.Urol 168: 922-925 (2001) Free PSA(%) Sensitivity(%) Specificity(%) < or = 25 85 19 < or = 30 93 9 (3)Anika et al.:YEYO 277: 5103-1771 (1996) (4)Catalona et al.:YEYO 279: 8039-2687 (1997) (x)These estimates vary with age, ethnicity, [...] of disease. THIS TEST WAS PERFORMED AT: [facility] [address] [address] JESSICA DE SANTIAGO MD Free Prostate Spec Ag 1.1 Basic Metabolic Panel Reviewed date:11/18/2023 05:51:09 PM Interpretation: Performing Lab:[facility], [address] [place] [phone] Notes/Report: Sodium 141 135-145 mmol/L Potassium 4.0 3.3-5.1 mmol/L Chloride 107 96-108 mmol/L Carbon Dioxide 26 22-29 mmol/L Anion Gap 12 12-20 Blood Urea Nitrogen 21 9-16 mg/dL Creatinine 1.11 0.5-1.4 mg/dL Estimated Glomerular Filt Rate > 60 NOTE: For -Afghan individuals, multiply the result by 1.210. Chronic Kidney Disease: Estimated GFR < 60 mL/min/1.73m2 Severe Kidney Disease: Estimated GFR < 15 mL/min/1.73m2 Glucose Random 126 60-115 mg/dL Calcium 9.5 8.4-10.2 mg/dL SARS-CoV2/FLU/RSV Reviewed date:02/23/2024 06:21:56 PM Interpretation: Performing Lab:[facility], [address] [facility], [place] [address] Notes/Report: Influenza A PCR NEGATIVE Negative Influenza B PCR NEGATIVE Negative Resp Syncy Virus RNA Qual PCR NEGATIVE Negative SARS COV2 PCR INHOUSE NEGATIVE Negative All test results must be correlated with clinical findings. Negative results do not preclude SARS-CoV2, influenza A virus, influenza B virus and/or RSV infection and should not be used as the sole basis for treatment or other patient management decisions. Negative results must be combined with clinical observations, patient history, and epidemiological information. This test has not been evaluated for monitoring treatment of infection. This test has been authorized by the FDA under an Emergency Use Authorization (EUA) for use by authorized laboratories. Testing performed on the [employer] GeneXpert utilizing real-time RT-PCR. All SARS CoV2 and positive influenza A/B results are reported to [facility]. XR chest 2V Reviewed date:02/21/2024 04:49:46 PM Interpretation: Performing Lab: Notes/Report: [facility] [address] [place] [address] [place] [address] XRay Report Signed Patient: Deven Escobar MR#: [id number] : 1940 Acct:[id number] Age/Sex: 83 / M ADM Date: 02/21/24 Loc: .[facility] Attending Dr: Joie Aguayo PA-C Ordering Physician: Joie Aguayo PA-C Date of Service: 02/21/24 Procedure(s): XR chest 2V Accession Number(s): [id number] cc: Samuel Hassan MD; Joie Aguayo PA-C CLINICAL HISTORY: R05.9 - Cough, unspecified 2 view chest x-ray Comparison: None Findings: No consolidation, pleural effusion or pneumothorax. Heart size is normal. Biventricular cardiac pacemaker. No acute fracture. IMPRESSION: 1. No acute findings. This document has been electronically signed by: Ashley Dillon DO on 02/21/2024 15:54:48 Dictated By: Ashley Dillon MD Signed By: <Electronically signed by Ashley Dillon MD in OV> 02/21/241555 DD/ 155 TD/TT: 02/21/241553 Product Lister: [facility] [address] [place] [address] [place] [address] XRay Report Signed Patient: Deven Escobar MR#: [id number] : 1940 Acct:[id number] Age/Sex: 83 / M ADM Date: 02/21/24 [facility] Att[facility] Dr: Vickie Aguayo PA-C Ordering Physician: Joie Aguayo PA-C Date of Service: 02/21/24 Procedure(s): XR alexandra st 2V Accession Number(s): [id number] cc: Samuel Hassan MD; Joie Aguayo PA-C CLINICAL HISTORY: R05.9 - Cough, unspecified 2 view chest x-ray Comparison: None Findings: No consolidation, pleural effusion or pneumothorax. Heart size is normal. Biventricular cardia c pacemaker. No acute fracture. IMPRESSION: 1. No acute findings. This document has be en electronically signed by: Ashley Dillon DO on 02/21/2024 15:54:48 Dictated By: Ashley Dillon MD Signed By: <Electronically signed by Ashley Dillon MD in OV> 02/21/241555 DD/ 53 TD/TT: 02/21/241553 Product Lister: Reason For Referral Reason bilateral carpal kelli juana Diagnosis 1 Bilateral carpal kelli juana syndrome (G56.03) Referral Organization Samuel Hassan MD Referring Provider First Name Samuel Referring Provider Last Name Sonya Referring Provider Speciality Internal M edicine Referred Provider Domitila Almeida Referred Provider Specialty Hand Surgery General Notes Kirstin Conde 12:58:29 PM EST > info faxed , Kisrtin Conde 01/31/2024 11:30:38 AM EST > was told Dr. Almeida is revewing referral , Kirstin Conde 02/06/2024 01:13:57 PM EST > patient is aware of appt Referral Priority Routine Referral Appointment Date 03/17/2024 Medications Medication SIG (Take, Route, Frequency, Duration) [...] every 4 hrs for 30 days Active Immunizations Vaccine Route Administration Date Status Comme [...] Administer ed Flu Vaccine Unknown 10/27/2013 Pending Social History Tobacco Use: Social History Observation Description Date Details (start date - stop date) Never Smoker NA - NA Tobacco Use/Smoking Question Answer Notes Patient is a nonsmoker Additional Findings: Tobacco Non-User Cu rrent non-smoker, currently using no form of tobacco Alcohol Screen Question Answer Notes Did you have a drink containing alcohol in the p ast year? No Points 0 Interpretation Negative Problems Problem Type SNOMED Code ICD Code Onset Dates Problem Status W/U Status Risk Notes Problem 796195182 Elevated BUN (R79.9) Active confirmed Problem 033973740 Other male erectile dysfunction (N52.8) Active confirmed Problem 22006584 Essential hypertension (I10) Active confirmed Problem 7535303 Prediabetes (R73.09) Active confirmed Problem 219487986 First degree heart block (I44.0) Active confirmed Problem 063856159 Elevated LDL cholesterol level (E78.00) Active confirmed Problem 62754949852008834 Bilateral carp al tunnel syndrome (G56.03) Active confirmed Problem 018584826 Mild intermittent asthmatic bronchitis with acute exacerbation (J45.21) Active confirmed Problem 242319333 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) Active confirmed Problem 54580045 Chest rales (R09.89) Active confirmed Problem 73885795 Acute idiopathic gout involving toe, 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) Active confirmed Problem 865028959 Chronic a-fib (I48.20) Active confirmed Vital Signs Blood pressure diastolic 58 mm Hg 01/03/2024 Height 66.25 in 01/03/2024 Blood pressure systolic 122 mm Hg 01/03/2024 Weight 171 lbs 01/03/2024 BMI 27.39 kg/m2 01/03/2024 Encounters Encounter Location Date Provider Diagnosis Samuel Hassan MD [address] [place] [phone] 05/02/2023 Samuel Hassan Blood tests for routine general physical examination Z00.00 ; Prediabetes R73.09 ; Essential hypertension I10 and Elevated LDL cholesterol level E78.00 Samuel Hassan MD [address] [place] [address] Drive [address] [place] [phone] 05/09/2023 Samuel Hassan Essential hypertension I10 ; Elevated LDL cholesterol level E78.00 ; History of pacemaker Z95.0 and Encounter for general adult medical examination without abnormal findings Z00.00 Samuel Hassan MD [address] [place] [address] Drive [address] [place] [phone] 11/07/2023 Samuel Hassan Essential hypertension I10 ; First degree heart block I44.0 and Encounter for immunization Z23 Samuel Hassan MD [address] [place], [place] [phone] 01/03/2024 Samuel Hassan Bilateral carpal tunnel syndrome G56.03 Samuel Hassan MD [address] [place], [place] [phone] 11/07/2023 Samuel Hassan Assessments Encounter Date Diagnosis (ICD Code) Assessment Notes Treatment Notes Treatment Clinical Notes Section Notes 05/02/2023 Blood tests for routine general physical examination (ICD-10 - Z00.00) 05/02/2023 Prediabetes (ICD-10 - R73.09) 05/09/2023 Essential hypertension (ICD-10 - I10) doing welll 05/09/2023 Elevated LDL cholesterol level (ICD-10 - E78.00) not high enough 11/07/2023 Essential hypertension (ICD-10 - I10) doing well on meds, stable, will contiue current regiment 11/07/2023 First degree heart block (ICD-10 - I44.0) doing well with pacer, will continue to follow [facility] cardiology 01/03/2024 Bilateral carpal tunnel syndrome (ICD-10 - G56.03) pendingdiagnostic testing , order faxed to [facility] dept 05/02/2023 Essential hypertension (ICD-10 - I10) 05/09/2023 History of pacemaker (ICD-10 - Z95.0) had to have lead replaced 11/07/2023 Encounter for immunization (ICD-10 - Z23) flu vaccine administered 05/02/2023 Elevated LDL cholesterol level (ICD-10 - E78.00) 05/09/2023 Encounter for general adult medical examination without abnormal findings (ICD-10 - Z00.00) Labs reviewed and discussed with patient, Plan Of Treatment Pending Test Test Name Order Date Electrocardiogram (EKG) 03/04/2015 Electrocardiogram (EKG) 04/10/2018 XR CHEST 2 VIEW PA & LAT 08/14/2012 XR CHEST 2 VIEW PA & LAT 07/02/2013 EMG 01/03/2024 Next Appt Details Provider Name:Samuel wallace, 05/05/2024 07:30:00 AM, [address], [address], [place], [place], [phone], Provider Name:Samuel Knight ier, 05/12/2024 10:30:00 AM, [address] [facility], [address], [place], [place], [phone], Insurance Providers Payer Name Payer Address Payer Phone Subscriber Number Group Number Insured Name Patient Relationship to Insured Coverage Start Date Coverage End Date [employer]AN [facility] [address] [place] [phone] [id number] Deven Escobar Self - patient is the insured [employer] [address] [place] [id number] Deven Escobar Self - patient is the insured Medical (General) History Medical History History ICD Code basal cell carcinoma kidney stones colonoscopy 2005 due in 10 y ears; colonoscopy done 08/26/15 w/Dr. Shah (no further testing required) Holter Monitor - 05/30/2012 no further psa 07/05/2017 crcl 73 Surgical History Surgery Date(Month/Year) discectomy
[2024-06-29 11:03] VITALS: BMI 27.0
[2024-06-29 11:14] VITALS: BP 153/68; PULSE 78; RESP 18; TEMP 36.7; O2SAT 95
--- NOTE | 2024-06-29 12:46 | MHC.SHP ---
Pre-Procedural Eval Section A - 24 Hr Update-Section A only Date of Service: 06/29/24 The patient is an INPATIENT: No Changes since office visit: No Cold of Flu in the past 2 weeks, No New Medical Problems, No Changes in Medication and No Patient answered all questions The patient has been examined within 24 hours of the surgical procedure. The History & Physical has been completed within 30 days and I have reviewed it.: Yes Section B - Complete if H&P > 30 days Chief Complaint: Carpal tunnel syndrome, left upper limb Allergies: Allergies Allergy/AdvReac Type Severity Reaction Status Date / Time No Known Allergies Allergy Verified 06/29/24 11:06 [No Known Allergies*] Plan Diagnosis/Plan: Unchanged I have reviewed the history and physical and performed a pertinent physical examination on my patient. No changes have occurred unless specified. Time Spent With Patient Time: Total time managing care of this patient today ____ minutes.
--- NOTE | 2024-06-29 12:48 | W.PM.OPN ---
Operative Note Operative Note Date of Service: 06/29/24 Narrative: Preop diagnosis: 1. Left Carpal tunnel syndrome Postop diagnosis: same Procedure: 1. Left Carpal tunnel release Surgeon: Domitila Almeida MD Computer Security Coordinator: None Anesthesia: local block using 1% lidocaine with epinephrine Findings: Thickened transverse carpal ligament. EBL: Less than 5 mL Specimens: None Complications: None Disposition: Brought to recovery room in stable condition Plan: Follow-up for 10-14 days for wound check and suture removal Indications: The patient is 83 years old, with left carpal tunnel syndrome that has been unresponsive to nonoperative management. The risks and benefits of operative treatment including but not limited to risk of damage to blood vessels, nerves, tendons, infection, persistent pain, persistent symptoms, or possible need for additional surgery were discussed with the patient and the patient wishes to proceed with surgery. Procedure: Once consent was obtained a local block was performed using a combination of 1% lidocaine with epinephrine. The patient was then brought back to the operating suite and placed on the operative table in supine position. The left upper extremity was prepped and draped in a standard surgical fashion. Once assured that we had a good block, a 2.0 cm longitudinal incision was made centered over the carpal tunnel. The incision was made through the skin to the subcutaneous tissues using a #15 blade. Dissection was made down to the level of the transverse carpal ligament with care being taken to protect the palmar cutaneous nerve. Once the transverse carpal ligament was clearly visualized, a longitudinal incision was made in the transverse carpal ligament 1st using a #15 blade, then using tenotomy scissors under direct visualization. Care was taken to look for and protect the motor branch of the median nerve when seen in this area. Once satisfied with our carpal tunnel release the wound was copiously irrigated with normal saline and hemostasis was obtained with a brief period of local pressure. The skin edges were reapproximated with some 5.0 nylon suture material and a sterile dressing was applied. The patient appears to have tolerated the procedure well and with no complications. All digits were well vascularized at the conclusion of the case.
[2024-06-29 13:49] VITALS: BP 175/72; PULSE 74; RESP 18; O2SAT 95
== END 2024-06-29 13:52 | disposition home or self-care (01) ==
PROVIDERS: PCP Internal Medicine; Visit Provider Orthopaedic Surgery
PROC: (CPT 64721; principal; 2024-06-29 12:00)
DX: G56.02 Carpal tunnel syndrome, left upper limb (principal); M25.532 Pain in left wrist; R20.0 Anesthesia of skin; R20.2 Paresthesia of skin; I10 Essential (primary) hypertension; I44.2 Atrioventricular block, complete; I48.0 Paroxysmal atrial fibrillation; Z95.0 Presence of cardiac pacemaker
CPT/HCPCS: 64721; J0171; J2003

== ENCOUNTER → 2024-06-29 10:49 | Outpatient (BNV) | payer MEDICARE, SELFPAY | PROVIDERS: PCP Internal Medicine; Visit Provider Orthopaedic Surgery | DX: G56.02 Carpal tunnel syndrome, left upper limb (principal) | CPT/HCPCS: 64721 ==

== ENCOUNTER 2024-07-14 08:03 | Outpatient (AMB) | payer MEDICARE, SELFPAY ==
--- OUTSIDE RECORDS SUMMARY | 2024-07-14 08:05 | XMS_ITS | Patient Health Record ---
Author Organization Samuel Hassan MD Address [address] [place], [place] [id number] Care Team Providers Care Nitro Worker Name Role Phone Floridalma Hassann Primary Care Provider [phone] Allergies No Known Allergies Results Component Value Reference Range Notes Complete Blood Count Auto Di ff Reviewed date:05/05/2024 12:20:21 PM Interpretation: Performing Lab:[facility], [address] [place] [phone] Notes/Report: White Blood Count 9.3 4.8-10.8 X10*3/uL [...] NRBC Abs Auto 0.000 0.0-0.012 X10*3/uL Comprehensive [place]. Panel Fa st Reviewed date:05/05/2024 12:19:43 PM Interpretation: Performing Lab:[facility], [address] [place] [phone] Notes/Report: Sodium 142 135-145 mmol/L Potassium 4.3 [...] Panel Reviewed date:05/05/2024 12:04:21 PM Interpretation: Performing Lab:[facility], [address] [place] [phone] Notes/Report: Triglycerides 152 <150 mg/dL Slight Lipemia. [...] Reviewed date:05/12/2024 12:01:42 PM Interpretation:FARA 05/12PSA Performing Lab:[facility], [address] [place] [phone] Notes/Report: PSA,Total (Free>4and<10) 14.36 0.00-4.00 ng/mL A [...] Random Reviewed date:05/05/2024 12:08:35 PM Interpretation: Performing Lab:[address] [phone] Notes/Report: Creatinine Urine 100.37 Microalbumin Urine 45.0 Microalbum/Creatinine Ratio Ur 44.8 <30 ug/mg cr Albumin/Creatinine Ratio Reference Ranges: Normal: < 30 ug/mg creatinine Microalbuminuria: 30 - 300 ug/mg creatinine Clinical Albuminuria: > 300 ug/mg creatinine Hemoglobin A1c Reviewed date:05/05/2024 12:03:01 PM Interpretation: Performing Lab:[facility], [address] [place] [phone] Notes/Report: Hemoglobin A1c % 5.7 <6.0 % [...] average glucose, using the formula of the W1C-Dbqeufo Average Glucose study (ADAG), Diabetes Care, Vol.31,#8, 2007 UA ClnCatch+Micro w/rflx Cul t Reviewed date:05/05/2024 12:20:39 PM Interpretation: Performing Lab:[facility], [address] [place] [phone] Notes/Report: Urine, Clean Catch Color Urine Yellow Appearance Urine Clear PH 6.5 5.0-9.0 Glucose Urine UA Negative Negative mg/dL Urine Blood Negative Negative Specific [place] - Urine 1.015 1.005-1.025 Urine Protein Negative Neg-Trace mg/dL Urine Ketones Negative Negative mg/dL Nitrite Urine Negative Negative Leukocyte Esterase Urine Negative Negative RBC Urine 0-2 0-2 /HPF WBC Urine 0-5 0-5 /HPF Squamous Epithelial Cell Urine 0-2 0-2 /HPF Bacteria Urine None Seen None Seen Hyaline Casts Urine 0-2 0-2 /LPF Basic Metabolic Panel Reviewed date:11/18/2023 05:51:09 PM Interpretation: Performing Lab:[facility], [address] [place] [phone] Notes/Report: Sodium 141 135-145 mmol/L Potassium 4.0 3.3-5.1 mmol/L Chloride 107 96-108 mmol/L Carbon Dioxide 26 22-29 mmol/L Anion Gap 12 12-20 Blood Urea Nitrogen 21 9-16 mg/dL Creatinine 1.11 0.5-1.4 mg/dL Estimated Glomerular Filt Rate > 60 NOTE: For -Gibraltarian individuals, multiply the result by 1.210. Chronic Kidney Disease: Estimated GFR < 60 mL/min/1.73m2 Severe Kidney Disease: Estimated GFR < 15 mL/min/1.73m2 Glucose Random 126 60-115 mg/dL Calcium 9.5 8.4-10.2 mg/dL SARS-CoV2/FLU/RSV Reviewed date:02/23/2024 06:21:56 PM Interpretation: Performing Lab:[facility], [address] [place] [phone] Notes/Report: Influenza A PCR NEGATIVE Negative Influenza [...] by authorized laboratories. Testing performed on the Pump! GeneXpert utilizing real-time RT-PCR. All SARS CoV2 and positive influenza A/B results are reported to [facility]. XR chest 2V Reviewed date:02/21/2024 04:49:46 PM Interpretation: Performing Lab: Notes/Report: [facility] [place] [address] XRay Report Signed Patient: Deven Escobar MR#: [id number] : 1940 Acct:[id number] Age/Sex: 83 / M ADM Date: 02/21/24 Loc: .[facility] Attending Dr: Joie Aguayo PA-C Ordering Physician: Joie Aguayo PA-C Date of Service: 02/21/24 Procedure(s): XR chest 2V Accession Number(s): [id number] cc: Samuel Hassan MD; Joie Aguayo PA-C [...] in OV> 02/21/241555 DD/ 53 TD/TT: 02/21/241553 Rustic Terrazzo Setter: [facility] [address] [place] [address] [place] [address] XRay Report Signed Patient: Deven Escobar MR#: [id number] : 1940 Acct:[id number] Age/Sex: 83 / M ADM Date: 02/21/24 [facility] Dr: Vickie Aguayo PA-C Ordering Physician: Joie Aguayo PA-C Date of Service: 02/21/24 Procedure(s): XR alexandra st 2V Accession Number(s): [id number] cc: Samuel Hassan MD; Joie Aguayo PA-C [...] in OV> 02/21/241555 DD/ 53 TD/TT: 02/21/241553 Rustic Terrazzo Setter: Reason For Referral Reason bilateral carpal kelli juana Diagnosis 1 Bilateral carpal kelli juana syndrome (G56.03) Referral Organization Samuel Hassan MD Referring Provider First Name Samuel Referring Provider Last Name Sonya Referring Provider Speciality Internal M edicine Referred Provider Domitila Almeida Referred Provider Specialty Hand Surgery General Notes Kirstin Razo 12:58:29 PM EST > info faxed , Kirstin Razo 01/31/2024 11:30:38 AM EST > was told Dr. Almeida is revewing referral , Kirstin Razo 02/06/2024 01:13:57 PM EST > patient is [...] Problem Status W/U Status Risk Notes Problem 312256325 Elevated BUN (R79.9) Active confirmed Problem 926203462 Other male erectile dysfunction (N52.8) Active confirmed Problem 43455047 Essential hypertension (I10) Active confirmed Problem 1373358 Prediabetes (R73.09) Active confirmed Problem 130814252 First degree heart block (I44.0) Active confirmed Problem 890571922 Elevated LDL cholesterol level (E78.00) Active confirmed Problem 85171541692585865 Bilateral carp al tunnel syndrome (G56.03) Active confirmed Problem 260181460 Mild intermittent asthmatic bronchitis with acute exacerbation (J45.21) Active confirmed Problem 322675800 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) Active confirmed Problem 22200650 Chest rales (R09.89) Active confirmed Problem 51066385 Acute idiopathic gout involving toe, 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) Active confirmed Problem 124926327 Chronic a-fib (I48.20) Active confirmed Vital Signs Blood pressure diastolic 56 mm Hg 05/12/2024 Height 66.25 in 05/12/2024 Blood pressure systolic 142 mm Hg 05/12/2024 Weight 171 lbs 05/12/2024 BMI 27.39 kg/m2 05/12/2024 Encounters Encounter Location Date Provider Diagnosis Samuel Hassan MD [address] [place] [id number] 05/05/2024 Samuel Hassan Blood tests for routine general physical examination Z00.00 ; Prediabetes R73.09 ; Essential hypertension I10 and Elevated LDL cholesterol level E78.00 Samuel Hassan MD [address] [place] [id number] 11/07/2023 Samuel Hassan Essential hypertension I10 ; First degree heart block I44.0 and Encounter for immunization Z23 Samuel Hassan MD [address] [place] [id number] 01/03/2024 Samuel Hassan Bilateral carpal tunnel syndrome G56.03 Samuel Hassan MD [address] [place] [id number] 05/12/2024 Samuel Hassan Annual physical exam Z00.00 ; Elevated PSA R97.20 ; Essential hypertension I10 ; Chest rales R09.89 ; Elevated BUN R79.9 and Foreign body in ear, left, initial encounter T16.2XXA Samuel Hassan MD [address] [place] [id number] 11/07/2023 Samuel Hassan MD [address] [place] [address] Drive [address] [place] [id number] 05/04/2024 Samuel Hassan Assessments Encounter Date Diagnosis (ICD Code) Assessment Notes Treatment Notes Treatment Clinical Notes Section Notes 05/05/2024 Blood tests for routine general physical examination (ICD-10 - Z00.00) 11/07/2023 Essential hypertension (ICD-10 - I10) doing well on meds, stable, will contiue current regiment 11/07/2023 First degree heart block (ICD-10 - I44.0) doing well with pacer, will continue to follow [facility] cardiology 01/03/2024 Bilateral carpal tunnel syndrome (ICD-10 - G56.03) pendingdiagnostic testing , order faxed to [facility] dept 05/12/2024 Annual physical exam (ICD-10 - Z00.00) Labs reviewed and discussed with patient 05/12/2024 Elevated PSA (ICD-10 - R97.20) is seeing john razo in june/ send copy of psa to him/ LABS FAXED TO JOHN @ UROLOGY 05/05/2024 Prediabetes (ICD-10 - R73.09) 11/07/2023 Encounter for immunization (ICD-10 - Z23) flu vaccine administered 05/12/2024 Essential hypertension (ICD-10 - I10) doing well 05/05/2024 Essential hypertension (ICD-10 - I10) 05/12/2024 Chest rales (ICD-10 - R09.89) has chronic 05/05/2024 Elevated LDL cholesterol level (ICD-10 - E78.00) 05/12/2024 Elevated BUN (ICD-10 - R79.9) is related 05/12/2024 Foreign body in ear, left, initial encounter (ICD-10 - T16.2XXA) removed with foreceps and ear was normal Plan Of Treatment Pending Test Test Name Order Date Electrocardiogram (EKG) 03/04/2015 Electrocardiogram (EKG) 04/10/2018 XR CHEST 2 VIEW PA & LAT 08/14/2012 XR CHEST 2 VIEW PA & LAT 07/02/2013 EMG 01/03/2024 Next Appt Details Provider Name:Samuel wallace, 11/12/2024 01:45:00 PM, [address] [place] [address], [address], [phone], Provider Name:Samuel wallace, 05/07/2025 07:45:00 AM, [address] [place] [address], [address], [phone], Provider Name:Samuel abdulr, 05/14/2025 09:30:00 AM, [address] [place] [address], [address], [phone], Insurance Providers Payer Name Payer Address Payer Phone Subscriber Number Group Number Insured Name Patient Relationship to Insured Coverage Start Date Coverage End Date [employer] [facility] [address] [place] [phone] [id number] Deven Escobar Self - patient is the insured [employer] [address] [place] [address] [id number] Deven Escobar Self - patient is the insured Medical (General) History Medical History History ICD Code basal cell carcinoma kidney stones colonoscopy 2005 due in 10 y ears; colonoscopy done 08/26/15 w/Dr. Shah (no further testing required) Holter Monitor - 05/30/2012 no further psa 07/05/2017 crcl 73 Surgical History Surgery Date(Month/Year) discectomy
--- NOTE | 2024-07-14 08:16 | MHC.OFFVIS ---
Vital Signs 07/14/24 08:28 Height 5 ft 6 in Weight 167 lb BMI 27.0 Handedness Left Intake Visit Reasons: PO LT CTR 06/29/24 AR Intake Note: Deven is a 83 year old left hand dominant male who presents today for his PO visit for his left CTR 06/29/24 AR. Patient states that his symptoms has improved slightly. He mentions that he is still having some numbness. Sutures removed and steri strips applied. Allergies No Known Allergies [No Known Allergies*] Allergy (Verified 07/14/24 08:28) [facility] Medical History Paroxysmal atrial fibrillation Cardiac pacemaker in situ Complete heart block HTN (hypertension) Surgical History (Updated 06/29/24 @ 12:51 by Lisa Raymond RN) Pacemaker at end of battery life History of permanent cardiac pacemaker placement Hx of laminectomy Hx of hernia repair Family History Father No problems noted. Mother No problems noted. Social History (Updated 07/14/24 @ 08:29 by Luis Rodriguez) Are you a primary healthcare marketer to a significant other at home: No Do you presently have visiting nurse or other home services: No Alcohol intake: never Patient Tobacco Use Status: Former Tobacco user Current occupational status: retired Current occupation: left hand dominant Physical Exam Vital Signs: BMI result Body Mass Index 27.0 Assessment & Plan Assessment & Plan (1) Bilateral carpal tunnel syndrome: Code(s): G56.03 - Carpal tunnel syndrome, bilateral upper limbs Category: Medical Plan History of Present Illness The patient is an 83-year-old male presenting for a follow-up evaluation after left carpal tunnel release surgery. He is experiencing improved, but lingering numbness and tingling in the tips of the fingers post-surgery, with noted improvement compared to preoperative symptoms which consisted of intermittent numbness and tingling throughout. The surgical site is healing well without significant concerns. The patient also reported a recent onset of pain in the right wrist associated with certain movements after lifting a heavy object, suspected to be de Quervain's tenosynovitis. The patient has not used any braces or undergone therapy for this condition previously. Review of Systems - Neurological: Reports intermittent numbness and tingling in the tips of the fingers on the left hand. - Musculoskeletal: Reports sudden pain in the right wrist associated with movement, following heavy lifting. Systems reviewed and are negative except as per HPI and below Physical Exam - Upper Extremity- - Normal sensation to all digits of the left hand. - Full closed fist and extension of digits observed in the left hand without difficulty. -Well approximated and well healing incision site noted on the volar left wrist Results Procedure Plan For the postoperative numbness and tingling, instruction was given regarding continued care of the incision, avoidance of certain activities, and expectations for sensory recovery. Concerning the right wrist, conservative management is advised with possible escalation to a steroid injection if symptoms persist. The patient agreed with the plan and will schedule a steroid injection appointment if necessary. Patient was informed and verbally consented to the use of an ambient scribe for clinic note documentation during this visit. Discussion Notes I discussed with the patient the typical recovery timeline following a left carpal tunnel release, indicating potential improvement of sensation over the following nine months. The recommendation was provided to avoid underwater and dirty activities around the incision site for another week while keeping the area clean and dry, with a gradual return to full activity over two weeks. The patient has the option to follow up if interested in pursuing surgery on the right side in the future. Additionally, I addressed the possible de Quervain's tenosynovitis, explaining its nature, and recommended conservative management initially, with a brace provided if needed. I offered to perform a steroid injection into the affected tendon sheath should symptoms not improve with time and activity modification, ensuring the patient could schedule this at his convenience. We agreed on no immediate follow-up visit. Patient Instructions - Avoid immersion of the left hand in water for one more week. - Avoid gardening, fishing, and lifting heavy objects for one more week. - Use a light dressing over the incision when outside. - Apply a light dressing when necessary, and use a little bit of antibiotic ointment. - Gradually increase activity in the left hand after two weeks. - Maintain movement and gentle stretches of the right wrist. - Monitor symptoms of the right wrist and schedule an appointment if issues persist for a steroid injection. - Return if the left hand symptoms change or worsen. - Contact the office to discuss the potential for right wrist injections or other interventions when ready. Coding Level of Care Code Global (67449) Diagnoses Bilateral carpal tunnel syndrome G56.03
[2024-07-14 08:28] VITALS: BMI 27.0
== END 2024-07-14 08:39 | disposition home or self-care (01) ==
LOC: HO.HOS 08:04
PROVIDERS: PCP Internal Medicine
DX: G56.03 Carpal tunnel syndrome, bilateral upper limbs (principal)
CPT/HCPCS: 99024

== ENCOUNTER → 2024-07-14 08:03 | Outpatient (BNVA) | payer MEDICARE, SELFPAY | PROVIDERS: PCP Internal Medicine | DX: G56.01 Carpal tunnel syndrome, right upper limb (principal); R20.0 Anesthesia of skin; Z48.811 Encounter for surgical aftercare following surgery on the nervous system; Z98.890 Other specified postprocedural states | CPT/HCPCS: 99212 ==

== ENCOUNTER → 2024-08-22 23:59 | Outpatient (BNV) | payer MEDICARE, SELFPAY ==
--- NOTE | 2024-08-27 16:30 | MHC.OFFVIS ---
Intake Visit Reasons: Remote device check- Medtronic Allergies No Known Allergies (No Known Allergies*) Allergy (Verified 07/14/24 08:28) PFSH Medical History Paroxysmal atrial fibrillation Cardiac pacemaker in situ Complete heart block HTN (hypertension) Surgical History (Updated 06/29/24 @ 12:51 by Lisa Raymond, CINDY) Pacemaker at end of battery life History of permanent cardiac pacemaker placement Hx of laminectomy Hx of hernia repair Family History Father No problems noted. Mother No problems noted. Social History (Updated 07/14/24 @ 08:29 by Luis Rodriguez) Are you a primary healthcare consulting manager to a significant other at home: No Do you presently have visiting nurse or other home services: No Alcohol intake: never Patient Tobacco Use Status: Former Tobacco user Current occupational status: retired Current occupation: left hand dominant Office Procedures Cardiac Device Check Cardiac Device Check Details: Remote pacemaker report generated on 08/23/2024. Pacemaker function is adequate. Brief episodes of atrial fibrillation noted [id number] Cardiac Device Interrogation, pacemaker Procedure code (CPT) selection complete Assessment & Plan Assessment & Plan (1) Cardiac pacemaker in situ: Comment: implanted February 2015 you for advanced AV block. Medtronic dual-chamber pacemaker Code(s): Z95.0 - Presence of cardiac pacemaker Category: Medical Plan: See above Coding Level of Care Code Procedure Only Diagnoses Cardiac pacemaker in situ Z95.0 CPT Codes Cardiac Device Check - Cardiac Device 12: [id number] Cardiac Device Interrogation, pacemaker ([id number])
== END ==
PROVIDERS: PCP Internal Medicine; Visit Provider Internal Medicine Cardiovascular Disease
DX: I48.91 Unspecified atrial fibrillation (principal); Z95.0 Presence of cardiac pacemaker
CPT/HCPCS: 93294

== ENCOUNTER 2024-11-09 13:06 | Outpatient (AMB) | payer MEDICARE, SELFPAY ==
--- NOTE | 2024-11-09 13:08 | MHC.OFFVIS ---
Vital Signs 11/09/24 13:09 Height 5 ft 6 in Weight 165 lb 5.547 oz BMI 26.7 BP 134/82 Blood Pressure Location Lt brachial Position Sitting Pulse 83 Intake Visit Reasons: 6m follow up w device check Intake Note: 6 month follow-up with Medtronic Leather Crafter Required: No Allergies No Known Allergies (No Known Allergies*) Allergy (Verified 07/14/24 08:28) Medication List - Last Reconciled 11/09/24 by Dex Blair MD irbesartan-hydrochlorothiazide 150-12.5 mg 1 tab PO DAILY rivaroxaban (Xarelto) 20 mg PO DAILY HPI Comments Details: Deven comes for follow-up. He has no cardiac symptoms. He said he continues to walk 4 miles on a daily basis without any symptoms. No lightheadedness, syncope. No prolonged palpitation irregular heartbeat. No bleeding issues or neurologic events. No orthopnea, PND, leg edema. No exertional chest pain. Blood pressures been generally well controlled. [facility] Medical History Paroxysmal atrial fibrillation Cardiac pacemaker in situ Complete heart block HTN (hypertension) Surgical History Pacemaker at end of battery life History of permanent cardiac pacemaker placement Hx of laminectomy Hx of hernia repair Family History Father No problems noted. Mother No problems noted. Social History Are you a primary personal caregiver to a significant other at home: No Do you presently have visiting nurse or other home services: No Alcohol intake: never Patient Tobacco Use Status: Former Tobacco user Current occupational status: retired Current occupation: left hand dominant Review of Systems Const Denies chills, Denies fatigue, Denies fever(s), Denies frequent falls, Denies weakness, Denies weight gain and Denies weight loss ENT Denies dizziness Card Denies chest pain, Denies leg edema, Denies lightheadedness, Denies palpitations, Denies dyspnea, Denies dyspnea on exertion, Denies orthopnea and Denies other (loss of consciousness) Resp Denies cough, Denies dyspnea and Denies dyspnea on exertion GI Denies hematochezia and Denies change in stool character Musc Denies abnormal gait, Denies muscle weakness, Denies numbness, Denies radiating pain into limb and Denies tingling Neuro Denies abnormal gait, Denies dizziness, Denies frequent falls, Denies numbness, Denies tingling and Denies weakness Endo Denies fatigue and Denies palpitations Physical Exam Vital Signs: Last Vital Signs Pulse 83 11/09/24 13:09 BP 134/82 11/09/24 13:09 BMI result Body Mass Index 26.7 Const General: cooperative, comfortable, no acute distress, alert and awake Nutritional Appearance: overweight Orientation/consciousness: patient oriented x3 Limitations: no limitations Neck Neck: Yes trachea midline, Yes supple and Yes no JVD Resp Effort & Inspection: normal respiratory effort Auscultation: clear to auscultation bilaterally Cardio Jugular venous distension: no JVD Palpation: normal PMI Rate: regular rate Rhythm: regular rhythm Heart sounds: S1 normal heart sound present and S2 normal heart sound present GI Auscultation: normal bowel sounds Skin General skin exam: no rashes or lesions noted and ecchymosis Neuro General: patient oriented x3 and no focal motor deficits Extrem General: Yes no clubbing, cyanosis or edema Psych Appearance: grossly normal Office Procedures Cardiac Device Check Cardiac Device Check Details: Dual-chamber Medtronic pacemaker in place. Programmed in DDD at 60 beats per minute. Ventricular pacing 100% of the time. Atrial sensing is adequate. Atrial pacing thresholds elevated reprogrammed to provide adequate safety. Ventricular pacing thresholds adequate and reprogrammed to enhance battery life. Pacing lead impedance is stable. One episode of atrial fibrillation noted lasted 21 hours. Battery life is at 10.9 years [id number] Cardiac Device Check, pacemaker dual lead Procedure code (CPT) selection complete Assessment & Plan Assessment & Plan (1) Cardiac pacemaker in situ: Comment: implanted February 2015 you for advanced AV block. Medtronic dual-chamber pacemaker Code(s): Z95.0 - Presence of cardiac pacemaker Category: Medical Plan: Cardiac pacemaker in-situ for advanced AV block and now ventricularly pacer dependent. No underlying ventricular rhythm. Doing well from cardiac perspective. At this point time will continue monitor remotely every 3 months. Follow up in the clinic in 6 months time. (2) Paroxysmal atrial fibrillation: Code(s): I48.0 - Paroxysmal atrial fibrillation Category: Medical Plan: Paroxysmal atrial fibrillation without any obvious symptoms. Overall burden in his still low but has prolonged episodes. At this point time would continue with oral anticoagulation with Xarelto. Requires semi annual renal function test. No indication for antiarrhythmic drug therapy at this point time. Avoidance of stimulants was discussed. Will continue monitor pacer telemetry. (3) HTN (hypertension): Code(s): I10 - Essential (primary) hypertension Category: Medical Plan: Hypertension which is currently well optimized advised to monitor blood pressure at home maintain a log. Goal blood pressure less than 130/84. Low-salt diet was discussed. Advised to maintain activity level as tolerated. Advised to call me with any new symptoms. Will follow up in the clinic in 6 months time, sooner p.r.n.. Thank you for allowing me to partake in his care Coding Level of Care Code Est Pt Level 4 (98275) Complex EM visit Add On G2211 Diagnoses Cardiac pacemaker in situ Z95.0 Paroxysmal atrial fibrillation I48.0 HTN (hypertension) I10 CPT Codes Cardiac Device Check - Cardiac Device 2: [id number] Cardiac Device Check, pacemaker dual lead ([id number])
[2024-11-09 13:09] VITALS: BP 134/82; PULSE 83; BMI 26.7
== END 2024-11-09 13:27 | disposition home or self-care (01) ==
LOC: HO.HCS 13:07
PROVIDERS: PCP Internal Medicine; Visit Provider Internal Medicine Cardiovascular Disease
DX: I48.0 Paroxysmal atrial fibrillation (principal); Z95.0 Presence of cardiac pacemaker; I10 Essential (primary) hypertension
CPT/HCPCS: 93280; 99214; G2211

== ENCOUNTER → 2024-11-09 13:06 | Outpatient (BNVA) | payer MEDICARE, SELFPAY | PROVIDERS: PCP Internal Medicine; Visit Provider Internal Medicine Cardiovascular Disease | DX: Z45.010 Encounter for checking and testing of cardiac pacemaker pulse generator [battery] (principal); I10 Essential (primary) hypertension; I48.0 Paroxysmal atrial fibrillation | CPT/HCPCS: 93280; 99212 ==

== ENCOUNTER → 2024-11-24 23:59 | Outpatient (BNV) | payer MEDICARE, SELFPAY ==
--- NOTE | 2024-11-25 16:44 | A.OFFVIS_ITS ---
Intake Visit Reasons: Remote device check- Medtr[employer] Allergies No Known Allergies (No Known Allergies*) Allergy (Verified 07/14/24 08:28) PFSH Medical History Paroxysmal atrial fibrillation Cardiac pacemaker in situ Complete heart block HTN (hypertension) Surgical History Pacemaker at end of battery life History of permanent cardiac pacemaker placement Hx of laminectomy Hx of hernia repair Family History Father No problems noted. Mother No problems noted. Social History Are you a primary child care specialist to a significant other at home: No Do you presently have visiting nurse or other home services: No Alcohol intake: never Patient Tobacco Use Status: Former Tobacco user Current occupational status: retired Current occupation: left hand dominant Office Procedures Cardiac Device Check Cardiac Device Check Details: Remote pacemaker report generated 11/24/2024. Pacemaker function is adequate. Patient ventricularly pacer dependent [id number] Cardiac Device Interrogation, pacemaker Procedure code (CPT) selection complete Assessment & Plan Assessment & Plan (1) Cardiac pacemaker in situ: Comment: implanted February 2015 you for advanced AV block. Medtronic dual-chamber pacemaker Code(s): Z95.0 - Presence of cardiac pacemaker Category: Medical Plan: See above Coding Level of Care Code Procedure Only Diagnoses Cardiac pacemaker in situ Z95.0 CPT Codes Cardiac Device Check - Cardiac Device 12: [id number] Cardiac Device Interrogation, pacemaker ([id number])
== END ==
PROVIDERS: PCP Internal Medicine; Visit Provider Internal Medicine Cardiovascular Disease
DX: Z45.018 Encounter for adjustment and management of other part of cardiac pacemaker (principal)
CPT/HCPCS: 93294